=== PATIENT | female | born 1935 | race Caucasian/White ===

== ENCOUNTER 2022-07-19 14:41 | Emergency (ER) | payer MEDICARE, MEDICAID, SELFPAY ==
--- NOTE | ~2022-07-19 | XR_ITS ---
EXAMINATION: XR ELBOW, RIGHT CLINICAL INFORMATION: Pain, fall. COMPARISON: None available. TECHNIQUE: AP, lateral, and oblique views of the right elbow. FINDINGS: No acute fractures or subluxation. Evaluation of joint effusion is somewhat limited due to partial extension of the elbow on the lateral view, however accounting for this technique limitation, no discrete large joint effusion is noted. No unexpected radiopaque foreign bodies. XR/XR elbow RT 2V IMPRESSION: No acute fractures or subluxation.
--- NOTE | ~2022-07-19 | XR_ITS ---
EXAMINATION: XR RIBS, RIGHT CLINICAL INFORMATION: Pain. COMPARISON: None available. TECHNIQUE: 3 views of the right ribs were obtained. FINDINGS: No focal airspace opacity, pleural effusion or pneumothorax. Tortuous thoracic aorta with atherosclerotic disease, otherwise normal appearance of the cardiomediastinal silhouette. No evidence of displaced rib fractures. Age indeterminate compression deformity in the lower thoracic spine. Left upper quadrant surgical clips noted. Extensive vascular calcifications noted. XR/XR ribs RT min 3V w CXR1V IMPRESSION: 1. No acute cardiopulmonary findings. 2. No evidence of displaced rib fractures. 3. Age indeterminate compression deformity in the lower thoracic spine, correlate with point tenderness and if indicated further correlation with dedicated radiographic views of the thoracic and lumbar spine.
--- NOTE | ~2022-07-19 | XR_ITS ---
EXAMINATION: XR FOOT, LEFT CLINICAL INFORMATION: Pain, fall. COMPARISON: None available. TECHNIQUE: AP, lateral, and oblique views of the left foot. FINDINGS: Decreased bone mineralization and diffuse nonspecific heterogeneity of the bone marrow, limiting assessment of subtle fractures. No discrete displaced fracture or subluxation. 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 Nonspecific diffuse soft tissue thickening. Extensive vascular calcifications. XR/XR foot LT 2V IMPRESSION: 1. No acute displaced fracture or malalignment. 2. Decreased bone mineralization and nonspecific heterogeneity of the bone marrow, limiting assessment of subtle fractures. If indicated, consider further evaluation with CT or MR.
[2022-07-19 14:50] VITALS: BP 152/94; PULSE 82; O2SAT 98
[2022-07-19 15:30] VITALS: BP 165/54; PULSE 81; RESP 18; TEMP 36.8; O2SAT 97; BMI 29.5
[2022-07-19 16:55] VITALS: BP 175/66; PULSE 86; RESP 16; TEMP 36.8; O2SAT 98
--- NOTE | 2022-07-19 17:00 | ED_ITS ---
HPI - Fall General Chief Complaint: Fall Stated Complaint: FALL,L ANKLE/BODY PAIN PER EMS Time Seen by Provider: 07/19/22 15:55 Source: patient Mode of arrival: EMS Limitations: no limitations History of Present Illness HPI Narrative: Patient comes to the emergency room complaining of a pain in her left foot and ribs on the left side. According to the patient, yesterday she was trying to get a scale from beneath the bed, patient kneeled down to grab it, then she she was unable to stand up. Patient states that she did not fall. Patient yelled for help, and people who work at the facility help her to stand up. Patient denies being on blood thinners. Related Data Allergies Allergy/AdvReac Type Severity Reaction Status Date / Time Sulfa (Sulfonamide Allergy Unknown UNKNOWN Unverified 10/24/19 16:06 Antibiotics) [SULFA (SULFONAMIDE ANTIBIOTICS)] Review of Systems Review of Systems: Constitutional : No Weight loss, No Fever, No Chills, No Night Sweats, No Fatigue, No Malaise ENT/Mouth : No Hearing loss, No Ear Pain, No Nasal Congestion, No Sinus Pain, No Hoarseness, No sore throat, No Rhinorrhea, No Swallowing Difficulty Eyes: No Eye Pain, No Swelling, No Redness, No Foreign Body, No Discharge, No Vision Changes Cardiovascular : No Chest Pain, No SOB, No Dyspnea on Exertion, No Orthopnea, No Edema, No Palpitations Respiratory : No Cough, No Sputum, No Wheezing, No Smoke Exposure, No Dyspnea Gastrointestinal : No Nausea, No Vomiting, No Diarrhea, No Constipation, No abdominal Pain, No Hematochezia, No Melena Genitourinary : no irregular bleeding, No Dysuria, No Urinary Frequency, No Hematuria, No Urinary Incontinence, No Urgency, No Flank Pain, No Urinary Flow Changes, No Hesitancy Musculoskeletal : Patient complaining of rib pain on the left, left foot pain Skin : Complaining of a skin abrasion on the right elbow Neuro : No Weakness, No Numbness, No Paresthesias, No Loss of Consciousness, No Dizziness, No Headache Psych : No Anxiety/Panic, No Depression, No SI/HI/AH/VH, No Social Issues, Heme/Lymph: No Bruising, No Bleeding,No Lymphadenopathy Endocrine : No Polyuria, No Polydipsia, No Temperature Intolerance PMFSH Social History Social History Alcohol intake: never Smoked in Last 30 Days: No Use of substances other than those prescribed or required for medical reasons: No Advance Directives: No Advance Directives Information Provided: No Physical Exam Vital Signs: Vital Signs: Last Vital Signs Temp 98.4 F 07/19/22 18:38 Pulse 90 07/19/22 18:38 Resp 16 07/19/22 18:38 BP 189/49 H 07/19/22 18:38 Pulse Ox 96 07/19/22 18:38 O2 Del Method Room Air 07/19/22 18:38 BMI result Body Mass Index 29.5 Const: Other: Appearance: Alert. Oriented X3. No acute distress. Eyes: Pupils equal, round and reactive to light. ENT: Pharynx normal. Neck: Normal inspection. Neck supple. No lymph nodes noted. No crepitus CVS: Normal heart rate and rhythm. Pulses normal. Normal S1 and S2, complaining of left-sided rib pain Respiratory: No respiratory distress. Breath sounds normal. No Wheezing. No rales Abdomen: Soft and nontender. No rigidity. No distention. Skin: Skin warm and dry. There is a skin tear of the right elbow, the skin on the tear looks old, almost necrotic Extremities: No lower extremity edema. Left foot has ecchymosis on the dorsum, normal flexion and extension Neuro: Oriented X 3. No motor deficit. No sensory deficit. Moving all extremities. No slurred speech. CN 2 through 12 grossly intact Psych: calm, cooperative, normal affect Course Course Course Narrative: -patient denies falling, patient states that she has had a difficult time standing up from a kneeling position -patient denies head or neck injury -x-rays pending. Medical Decision Making Medical Decision Making [facility] Narrative: -the skin on the tear look necrotic, patient was numbed with 1 % lidocaine 2 mL, the necrotic tissue was removed, now the abrasion looks clean. Radiology Impression Discussion of test interpretation with radiology: I have reviewed the radiologist's reading. Radiologist Impression: 1.? No acute cardiopulmonary findings. 2.? No evidence of displaced rib fractures. 3.? Age indeterminate compression deformity in the lower thoracic spine, correlate with point tenderness and if indicated further correlation with dedicated radiographic views of the thoracic and lumbar spine. 1.? No acute displaced fracture or malalignment. 2.? Decreased bone mineralization and nonspecific heterogeneity of the bone marrow, limiting assessment of subtle fractures. If indicated, consider further evaluation with CT or MR. Discharge Plan Discharge Clinical Impression: Fall, Contusion, Skin tear of right upper extremity Patient Disposition: Home, Self-Care Instructions: Skin Tear (ED) Additional Instructions: Please follow-up with your primary care physician tomorrow. If you have any worsening or new symptoms, please return to the emergency room or call 911
[2022-07-19 18:38] VITALS: BP 189/49; PULSE 90; RESP 16; TEMP 36.9; O2SAT 96
--- NOTE | 2022-07-19 18:50 | MHC.EDTECH ---
PATIENT WAS INCONIENT OF URINE ,CARE GIVEN ,BED PAD CHANGE .
--- NOTE | 2022-07-19 19:53 | PC.NURSE ---
assumed care of pt at 1900 - pt resting comfortably on stretcher in no apparent distress. pt offers no complaints at this time. discharge ready, waiting for ambulance back to facility.
[2022-07-19 19:56] VITALS: BP 181/38; PULSE 86; RESP 16; TEMP 36.6
--- NOTE | 2022-07-19 19:58 | MHC.EDTECH ---
this pct offer patient food ,pt said she not hungry ,and did not want anything to drink or eat ,patient is dry and was reposition ,2000 vitals sign taken warm blanket given .
--- NOTE | 2022-07-19 20:20 | PC.NURSE ---
This rn called facility and left a message letting them know patient is returning to facility via ambulance.
== END 2022-07-19 20:27 | disposition home or self-care (01) ==
PROVIDERS: Emergency Provider Emergency Medicine
DX: S90.02XA Contusion of left ankle, initial encounter (principal); S29.9XXA Unspecified injury of thorax, initial encounter; M25.572 Pain in left ankle and joints of left foot; M25.521 Pain in right elbow; M79.10 Myalgia, unspecified site; M79.672 Pain in left foot; W01.0XXA Fall on same level from slipping, tripping and stumbling without subsequent striking against object, initial encounter; Y93.9 Activity, unspecified; Y92.9 Unspecified place or not applicable; Y99.9 Unspecified external cause status; Z79.899 Other long term (current) drug therapy
CPT/HCPCS: 71101; 73070; 73620; 99284

== ENCOUNTER 2023-03-11 17:02 | Emergency (ER) | payer MEDICARE, MEDICAID, SELFPAY ==
[2023-03-11 17:10] VITALS: BP 156/38; PULSE 85; PULSE 92; RESP 18; TEMP 36.6; O2SAT 96; O2SAT 97; BMI 30.6
--- NOTE | 2023-03-11 17:24 | PC.NURSE ---
coming from [facility] for uti symptoms ongoing for over 2 weeks. states that she ambulates to the bathroom using a walker. watching tv in room with call darby within reach
--- NOTE | 2023-03-11 17:32 | ED_ITS ---
HPI - Female Genitourinary General Chief complaint: Urogenital-Female Stated complaint: BLADDER PAIN X2WKS, FREQUENT URINATION Time Seen by Provider: 03/11/23 17:32 Source: patient and EMS Mode of arrival: EMS Limitations: no limitations History of Present Illness HPI Narrative: Patient is an 87 year old assigned female at with a history of CKD presenting to the emergency department today from [facility] for increased urinary frequency and abdominal pressure. Patient states that she recently noticed that she is going to the bathroom much more and is having some lower abdominal pressure. Patient denies any dizziness, lightheadedness, nausea, vomiting, fever, chills, blurry vision, double vision, loss of vision, chest pain, difficulty breathing, shortness of breath, back pain, night sweats, pain with urination, increased urinary urgency, blood in [his/her/their] urine or stool, syncope or a near syncopal episode, recent trauma or falls, bowel incontinence, bladder incontinence, bowel retention, bladder retention, or any other complaints at this time. MD elicited complaint: dysuria Location of symptoms: suprapubic Severity: mild Female Urogenital Radiation: Suprapubic Severity scale (1-10): 3 Quality of pain: dull Consistency: constant Vaginal discharge: none Vaginal bleeding: none Urinary symptoms: Frequency Exacerbating factors: urination Relieving factors: none Sexual activity: No Patient : No Possible : postmenopausal Related Data Previous Rx's Medication Instructions Recorded cefuroxime axetil 250 mg tablet 250 mg PO BID 7 days #14 tabs 03/11/23 Allergies Allergy/AdvReac Type Severity Reaction Status Date / Time Sulfa (Sulfonamide Allergy Unknown UNKNOWN Unverified 10/24/19 16:06 Antibiotics) [SULFA (SULFONAMIDE ANTIBIOTICS)] Review of Systems 2 Constitutional: Constitutional: Reports no additional constitutional complaints, Denies chills, Denies fever(s) and Denies night sweats Eyes: Eyes: Reports no additional eye complaints, Denies blurry vision, Denies change in vision, Denies diplopia, Denies eye discharge, Denies loss of vision and Denies eye pain ENT: Denies dizziness Cardiovascular: Cardiovascular: Reports no additional cardiovascular complaints, Denies chest pain, Denies lightheadedness, Denies Loss of Consciousness and Denies dyspnea Respiratory: Respiratory: Reports no additional respiratory complaints and Denies dyspnea Gastrointestinal: Gastrointestinal: Reports no additional gastrointestinal complaints, Reports abdominal pain, Denies melena, Denies hematochezia, Denies change in bowel habits and Denies change in stool character Genitourinary: Genitourinary: Denies hematuria, Denies urinary frequency, Denies dysuria, Denies urinary incontinence, Denies urinary hesitancy and Denies urinary urgency Comments: increased urinary frequency Musculoskeletal: Musculoskeletal: Reports no additional musculoskeletal complaints, Denies numbness and Denies tingling Neurologic: Denies dizziness, Denies loss of vision, Denies numbness and Denies tingling Psychiatric: Psychiatric: Reports no additional psychiatric complaints Endocrine: Endocrine: Reports no additional endocrine complaints Hematologic/Lymphatic: Hematologic/Lymphatic: Reports no additional hematologic/lymphatic complaints Allergic/Immunologic: Allergic/Immunologic: Reports no additional allergic/immunologic complaints PMFSH Past Medical History Attestation statement: The following information was validated with the patient. Source: old records reviewed and nursing notes reviewed Social History Social History Alcohol intake: never Advance Directives: Yes Advance Directives on File: Yes Advance Directives Date on File: 07/20/22 Patient : No Physical Exam 2 Vital Signs: Vital Signs: Last Vital Signs Temp 97.9 F 03/11/23 17:10 Pulse 85 03/11/23 17:10 Resp 18 03/11/23 17:10 BP 156/38 H 03/11/23 17:10 Pulse Ox 96 03/11/23 17:10 O2 Del Method Room Air 03/11/23 17:10 BMI result Body Mass Index 30.6 Const: General: cooperative, no acute distress, alert and awake Nutritional Appearance: well nourished Orientation/consciousness: patient oriented x3 Limitations: no limitations HEENT: Head: Yes normal to inspection and Yes atraumatic Ears: hearing grossly normal bilaterally and external ears normal General nose exam: Normal external nose present, no nasal discharge noted and no epistaxis Face and sinus: Yes normal facial exam, No abrasion and No laceration Mouth: Normal oral and palatal mucosa present, no drooling and no muffled voice Eyes: General: appearance normal, both eyes and all related structures P eriorbital: periorbital findings normal Eyelids: Yes eyelids normal C onjunctivae: conjunctivae normal Pupils: Equal, round and reactive pupils present EOM: EOMs intact bilaterally Neck: Neck: Yes normal visual inspection, Yes full ROM and Yes no lymphadenopathy Chest: Chest palpation & inspection: normal inspection of the chest Resp: Effort & Inspection: normal respiratory effort and able to speak in complete sentences GI: Inspection: Yes normal to inspection Palpation (GI): Soft to palpation Neuro: General: patient oriented x3 and moves all extremities Cranial nerves: Yes Equal, round and reactive pupils present Cognition (Neuro): n ormal cognition Motor exam (neuro): 5/5 motor strength present throughout Sensory Exam: Normal double simultaneous stimulation for sensation C oordination: [id number] test normal Extrem: General: Yes normal to inspection, Yes full ROM and Yes capillary refill normal Psych: Appearance: grossly normal Mental Status: mental status grossly normal Affect: normal affect Attitude: cooperative Thought process: N ormal thought process present Thought content: Normal thought content present Insight: Good insight present (Psych) Medications Administered Discontinued Medications Generic Name Dose Route Start Last Admin Trade Name Freq PRN Reason Stop Dose Admin Cefuroxime Axetil 250 mg 03/11/23 18:30 03/11/23 18:36 Cefuroxime Axetil 250 Mg Tablet PO 03/11/23 18:31 250 mg ONCE ONE Administration Medical Decision Making Medical Decision Making [facility] Narrative: Patient is an 87 year old assigned female at with a history of CKD presenting to the emergency department today with lower abdominal pressure and increased urinary frequency. Patient's physical exam was unremarkable. Patient's blood work showed slightly elevated BUN and CR however, this is chronic for the patient with her CKD. Patient's urine showed an acute infection. I explained my physical exam findings as well as all test results to the patient. I answered all questions asked by the patient. Patient was given her first dose of antibiotic while in the department. I stressed the importance of the patient taking her medication as prescribed. I stressed the importance of the patient following up with her primary care provider. I stressed the importance of the patient returning to the emergency department immediately if her symptoms were to worsen or if she were to develop any dizziness, shortness of breath, difficulty breathing, chest pain, blurry vision, loss of vision, nausea, vomiting, abdominal pain, fever, chills, back pain, or any other complaints. Patient verbalized agreement and understanding with this treatment plan and discharge. Differential Diagnosis Differential Diagnoses: The differential diagnosis associated with the presentation includes UTI Cystitis CKD MELLO Admission/Observation Consideration of admission/observation: Escalation of care including admission/observation considered Patient would have been admitted to the hospital had her work up had any findings where hospital admission was appropriate and her clinical presentation warranted hospital admission. Lab Data [facility] Lab Attestation statement: I reviewed the patient's lab results. My interpretation of these results are in the [facility] Rationale portion of this note. 03/11/23 17:50 03/11/23 17:50 Labs: Lab Results 03/11/23 03/11/23 Range/Units 17:50 18:05 WBC 4.3 L (4.8-10.8) X10*3/uL RBC 2.53 L (4.20-5.50) X10*6/uL Hgb 8.7 L (12.0-16.0) g/dl Hct 27.0 L (37.0-47.0) % MCV 106.7 H (80.0-98.0) fL MCH 34.4 H (27.0-33.0) pg MCHC 32.2 (31.0-35.0) g/dl RDW 16.7 H (11.0-16.0) % Plt Count 141 L (160-400) X10*3/uL MPV 10.8 (9.4-12.3) fL Immature Gran % (Auto) 0.7 H (0.0-0.4) % Neut % (Auto) 55.8 (45-73) % Lymph % (Auto) 29.0 (20-40) % [place] % (Auto) 9.1 (2-11) % Eos % (Auto) 4.9 H (0-4) % Baso % (Auto) 0.5 (0-2) % Lymph # (Auto) 1.2 (1.2-4.9) X10*3/uL [place] # (Auto) 0.4 (0.1-1.2) X10*3/uL Eos # (Auto) 0.2 (0.0-0.4) X10*3/uL Baso # (Auto) 0.0 (0.0-0.2) X10*3/uL Abs Immat Gran (auto) 0.03 (0.00-0.03) X10*3/uL Absolute Neuts (auto) 2.4 (2.0-8.3) x10*3/uL Absolute Nucleated RBC 0.000 (0.0-0.012) X10*3/uL Nucleated RBC % (auto) 0.0 (0.0-0.2) /100WBC Sodium 141 (135-145) mmol/L Potassium 4.4 (3.3-5.1) mmol/L Chloride 113 H (96-108) mmol/L Carbon Dioxide 21 L (22-29) mmol/L Anion Gap 11 L (12-20) BUN 30 H (9-16) mg/dL Creatinine 1.95 H (0.5-1.4) mg/dL Estim Creat Clear Calc 18.2 Estimated GFR 24 Random Glucose 110 (60-115) mg/dL Calcium 9.5 (8.4-10.2) mg/dL Total Bilirubin 0.3 (0.0-1.0) mg/dL AST 12 (5-31) U/L ALT 8 (0-31) U/L Alkaline Phosphatase 48 (39-117) U/L Total Protein 7.1 (6.5-8.0) g/dL Albumin 3.1 L (3.5-5.0) g/dL Urine Color Yellow Urine Appearance Turbid Urine pH 5.5 (5.0-9.0) Ur Specific [place] 1.015 (1.005-1.025) Urine Protein 100 (2+) H (Neg-Trace) mg/dL Urine Glucose (UA) Negative (Negative) mg/dL Urine Ketones Negative (Negative) mg/dL Urine Blood Large (3+) H (Negative) Urine Nitrite Negative (Negative) Ur Leukocyte Esterase Large (3+) H (Negative) Urine RBC >20 H (0-2) /HPF Urine WBC >50 H (0-5) /HPF Ur Squamous Epith Cells 6-10 (0-2) /HPF Urine Bacteria 1+ (None Seen) Hyaline Casts 0-2 (0-2) /LPF Independent Historian Clinical information obtained from an independent historian. History obtained from or confirmed by: EMS (EMS provided additional history and confirmed the history provided by the patient.) Prescription Management I considered prescription management with: Antibiotic (patient prescribed an antibiotic for UTI) Chronic Conditions Patient?s care impacted by: Other (CKD) Discharge Plan Discharge Clinical Impression: Urinary tract infection Patient Disposition: Home, Self-Care Instructions: Urinary Tract Infection in Older Adults (ED) Additional Instructions: Follow up with your primary care provider. Return to the emergency department immediately if your symptoms worsen or if you develop any dizziness, shortness of breath, difficulty breathing, chest pain, blurry vision, loss of vision, nausea, vomiting, abdominal pain, fever, chills, back pain, or any other complaints. Prescriptions: New cefuroxime axetil 250 mg tablet 250 mg PO BID 7 Days Qty: 14 0RF Referrals: [facility] [Provider Group] (Call to establish and follow up with a primary care provider. If you already have a primary care provider, please follow up with them.) [facility] [Provider Group] (Call to establish and follow up with a primary care provider. If you already have a primary care provider, please follow up with them.) [facility] [Provider Group] (Call to establish and follow up with a primary care provider. If you already have a primary care provider, please follow up with them.) Interventions: ED Discharge Assessment Last Done: 03/11/23 19:57 Discharge Date/Time: 03/11/23 19:59 Print Language: Welsh
[2023-03-11 17:55] LABS: MANUAL DIFF FLAG NO
[2023-03-11 18:11] LABS: Appearance Urine Turbid; Color Urine Yellow; Glucose Urine UA Negative (Negative); Leukocyte Esterase Urine Large (3+) (Negative); Nitrite Urine Negative (Negative); PH 5.5 (5.0-9.0); Specific Gravity - Urine 1.015 (1.005-1.025); UMIC TRIGGER UACC YES; Urine Blood Large (3+) (Negative); Urine Ketones Negative (Negative); Urine Protein 100 (2+) mg/dL (Neg-Trace)
[2023-03-11 18:13] LABS: Alanine Aminotransferase 8 U/L (0-31); Albumin Level 3.1 g/dL (3.5-5.0); Alkaline Phosphatase 48 U/L (39-117); Anion Gap 11 (12-20); Aspartate Amino Transferase 12 U/L (5-31); Bilirubin Total 0.3 mg/dL (0.0-1.0); Blood Urea Nitrogen 30 mg/dL (9-16); Calcium 9.5 mg/dL (8.4-10.2); Carbon Dioxide 21 mmol/L (22-29); Chloride 113 mmol/L (96-108); Creatinine Clr Calc Pharmacy 18.2; Estimated Glomerular Filt Rate 24; Glucose Random 110 mg/dL (60-115); Potassium 4.4 mmol/L (3.3-5.1); Sodium 141 mmol/L (135-145); Total Protein 7.1 g/dL (6.5-8.0)
[2023-03-11 18:16] LABS: Basophils Percent Auto 0.5 % (0-2); Eosinophils Absolute Auto 0.2 X10*3/uL (0.0-0.4); Eosinophils Percent Auto 4.9 % (0-4); Hemoglobin 8.7 g/dl (12.0-16.0); Imm Gran Abs Auto 0.03 X10*3/uL (0.00-0.03); Imm Gran Pct Auto 0.7 % (0.0-0.4); Lymphocytes Absolute Auto 1.2 X10*3/uL (1.2-4.9); Mean Corpuscular HGB Conc 32.2 g/dl (31.0-35.0); Mean Corpuscular Hemoglobin 34.4 pg (27.0-33.0); Mean Corpuscular Volume 106.7 fL (80.0-98.0); Mean Platelet Volume 10.8 fL (9.4-12.3); Monocytes Absolute Auto 0.4 X10*3/uL (0.1-1.2); Monocytes Percent Auto 9.1 % (2-11); Neutrophils Absolute Auto 2.4 x10*3/uL (2.0-8.3); Neutrophils Percent Auto 55.8 % (45-73); Platelet Count 141 X10*3/uL (160-400); Red Blood Count 2.53 X10*6/uL (4.20-5.50); Red Cell Distribution Width 16.7 % (11.0-16.0); White Blood Count 4.3 X10*3/uL (4.8-10.8)
--- NOTE | 2023-03-11 18:22 | PC.NURSE ---
ambulated using walker with strong, steady gait. urine sample obtained. call darby remains within reach.
[2023-03-11 18:24] LABS: Bacteria Urine 1+ (None Seen); Hyaline Casts Urine 0-2 /LPF (0-2); RBC Urine >20 /HPF (0-2); UACC Culture Trigger YES; WBC Urine >50 /HPF (0-5)
[2023-03-11] MEDS: cefuroxime axetiL 250 MG TABLET PO (18:36)
--- NOTE | 2023-03-11 19:56 | PC.NURSE ---
Called [facility] and gave nursing report to Carolyn as pt is returning via EMS.
== END 2023-03-11 19:59 | disposition home or self-care (01) ==
PROVIDERS: Emergency Provider Emergency Medicine Emergency Medical Services
DX: N39.0 Urinary tract infection, site not specified (principal)
CPT/HCPCS: 36415; 80053; 81001; 85025; 87086; 87088; 87186; 99283; 99284

== ENCOUNTER 2023-04-07 09:33 | Inpatient (IN) | payer MEDICARE, MEDICAID, SELFPAY ==
[2023-04-07] VITALS (8 sets, daily range): BP systolic 118–151; BP diastolic 44–93; PULSE 99–110; RESP 16–20; TEMP 36.2–36.7; O2SAT 90–95; BMI 26.4; BMI 26.6
--- NOTE | ~2023-04-07 | US_ITS ---
EXAMINATION: US RETROPERITONEAL COMPLETE (RENAL) CLINICAL INFORMATION: Renal failure, evaluate for obstruction. COMPARISON: None available. TECHNIQUE: Real-time imaging of the kidneys and bladder. FINDINGS: RIGHT KIDNEY: 9.2 x 4.2 x 4.1 cm (SAG x AP x TRV). The kidney is normal in size, contour, and echogenicity. Renal cortical thickness is normal. No calculi or focal parenchymal lesions. No hydronephrosis. LEFT KIDNEY: 9.0 x 4.4 x 3.5 cm (SAG x AP x TRV). The kidney is normal in size, contour, and echogenicity. Renal cortical thickness is normal. No focal parenchymal lesions or hydronephrosis. There is a 0.9 cm calculus projecting over the renal pelvis. BLADDER: Partially distended. Bilateral ureteral jets are demonstrated. Prevoid bladder volume is 77.4 mL. Postvoid bladder volume was not obtained. US/US retroperitoneal comp IMPRESSION: Nonobstructive 0.9 cm left renal calculus.
--- NOTE | ~2023-04-07 | CT_ITS ---
EXAMINATION: CT HEAD WITHOUT CONTRAST CLINICAL INFORMATION: Encephalopathy COMPARISON: None available. TECHNIQUE: Contiguous axial imaging was performed from the skull base to vertex without intravenous administration of contrast. This CT examination was performed using dose optimization techniques as appropriate, variously including the following: *Automated exposure control *Adjustment of mA and/or kV according to patient size (this includes techniques or standardized protocols for targeted exams where dose is matched to indication/reason for exam; i.e. extremities or head) *Use of iterative reconstruction technique DLP: 6:15 mGy-cm FINDINGS: There is underlying atrophy. Vascular calcifications are seen. No evolving infarct, mass lesion, mass effect, midline shift, hemorrhage or extra-axial fluid collections are identified. Lens extractions have been performed. Mild left ethmoid sinus disease. CT/CT head/brain wo IV con IMPRESSION: Age related volume loss. No acute intracranial pathology. Mild sinus disease.
--- NOTE | ~2023-04-07 | XR_ITS ---
EXAMINATION: XR CHEST CLINICAL INFORMATION: Shortness of breath COMPARISON: Right rib from 07/19/2022 TECHNIQUE: Frontal view of the chest was obtained. FINDINGS: Focal radiopacity involving the right upper lobe suggesting infectious/inflammatory etiology. Bronchial thickening. No pneumothorax. Trachea is midline. Cardiomediastinal silhouette is not enlarged. Aorta demonstrates tortuosity with atherosclerotic calcifications. No large pleural effusion. Degenerative changes of the thoracolumbar spine. Soft tissues are unremarkable. XR/XR chest 1V IMPRESSION: 1. Focal radiopacity involving the right upper lobe suggesting infectious/inflammatory etiology. 2. Bronchial thickening.
--- NOTE | 2023-04-07 10:13 | ED.GENADULT ---
HPI - General Adult General Chief complaint: General Medical Stated complaint: FLU SYMPTOMS INCREASED WEAKNESS Time Seen by Provider: 04/07/23 09:42 Source: patient Mode of arrival: ambulatory Limitations: other (Poor historian) History of Present Illness HPI narrative: This is an 88-year-old female hx of htn, ckd history of recent influenza + on 04/01/23 presenting from [facility] for concerns of weakness, decreased appetite, productive cough of yellow sputum, fatigue, malaise. Patient reports she has been feeling sick for about a month. She does not seem to be getting better so she decided to come in and get seen. Patient reports difficulty with breathing and she reports she is wheezing. Denies chest pain, fevers, chills, nausea, vomiting, changes in urination or bowel habits, headache, vision changes, dizziness and weakness. Related Data Previous Rx's Medication Instructions Recorded cefuroxime axetil 250 mg tablet 250 mg PO BID 7 days #14 tabs 03/11/23 Allergies Allergy/AdvReac Type Severity Reaction Status Date / Time Sulfa (Sulfonamide Allergy Unknown UNKNOWN Unverified 10/24/19 16:06 Antibiotics) [SULFA (SULFONAMIDE ANTIBIOTICS)] Review of Systems Review of Systems: Yes all other systems are reviewed and are negative [facility] Past Medical History Attestation statement: The following information was validated with the patient. Source: old records reviewed and nursing notes reviewed Social History Social History Alcohol intake: never Advance Directives: Yes Advance Directives on File: Yes Advance Directives Date on File: 07/20/22 Physical Exam ED Vital Signs: Vital Signs - 24 hr 04/07/23 09:42 04/07/23 11:29 Temperature 97.8 F 97.9 F Pulse Rate 104 H 100 Respiratory Rate 16 18 Blood Pressure 130/51 L 129/44 L Pulse Oximetry 95 90 L Oxygen Delivery Method Room Air Nasal Cannula Oxygen Flow Rate 1 BMI result Body Mass Index 26.4 vss Appearance: Alert.? Oriented X3.? No acute distress.? Head: Normocephalic, atraumatic, no step-offs or deformities Eyes: Pupils equal, round and reactive to light.? Neck: Normal inspection.? Neck supple.? CVS: Normal heart rate and rhythm.? Pulses normal.? Respiratory: No respiratory distress.? Breath sounds bilateral lower lobe crackles (worse right upper lobe) and expiratory wheezing..? Abdomen: Soft and nontender.?+ ostomy in place. Skin: Skin warm and dry.? Normal skin color.? Normal skin turgor.? Extremities: No lower extremity edema.? No calf ttp. 5/5 strength to bilateral upper and lower extremities Neuro: Oriented X 3.? No motor deficit.? No sensory deficit. CN 2-12 intact Course Reevaluation(s) Reevaluation #1: Patient with significant crackles to right upper lobe. X-ray concerning for right upper lobe consolidation. At this time infection suspected labs, blood cultures, lactic acid, antibiotics and fluids ordered. Patient is tachycardic and hypoxic. She is 93% on room air however when she starts moving she dips down to mid 80s , 83-85%. Sepsis focus exam preformed Time: 10:23 Reevaluation #2: Patient is sat forward and oxygen went down to 86, patient has a wet cough. Receiving 2.5 nebulizing treatment. Time: 10:51 Reevaluation #3: Patient's CBC with pending white blood cell count, a macrocytic anemia as noted appears to be around patient's baseline. Chemistry pending. Lactic acid 1.4. UA with large amount of blood and leukocyte esterases question acute urinary infection versus cystitis. Patient receiving antibiotics regardless. Flu, COVID, RSV negative. Patient noted to have a focal radiopacity involving the right upper lobe suggesting infectious etiology again I did suspect pneumonia. Patient was covered with antibiotics. Time: 11:25 Additional Reevaluation(s): WBC count 7.2 - 19% bands 1126 BETTINA Gomes here to admit patient. Medications Administered Generic Name Dose Route Start Last Admin Trade Name Freq PRN Reason Stop Dose Admin Azithromycin 500 mg/ Sodium 250 mls @ 125 mls/hr 04/07/23 10:21 04/07/23 11:24 Chloride IV 04/07/23 12:20 125 mls/hr ONCE ONE Administration Discontinued Medications Generic Name Dose Route Start Last Admin Trade Name Freq PRN Reason Stop Dose Admin Ceftriaxone Sodium 1 gm/ 50 mls @ 100 mls/hr 04/07/23 10:21 04/07/23 11:28 Sodium Chloride IV 04/07/23 10:50 Infused ONCE ONE Infusion Sodium Chloride 1,968 mls @ 1,968 mls/hr 04/07/23 10:22 04/07/23 10:58 Ns 30 ml/kg infuse over 1 hr (1968 ml) 04/07/23 11:21 1,968 mls/hr IV Administration .Q1H STA Medical Decision Making Medical Decision Making [facility] Narrative: 88-year-old female presents with concerns of shortness of breath, productive cough, fatigue, malaise X 1 month. Influenza + on 04/01 PE- crackles to b/l LL and RUL History and physical exam concerning for pneumonia versus pleural effusion. Unlikely acute hypoxic respiratory failure, pulmonary embolism, CHF, ACS. Plan viral testing, imaging. Differential Diagnosis Differential Diagnoses: The differential diagnosis associated with the presentation includes History and physical exam concerning for pneumonia versus pleural effusion. Unlikely acute hypoxic respiratory failure, pulmonary embolism, CHF, ACS. Admission/Observation Consideration of admission/observation: Escalation of care including admission/observation considered Possible Lab Data [facility] Lab Attestation statement: I reviewed the patient's lab results. 04/07/23 10:48 04/07/23 10:30 Labs: Lab Results 04/07/23 04/07/23 04/07/23 Range/Units 10:11 10:30 10:48 WBC 7.2 (4.8-10.8) X10*3/uL RBC 3.06 L D (4.20-5.50) X10*6/uL Hgb 10.1 L (12.0-16.0) g/dl Hct 32.0 L (37.0-47.0) % MCV 104.6 H (80.0-98.0) fL MCH 33.0 (27.0-33.0) pg MCHC 31.6 (31.0-35.0) g/dl RDW 17.6 H (11.0-16.0) % Plt Count 192 D (160-400) X10*3/uL MPV 11.7 (9.4-12.3) fL Immature Gran % (Auto) Cancelled Neut % (Auto) Cancelled Lymph % (Auto) Cancelled [place] % (Auto) Cancelled Eos % (Auto) Cancelled Baso % (Auto) Cancelled Lymph # (Auto) Cancelled [place] # (Auto) Cancelled Eos # (Auto) Cancelled Baso # (Auto) Cancelled Abs Immat Gran (auto) Cancelled Absolute Neuts (auto) Cancelled Absolute Nucleated RBC 0.000 (0.0-0.012) X10*3/uL Nucleated RBC % (auto) 0.0 (0.0-0.2) /100WBC Neutrophils % (Manual) 56 (45-73) % Band Neutrophils % 19 H (3-5) % Lymphocytes % (Manual) 16 L (20-40) % Monocytes % (Manual) 7 (2-11) % Metamyelocytes % 2 % Abs Neuts (Manual) 5.4 (2.0-8.3) X10*3/uL Lymphocytes # (Manual) 1.2 (1.2-4.9) X10*3/uL Monocytes # (Manual) 0.5 (0.1-1.2) X10*3/uL Metamyelocytes # 0.1 X10*3/uL Toxic Vacuolation PRESENT Platelet Estimate NORMAL (NORMAL) Plt Morphology Comment NORMAL RBC Morphology NOTED Macrocytosis 1+ (5-14) /OIF Acanthocytes (Spur) 3+ (>5) /OIF Schistocytes 1+ (0-2) /OIF Lactic Acid 1.4 (0.5-2.0) mmol/L Urine Color Urine Appearance Urine pH (5.0-9.0) Ur Specific [place] (1.005-1.025) Urine Protein (Neg-Trace) mg/dL Urine Glucose (UA) (Negative) mg/dL Urine Ketones (Negative) mg/dL Urine Blood (Negative) Urine Nitrite (Negative) Ur Leukocyte Esterase (Negative) Urine RBC (0-2) /HPF Urine WBC (0-5) /HPF Urine WBC Clumps Ur Squamous Epith Cells (0-2) /HPF Urine Bacteria (None Seen) Hyaline Casts (0-2) /LPF Influenza Type A (PCR) NEGATIVE (Negative) Influenza Type B (PCR) NEGATIVE (Negative) RSV RNA Qual (PCR) NEGATIVE (Negative) SARS-CoV-2 RNA (RT-PCR) NEGATIVE (Negative) 04/07/23 Range/Units 11:12 WBC (4.8-10.8) X10*3/uL RBC (4.20-5.50) X10*6/uL Hgb (12.0-16.0) g/dl Hct (37.0-47.0) % MCV (80.0-98.0) fL MCH (27.0-33.0) pg MCHC (31.0-35.0) g/dl RDW (11.0-16.0) % Plt Count (160-400) X10*3/uL MPV (9.4-12.3) fL Immature Gran % (Auto) Neut % (Auto) Lymph % (Auto) [place] % (Auto) Eos % (Auto) Baso % (Auto) Lymph # (Auto) [place] # (Auto) Eos # (Auto) Baso # (Auto) Abs Immat Gran (auto) Absolute Neuts (auto) Absolute Nucleated RBC (0.0-0.012) X10*3/uL Nucleated RBC % (auto) (0.0-0.2) /100WBC Neutrophils % (Manual) (45-73) % Band Neutrophils % (3-5) % Lymphocytes % (Manual) (20-40) % Monocytes % (Manual) (2-11) % Metamyelocytes % % Abs Neuts (Manual) (2.0-8.3) X10*3/uL Lymphocytes # (Manual) (1.2-4.9) X10*3/uL Monocytes # (Manual) (0.1-1.2) X10*3/uL Metamyelocytes # X10*3/uL Toxic Vacuolation Platelet Estimate (NORMAL) Plt Morphology Comment RBC Morphology Macrocytosis /OIF Acanthocytes (Spur) /OIF Schistocytes /OIF Lactic Acid (0.5-2.0) mmol/L Urine Color Dark Yellow Urine Appearance Turbid Urine pH 5.5 (5.0-9.0) Ur Specific [place] 1.015 (1.005-1.025) Urine Protein 100 (2+) H (Neg-Trace) mg/dL Urine Glucose (UA) Negative (Negative) mg/dL Urine Ketones Negative (Negative) mg/dL Urine Blood Large (3+) H (Negative) Urine Nitrite Negative (Negative) Ur Leukocyte Esterase Large (3+) H (Negative) Urine RBC >20 H (0-2) /HPF Urine WBC >50 H (0-5) /HPF Urine WBC Clumps Present Ur Squamous Epith Cells 6-10 (0-2) /HPF Urine Bacteria 4+ (None Seen) Hyaline Casts 0-2 (0-2) /LPF Influenza Type A (PCR) (Negative) Influenza Type B (PCR) (Negative) RSV RNA Qual (PCR) (Negative) SARS-CoV-2 RNA (RT-PCR) (Negative) Independent Interpretation I performed an independent interpretation of an: EKG and Plain X-Ray Radiology Impression Discussion of test interpretation with radiology: I have reviewed the radiologist's reading. External Record Review External record reviewed: Inpatient record, Office record, Outpatient record, Prior outpatient labs, Prior outpatient radiology, Primary care record and Outside ED record Critical Care Time Critical Care Time Critical Care Time: Yes Total Critical Care Time: 40 Attestation: I attest to this time spent taking care of the patient, obtaining history, physical, reviewing labs, imaging, speaking to my attending, speaking to specialist. Discharge Plan Discharge Clinical Impression: Hypoxia, Pneumonia, Acute UTI, Bandemia Sepsis Qualifiers: Sepsis type: sepsis due to unspecified organism Sepsis acute organ dysfunction status: unspecified Qualified Code(s): A41.9 - Sepsis, unspecified organism Patient Disposition: Admitted As Inpatient
--- NOTE | 2023-04-07 10:17 | ECG_ITS ---
Test Reason : SOB Blood Pressure : / mmHG Vent. Rate : 101 BPM Atrial Rate : 101 BPM P-R Int : 142 ms QRS Dur : 070 ms QT Int : 312 ms P-R-T Axes : 066 022 052 degrees QTc Int : 404 ms Sinus tachycardia with Premature supraventricular complexes Otherwise normal ECG No previous ECGs available Referred By: Luis Patton Electronically Signed By:MAURA KRAUSE
[2023-04-07] MEDS: cefTRIAXone sodium 1 GM in 0.9 % Sodium Chloride 50 ML IV (10:49)
[2023-04-07 11:00] LABS: Lactic Acid 1.4 mmol/L (0.5-2.0)
[2023-04-07 11:04] LABS: Influenza A PCR NEGATIVE (Negative); Influenza B PCR NEGATIVE (Negative); Resp Syncy Virus RNA Qual PCR NEGATIVE (Negative); SARS COV2 PCR INHOUSE NEGATIVE (Negative)
[2023-04-07 11:07] LABS: Hemoglobin 10.1 g/dl (12.0-16.0); Mean Corpuscular HGB Conc 31.6 g/dl (31.0-35.0); Mean Corpuscular Volume 104.6 fL (80.0-98.0); Mean Platelet Volume 11.7 fL (9.4-12.3); PLT CLUMP 1; Red Blood Count 3.06 X10*6/uL (4.20-5.50); Red Cell Distribution Width 17.6 % (11.0-16.0)
--- NOTE | 2023-04-07 11:19 | PM.IMHP ---
History of Present Illness Date of Service: 04/07/23 Attending physician on admission: Chung Schwartz Chief Complaint: SOB, fatigue Pt is an 88-year-old female with a PMH significant for HTN, hypothyroidism, anemia of chronic disease, CKD 3, MDD, and with colostomy in place who presents to the ED from [facility] for evaluation of cough, SOB, and weakness. Pt is confused at baseline and unaware of her PMH and thus not a great historian. Pt tested positive influenza on 03/01/2023 and treated with Tamiflu. Unclear when patient is symptoms started, but she currently complains of shortness of breath, difficulty breathing, weakness, and nonproductive cough. She does not carry a diagnosis of COPD or asthma, and is not on home O2. Admits to smoking in her 30s, but quit over 50 years ago. Denies chest pain/pressure, palpitations. No fever or chills. Denies nausea, vomiting, diarrhea, abdominal pain. Patient states she does not ambulate on her own, but gets around the facility in a wheelchair at baseline. In the ED pt was tachycardic up to 104, tachypnic up to 24 during exam, had soft BP 130/1, and was satting as low as 85% on RA. Labs were significant for bandemia of 19%, H&H of 10.1/32.0, BUN 50, creatinine 2.82, at albumin 2.9. UA positive for UTI. Tested negative for influenza type a and B, RSV, COVID. CXR showed focal radial opacity involving right upper lobes suggesting infectious/inflammatory etiology with bronchial thickening. EKG demonstrated sinus tachycardia of 101 with premature supraventricular complexes with no evidence of ST elevations or depressions. Pt was treated with IVF, ceftriaxone, and azithromycin. Pt will be admitted to the hospital for acute hypoxic respiratory failure in the setting of nosocomial acquired pneumonia with sepsis. Review of Systems Review of Systems: Shortness of breath, difficulty breathing Cough Weakness, fatigue Denies fever, chills, nausea, vomiting, abdominal pain No chest pain/pressure, palpitations [facility] Medical History (Updated 04/07/23 @ 12:45 by BETTINA Roberts) MDD (major depressive disorder) Anemia Hypothyroidism Essential (primary) hypertension CKD stage 3 due to type 1 diabetes mellitus Social History Alcohol intake: never Advance Directives: Yes Advance Directives on File: Yes Advance Directives Date on File: 07/20/22 Meds Allergies Allergy/AdvReac Type Severity Reaction Status Date / Time Sulfa (Sulfonamide Allergy Unknown UNKNOWN Unverified 10/24/19 16:06 Antibiotics) [SULFA (SULFONAMIDE ANTIBIOTICS)] Active Medications: Current Medications Azithromycin 500 mg/ Sodium (Chloride) 250 mls @ 125 mls/hr IV ONCE ONE Stop: 04/07/23 12:20 Sodium Chloride (Ns) 1,968 mls @ 1,968 mls/hr 30 ml/kg infuse over 1 hr (1968 ml) IV .Q1H STA Stop: 04/07/23 11:21 Last Admin: 04/07/23 10:58 Dose: 1,968 mls/hr Home Medications Medication Instructions Recorded Confirmed Last Taken Type acetaminophen 325 mg tablet 650 mg PO Q4H PRN temp/pain 04/07/23 04/07/23 Unknown History albuterol sulfate 90 mcg/actuation 1 inh inhalation Q4H PRN Shortness 04/07/23 04/07/23 Unknown History aerosol inhaler Of Breath Or Wheezing aluminum-mag hydroxide-simethicone 30 ml PO Q4H PRN gi distress 04/07/23 04/07/23 Unknown History 200 mg-200 mg-20 mg/5 mL oral susp (Mintox) amlodipine 2.5 mg tablet 2.5 mg PO DAILY 04/07/23 04/07/23 Unknown History buspirone 5 mg tablet 5 mg PO TID 04/07/23 04/07/23 Unknown History calcium carbonate 500 mg calcium 500 mg PO BID 04/07/23 04/07/23 Unknown History (1,250 mg) chewable tablet (Calcium 500) cholecalciferol (vitamin D3) 10 20 mcg PO DAILY 04/07/23 04/07/23 Unknown History mcg (400 unit) tablet erythromycin 5 mg/gram (0.5 %) eye 0.25 inch ophthalmic (eye) DAILY 04/07/23 04/07/23 Unknown History ointment PRN affected eyelids ferrous sulfate 325 mg (65 mg 325 mg PO BID 04/07/23 04/07/23 Unknown History iron) tablet,delayed release fluticasone propionate 110 2 puff inhalation BID 04/07/23 04/07/23 Unknown History mcg/actuation HFA aerosol inhaler guaifenesin 100 mg/5 mL oral liquid 200 mg PO Q4H PRN Cough 04/07/23 04/07/23 Unknown History levothyroxine 88 mcg tablet 88 mcg PO DAILY@0600 04/07/23 04/07/23 Unknown History loratadine 10 mg tablet 10 mg PO DAILY 04/07/23 04/07/23 Unknown History magnesium hydroxide 400 mg/5 mL 30 ml PO DAILY PRN Constipation 04/07/23 04/07/23 Unknown History oral suspension (Milk of Magnesia) omeprazole 20 mg capsule,delayed 20 mg PO DAILY@0630 04/07/23 04/07/23 Unknown History release polyvinyl alcohol 1.4 % eye drops 1 drp ophthalmic (eye) BID 04/07/23 04/07/23 Unknown History (Artificial Tears (polyvinyl alcohol)) risperidone 0.5 mg tablet 0.5 mg PO BID 04/07/23 04/07/23 Unknown History simethicone 125 mg chewable tablet 125 mg PO TID 04/07/23 04/07/23 Unknown History Physical Exam Vital Signs and Narrative: Vital Signs: Last Vital Signs Temp 97.8 F 04/07/23 09:42 Pulse 104 H 04/07/23 09:42 Resp 16 04/07/23 09:42 BP 130/51 L 04/07/23 09:42 Pulse Ox 95 04/07/23 09:42 O2 Del Method Room Air 04/07/23 09:42 BMI result Body Mass Index 26.4 Constitutional: Alert, pleasantly confused, in no acute distress. Mental Status: Oriented to person and place, but not to time or fully to situation. Eyes: Pupils are equal, round, and reactive to light. Ear, Nose, and Throat: Oropharynx clear, mucous membranes moist. Ears and nose without deformities. Trachea midline. Respiratory: Expiratory right-sided rhonc. Cardiovascular: S1, S2 regular. No murmurs, rubs, or gallops. Gastrointestinal: Abdomen soft, non-tender, non-distended. Normal bowel sounds. Ostomy in place. Neurologic: Cranial nerves II-XII are grossly intact bilaterally. No focal neurological deficits. Moves all extremities spontaneously. Skin: Warm, dry. Musculoskeletal: No cyanosis or clubbing. Extremities: No edema. Psychiatric: Pleasantly confused. Results Labs 04/07/23 10:48 04/07/23 11:01 Labs: Laboratory Results - last 24 hr 04/07/23 04/07/23 04/07/23 10:11 10:30 10:48 MCV 104.6 H MCH 33.0 MCHC 31.6 RDW 17.6 H MPV 11.7 Immature Gran % (Auto) Cancelled Neut % (Auto) Cancelled Lymph % (Auto) Cancelled [place] % (Auto) Cancelled Eos % (Auto) Cancelled Baso % (Auto) Cancelled Lymph # (Auto) Cancelled [place] # (Auto) Cancelled Eos # (Auto) Cancelled Baso # (Auto) Cancelled Abs Immat Gran (auto) Cancelled Absolute Neuts (auto) Cancelled Absolute Nucleated RBC 0.000 Nucleated RBC % (auto) 0.0 Lactic Acid 1.4 Influenza Type A (PCR) NEGATIVE Influenza Type B (PCR) NEGATIVE RSV RNA Qual (PCR) NEGATIVE SARS-CoV-2 RNA (RT-PCR) NEGATIVE Assessment and Plan (1) Pneumonia: Status: Acute (2) Hypoxia: Status: Acute Plan Pt is an 88-year-old female with a PMH significant for HTN, hypothyroidism, anemia of chronic disease, CKD 3, MDD, and with colostomy in place who presents to the ED from [facility] for evaluation of cough, SOB, and weakness. Pt will be admitted to the hospital for acute hypoxic respiratory failure in the setting of nosocomial acquired pneumonia with sepsis. Acute hypoxic respiratory failure in the setting of nosocomial pneumonia Patient previously diagnosed with influenza on 04/01/2023, treated with Tamiflu Has been experiencing increased SOB, weakness/fatigue, cough for unspecified of time Desatting to mid 80s on RA, not on home O2 CXR showing significant right focal radiopacity Pt a resident of [facility] Pt meet sepsis criteria: Tachycardic, tachypnea, bandemia; lactic acid WNL 1.4 Patient given IVF and started on broad-spectrum antibiotics in ED Will treat with vanc and Zosyn, started 04/07/2023 DuoNebs p.r.n. Titrate supplemental O2 >92, wean as tolerated Monitor respiratory status MELLO in setting of CKD 3 Patient's creatinine 2.82, up from 1.95 on 03/11/2021 Likely secondary to dehydration from decreased p.o. intake Patient received IVF in ED Will place on maintenance fluids for now Follow BMP HTN BP a little soft, hold amlodipine for now Resume as warranted Hypothyroidism Continue levothyroxine Mood disorder Continue home meds GERD Continue PPI DNR/DNI, confirmed with documentation from rest home Attending:?Dr. Schwartz DVT Prophylaxis: Heparin Pt will require a hospitalization of at least two nights for treatment of?acute hypoxic respiratory failure in the setting nosocomial acquired pneumonia. The patient hospitalization for administration of IV antibiotics, IV fluids, supplemental oxygen, and close monitoring of labs and respiratory status. Quality Stroke Does the patient have a stroke diagnosis?: No VTE Prior VTE?: No VTE Risk Level:: Medical - moderate - high VTE Device Contraindication: Treatment Not Indicated VTE Drug Contraindication: N/A - Med Ordered
[2023-04-07 11:21] LABS: Appearance Urine Turbid; Color Urine Dark Yellow; Glucose Urine UA Negative (Negative); Leukocyte Esterase Urine Large (3+) (Negative); Nitrite Urine Negative (Negative); PH 5.5 (5.0-9.0); Specific Gravity - Urine 1.015 (1.005-1.025); UMIC TRIGGER UACC YES; Urine Blood Large (3+) (Negative); Urine Ketones Negative (Negative); Urine Protein 100 (2+) mg/dL (Neg-Trace)
[2023-04-07] MEDS: Azithromycin 500 MG in 0.9 % Sodium Chloride 250 ML 125 MG IV (11:24)
[2023-04-07 11:29] LABS: Band Neutrophils Percent 19 % (3-5); Lymphocytes Percent Manual 16 % (20-40); Metamyelocytes Percent 2 %; Monocytes Percent Manual 7 % (2-11); Neutrophils Percent Manual 56 % (45-73)
[2023-04-07 11:31] LABS: Acanthocytes 3+ (>5) /OIF; RBC Morphology NOTED
[2023-04-07 11:33] LABS: Macrocytosis 1+ (5-14) /OIF; Schistocytes 1+ (0-2) /OIF
[2023-04-07 11:34] LABS: Toxic Vacuolation PRESENT
[2023-04-07 11:35] LABS: Bacteria Urine 4+ (None Seen); Hyaline Casts Urine 0-2 /LPF (0-2); RBC Urine >20 /HPF (0-2); UACC Culture Trigger YES; WBC Clumps Urine Present; WBC Urine >50 /HPF (0-5)
[2023-04-07 11:35] LABS: Platelet Estimate NORMAL (NORMAL)
[2023-04-07 11:37] LABS: Platelet Morphology Comment NORMAL
[2023-04-07 11:38] LABS: Lymphocytes Absolute Manual 1.2 X10*3/uL (1.2-4.9); Metamyelocytes Absolute 0.1 X10*3/uL; Monocytes Absolute Manual 0.5 X10*3/uL (0.1-1.2); Neutrophils Absolute Manual 5.4 X10*3/uL (2.0-8.3); Platelet Count 192 X10*3/uL (160-400); White Blood Count 7.2 X10*3/uL (4.8-10.8)
[2023-04-07 11:49] LABS: Alanine Aminotransferase 10 U/L (0-31); Albumin Level 2.9 g/dL (3.5-5.0); Alkaline Phosphatase 68 U/L (39-117); Anion Gap 13 (12-20); Aspartate Amino Transferase 18 U/L (5-31); Bilirubin Total 0.6 mg/dL (0.0-1.0); Blood Urea Nitrogen 50 mg/dL (9-16); Calcium 9.3 mg/dL (8.4-10.2); Carbon Dioxide 17 mmol/L (22-29); Chloride 110 mmol/L (96-108); Creatinine Clr Calc Pharmacy 12.4; Estimated Glomerular Filt Rate 16; Glucose Random 147 mg/dL (60-115); Magnesium 1.6 mg/dL (1.6-2.6); Sodium 135 mmol/L (135-145); Total Protein 7.1 g/dL (6.5-8.0)
--- NOTE | 2023-04-07 12:57 | PC.NURSE ---
patient colostomy bag changed by this RN, new colostomy dressing is dry and intact
--- NOTE | 2023-04-07 13:03 | PHA.MEDREC ---
Pharmacy Consult ? Medication Reconciliation Pharmacy has completed the medication reconciliation.Med rec complete, completed from facility list.
[2023-04-07] MEDS: vancomycin HCL 1,500 MG in 0.9 % Sodium Chloride 500 ML 333.33 MG IV (13:52)
[2023-04-07] MEDS: Heparin Sodium,Porcine 5,000 UNIT/ML VIAL 5000 UNIT SUBCUT ×2 (13:52→23:40)
[2023-04-07] MEDS: guaiFENesin DM 200/20/10 ML 10 ML SYRUP PO (14:10)
[2023-04-07] MEDS: Simethicone 80 MG TAB.CHEW PO ×2 (16:01→20:24)
[2023-04-07] MEDS: busPIRone HCl 5 MG TABLET PO ×2 (16:02→20:25)
[2023-04-07] MEDS: Piperacillin Sodium/Tazobactam 2.25 GM in 0.9 % Sodium Chloride 50 ML IV ×2 (17:21→22:49)
--- NOTE | 2023-04-07 18:37 | HO.SKINPHOTO ---
Pt arrived to unit from ED with bilateral groin fungal rash, sit cleansed with NaCl, dried, then protective cream applied. Right arm has skin tare present and bruising. Skin Tare cleansed with NaCl, dried, xeroform, gauze, then gauze wrap applied. Wound care nurse consult ordered.
[2023-04-07] MEDS: 0.9 % Sodium Chloride 1,000 ML 100 ML IVCONT (19:35)
[2023-04-07] MEDS: Ferrous Sulfate 324 MG TABLET.DR PO (20:25)
[2023-04-07] MEDS: risperiDONE 0.5 MG TABLET PO (20:25)
[2023-04-08 02:53] VITALS: BP 126/87; PULSE 95; RESP 20; TEMP 36.2; O2SAT 94
--- NOTE | 2023-04-08 04:16 | PC.NURSE ---
Lab called with critical blood cultures 1/2 sets gram + cocci in clusters. notified no new orders at this time pt already on IV zosyn and IV vanco.
[2023-04-08] MEDS: Levothyroxine Sodium 88 MCG TABLET PO (05:08)
[2023-04-08] MEDS: Omeprazole 20 MG CAPSULE.DR PO (05:08)
[2023-04-08] MEDS: Piperacillin Sodium/Tazobactam 2.25 GM in 0.9 % Sodium Chloride 50 ML IV (05:16)
[2023-04-08] MEDS: 0.9 % Sodium Chloride 1,000 ML 100 ML IVCONT (05:18)
[2023-04-08 06:48] VITALS: BP 146/66; PULSE 94; RESP 20; TEMP 36.1; O2SAT 90
[2023-04-08 06:51] LABS: Hematocrit 28.6 % (37.0-47.0); Mean Corpuscular HGB Conc 31.5 g/dl (31.0-35.0); Mean Corpuscular Hemoglobin 33.7 pg (27.0-33.0); Mean Corpuscular Volume 107.1 fL (80.0-98.0); Mean Platelet Volume 12.1 fL (9.4-12.3); Platelet Count 142 X10*3/uL (160-400); Red Blood Count 2.67 X10*6/uL (4.20-5.50); Red Cell Distribution Width 18.1 % (11.0-16.0); White Blood Count 4.4 X10*3/uL (4.8-10.8)
[2023-04-08 07:10] LABS: Anion Gap 13 (12-20); Blood Urea Nitrogen 41 mg/dL (9-16); Calcium 8.7 mg/dL (8.4-10.2); Carbon Dioxide 14 mmol/L (22-29); Chloride 119 mmol/L (96-108); Creatinine Clr Calc Pharmacy 17.4; Estimated Glomerular Filt Rate 23; Glucose Random 126 mg/dL (60-115); Potassium 4.7 mmol/L (3.3-5.1); Sodium 141 mmol/L (135-145)
[2023-04-08] MEDS: Cholecalciferol (Vitamin D3) 10 MCG TABLET 20 MCG PO (07:49)
[2023-04-08] MEDS: Loratadine 10 MG TABLET PO (07:49)
[2023-04-08] MEDS: Simethicone 80 MG TAB.CHEW PO ×3 (07:49→20:06)
[2023-04-08] MEDS: risperiDONE 0.5 MG TABLET PO ×2 (07:49→20:05)
[2023-04-08] MEDS: busPIRone HCl 5 MG TABLET PO ×3 (07:49→20:06)
[2023-04-08] MEDS: Ferrous Sulfate 324 MG TABLET.DR PO ×2 (07:49→20:06)
[2023-04-08 07:56] VITALS: PULSE 97; RESP 20; O2SAT 92
[2023-04-08] MEDS: Fluticasone Propionate 100 MCG BLST.W.DEV 2 PUFF INHALE ×2 (07:56→19:13)
--- NOTE | 2023-04-08 11:18 | MHC.CM.PN ---
pt from [facility] where she is expected to return when ready for dc pts hcp yared manriquez let message [phone]
[2023-04-08 12:42] LABS: Vancomycin Random 15.2 mcg/mL (15-20)
--- NOTE | 2023-04-08 13:08 | HO.PM.IMPN ---
Subjective Subjective Date of Service: 04/08/23 Interval History: No acute issues overnight. Unable to gain IV access at this time Review of Systems Denies chest pain Admits shortness of breath that has improved Denies nausea vomiting diarrhea Denies fever chills Physical Exam Vital Signs: Vital Signs: Last Vital Signs Temp 97 F 04/08/23 06:48 Pulse 97 04/08/23 07:56 Resp 20 04/08/23 07:56 BP 146/66 H 04/08/23 06:48 Pulse Ox 90 L 04/08/23 06:48 O2 Del Method Nasal Cannula 04/08/23 06:48 O2 Flow Rate 2 04/08/23 06:48 BMI result Body Mass Index 26.6 Const: Other: Awake alert no acute distress Resp: Other: Rhonchorous upper lobes with scattered expiratory wheezes. Aeration to bases Cardio: Other: No S4; positive S1-S2; no S3 murmurs rubs or gallops GI: Other: Soft nontender nondistended normoactive bowel sounds Extrem: Other: No edema bilateral Objective Data Active Medications Acetaminophen (Acetaminophen 325 Mg Tablet) 650 mg PO Q6H PRN PRN Reason: Pain, Mild (Pain Scale 1-3) Al Hydroxide/Mg Hydroxide (Magnesium Hydrox/Alum Hydrox 30 Ml Oral.Susp) 30 ml PO Q4H PRN PRN Reason: gi distress Albuterol Sulfate (Albuterol Sulfate 90 Mcg 8 Gm Inhaler) 1 puff INHALE Q4H PRN PRN Reason: Shortness Of Breath Or Wheezing Albuterol/Ipratropium (Albuterol/Iprat 2.5/0.5mg 3 Ml Ampul.Neb) 3 ml INHALE RQ4H WHILE AWAKE PRN PRN Reason: Shortness of Breath/Wheezing Amoxicillin/Clavulanate Potassium (Amoxicillin/Potassium Clav 875 Mg Tablet) 875 mg PO Q12H [facility] Artificial Tears (Artificial Tears 15 Ml Drops) 1 drop EYE-BOTH BID [facility] Last Admin: 04/08/23 07:58 Dose: Not Given Documented By: RAJANI Non-Admin Reason: Med Not Available Buspirone HCl (Buspirone Hcl 5 Mg Tablet) 5 mg PO TID [facility] Last Admin: 04/08/23 07:49 Dose: 5 mg Documented By: RAJANI Calcium Carbonate (Calcium Carbonate 500 Mg Tablet) 500 mg PO BID [facility] Last Admin: 04/08/23 07:49 Dose: 500 mg Documented By: RAJANI Docusate Sodium (Docusate Sodium 100 Mg Capsule) 100 mg PO DAILY PRN PRN Reason: Constipation Doxycycline Monohydrate (Doxycycline Monohydrate 100 Mg Capsule) 100 mg PO Q12H [facility] Ferrous Sulfate (Ferrous Sulfate 324 Mg Tablet.) 324 mg PO BID [facility] Last Admin: 04/08/23 07:49 Dose: 324 mg Documented By: RAJANI Fluticasone Propionate (Fluticasone Propionate 100 Mcg Blst.W.Artemio) 2 puff INHALE BID [facility] Last Admin: 04/08/23 07:56 Dose: 2 puff Documented By: NKECHI Guaifenesin/Dextromethorphan (Guaifenesin Dm 200/20/10 Ml 10 Ml Syrup) 10 ml PO Q4H PRN PRN Reason: Cough Last Admin: 04/07/23 14:10 Dose: 10 ml Documented By: KATHRYN Heparin Sodium (Porcine) (Heparin Sodium,Porcine 5,000 Unit/Ml Vial) 5,000 unit SUBCUT Q12H [facility] Last Admin: 04/08/23 12:29 Dose: Not Given Documented By: RAJANI Non-Admin Reason: Physician Approved Sodium Chloride (Ns) 1,000 mls @ 100 mls/hr IVCONT .Q10H [facility] Last Admin: 04/08/23 09:19 Dose: Not Given Documented By: RAJANI Non-Admin Reason: Physician Approved Levothyroxine Sodium (Levothyroxine Sodium 88 Mcg Tablet) 88 mcg PO DAILY@0600 [facility] Last Admin: 04/08/23 05:08 Dose: 88 mcg Documented By: INDIO Loratadine (Loratadine 10 Mg Tablet) 10 mg PO DAILY [facility] Last Admin: 04/08/23 07:49 Dose: 10 mg Documented By: RAJANI Magnesium Hydroxide (Milk Of Magnesia 30 Ml Oral.Susp) 30 ml PO DAILY PRN PRN Reason: Constipation Melatonin (Melatonin 3 Mg Tablet) 6 mg PO BEDTIME PRN PRN Reason: Insomnia Omeprazole (Omeprazole 20 Mg Capsule.) 20 mg PO DAILY@0630 [facility] Last Admin: 04/08/23 05:08 Dose: 20 mg Documented By: INDIO Ondansetron HCl (Ondansetron Hcl 4 Mg/2 Ml Vial) 4 mg IVPUSH Q8H PRN PRN Reason: Nausea and Vomiting Pharmacy Consult (Consult Rx Vancomycin Dosing) 1 each MISCELLANE DAILY PRN PRN Reason: Consult order Prednisone (Prednisone 10 Mg Tablet) 50 mg PO DAILY [facility] Stop: 04/10/23 09:01 Risperidone (Risperidone 0.5 Mg Tablet) 0.5 mg PO BID [facility] Last Admin: 04/08/23 07:49 Dose: 0.5 mg Documented By: RAJANI Simethicone (Simethicone 80 Mg Tab.Chew) 80 mg PO TID [facility] Last Admin: 04/08/23 07:49 Dose: 80 mg Documented By: RAJANI Sodium Chloride (0.9 % Sodium Chloride Flush 3 Ml Syringe) 3 ml IVFLUSH QSHIFT [facility] Last Admin: 04/08/23 07:14 Dose: Not Given Documented By: RAJANI Non-Admin Reason: IV Running Vitamin D (Cholecalciferol (Vitamin D3) 10 Mcg Tablet) 20 mcg PO DAILY [facility] Last Admin: 04/08/23 07:49 Dose: 20 mcg Documented By: RAJANI Labs 04/08/23 05:38 04/08/23 05:38 Labs: Laboratory Results - last 24 hr 04/07/23 04/08/23 04/08/23 10:48 05:38 12:11 MCV 104.6 H 107.1 H MCH 33.0 33.7 H MCHC 31.6 31.5 RDW 17.6 H 18.1 H Plt Count 192 D 142 L D MPV 11.7 12.1 Immature Gran % (Auto) Cancelled Neut % (Auto) Cancelled Lymph % (Auto) Cancelled [place] % (Auto) Cancelled Eos % (Auto) Cancelled Baso % (Auto) Cancelled Lymph # (Auto) Cancelled [place] # (Auto) Cancelled Eos # (Auto) Cancelled Baso # (Auto) Cancelled Abs Immat Gran (auto) Cancelled Absolute Neuts (auto) Cancelled Absolute Nucleated RBC 0.000 0.000 Nucleated RBC % (auto) 0.0 0.0 Neutrophils % (Manual) 56 Band Neutrophils % 19 H Lymphocytes % (Manual) 16 L Monocytes % (Manual) 7 Metamyelocytes % 2 Abs Neuts (Manual) 5.4 Lymphocytes # (Manual) 1.2 Monocytes # (Manual) 0.5 Metamyelocytes # 0.1 Toxic Vacuolation PRESENT Platelet Estimate NORMAL Plt Morphology Comment NORMAL RBC Morphology NOTED Macrocytosis 1+ (5-14) Acanthocytes (Spur) 3+ (>5) Schistocytes 1+ (0-2) Anion Gap 13 Estim Creat Clear Calc 17.4 Estimated GFR 23 Random Glucose 126 H Calcium 8.7 D Random Vancomycin 15.2 Microbiology Microbiology Results: Microbiology 04/07/23 10:47 Blood Culture - Preliminary Blood - Venous No growth after 24 hours. 04/07/23 Unknown Urine Culture - Preliminary Urine clean catch - Urine rios top Gram negative amarilys 04/07/23 10:30 Blood Culture - Preliminary Blood - Venous Prelim: GPC Gram Stain only Assessment and Plan (1) Pneumonia: Status: Acute (2) Hypoxia: Status: Acute Plan Pt is an 88-year-old female with a PMH significant for HTN, hypothyroidism, anemia of chronic disease, CKD 3, MDD, and with colostomy in place who presents to the ED from [facility] for evaluation of cough, SOB, and weakness. Pt will be admitted to the hospital for acute hypoxic respiratory failure in the setting of nosocomial acquired pneumonia with sepsis. Multiple attempts failed for IV access 1.Acute hypoxic respiratory failure in the setting of nosocomial pneumonia Patient hemodynamically stable and sats acceptable on nasal O2. Given multiple failures of IV attempts will treat with oral Augmentin and doxycycline along with prednisone taper and follow clinically. Do not believe patient warrants central line -Augmentin/doxycycline (1) -prednisone taper; 50 mg daily for 3, 40 mg daily for 3, 30 mg for 3, 20 mg 3, 10 mg 3 -titrate O2 as tolerated to maintain sats greater than equal to 92% 2.MELLO in setting of CKD 3 Responding to volume repletion. Given no IV access will encourage p.o. -follow renals/divalents 3.HTN -acceptable control on current therapies -adjust as indicated 4.Hypothyroidism -Continue levothyroxine DNR/DNI, Heparin Patient will require ongoing hospitalization despite p.o. antibiotics to monitor progression given inability of IV access. Patient is at high risk of outpatient therapies; she has also a resident of a [facility] Stroke Does the patient have a stroke diagnosis?: No VTE Prior VTE?: No VTE Risk Level:: Medical - moderate - high VTE Device Contraindication: Treatment Not Indicated VTE Drug Contraindication: N/A - Med Ordered
[2023-04-08] MEDS: predniSONE 10 MG TABLET 50 MG PO (13:54)
[2023-04-08] MEDS: Amoxicillin/Potassium Clav 875 MG TABLET PO (13:56)
[2023-04-08] MEDS: Doxycycline Monohydrate 100 MG CAPSULE PO (13:56)
[2023-04-08 15:15] VITALS: BP 141/62; PULSE 107; RESP 17; TEMP 36.2; O2SAT 95
[2023-04-08 19:13] VITALS: PULSE 97; RESP 17; O2SAT 93
[2023-04-08 20:00] VITALS: BP 143/59; PULSE 104; RESP 17; TEMP 36.1; O2SAT 94
[2023-04-09] VITALS (8 sets, daily range): BP systolic 132–148; BP diastolic 60–68; PULSE 92–101; RESP 17–20; TEMP 36–36.6; O2SAT 91–97
[2023-04-09] MEDS: Amoxicillin/Potassium Clav 875 MG TABLET PO (00:31)
[2023-04-09] MEDS: Doxycycline Monohydrate 100 MG CAPSULE PO (00:31)
[2023-04-09] MEDS: Heparin Sodium,Porcine 5,000 UNIT/ML VIAL 5000 UNIT SUBCUT ×3 (00:31→23:20)
[2023-04-09] MEDS: Omeprazole 20 MG CAPSULE.DR PO (05:55)
[2023-04-09] MEDS: Levothyroxine Sodium 88 MCG TABLET PO (05:55)
[2023-04-09 05:58] LABS: Anion Gap 10 (12-20); Blood Urea Nitrogen 46 mg/dL (9-16); Calcium 9.2 mg/dL (8.4-10.2); Carbon Dioxide 16 mmol/L (22-29); Chloride 121 mmol/L (96-108); Creatinine Clr Calc Pharmacy 18.5; Estimated Glomerular Filt Rate 25; Glucose Random 194 mg/dL (60-115); Potassium 4.1 mmol/L (3.3-5.1); Sodium 143 mmol/L (135-145)
[2023-04-09] MEDS: Albuterol/Iprat 2.5/0.5MG 3 ML AMPUL.NEB INHALE ×2 (06:09→20:12)
[2023-04-09] MEDS: Fluticasone Propionate 100 MCG BLST.W.DEV 2 PUFF INHALE ×2 (08:04→19:45)
--- NOTE | 2023-04-09 10:09 | PC.NURSE ---
pt complaint of difficulty breathing, checked oxygen saturation 89 on 3L NC. Oxygen increased to 5L NC, saturation increased to 90%. Dr Schwartz made aware. RT made aware. Per RT patient placed on 60% aerosol mask. Rechecked oxygen saturation 95%. Dr Schwartz at bedside.
--- NOTE | 2023-04-09 11:39 | HO.PM.IMPN ---
Subjective Subjective Date of Service: 04/09/23 Interval History: Worsening respiratory distress this a.m.. Not able to expectorate sputum. Increase in O2 requirement. Review of Systems Denies chest pain Admit shortness of breath/productive cough Denies nausea vomiting diarrhea Denies fever chills Physical Exam Vital Signs: Vital Signs: Last Vital Signs Temp 98 F 04/09/23 06:48 Pulse 92 04/09/23 08:37 Resp 20 04/09/23 08:37 BP 132/60 04/09/23 06:48 Pulse Ox 94 04/09/23 06:48 O2 Del Method Nasal Cannula 04/09/23 06:48 O2 Flow Rate 2 04/09/23 06:48 BMI result Body Mass Index 26.6 Const: Other: Awake alert no acute distress Resp: Other: Rhonchorous upper lobes with scattered expiratory wheezes. Aeration to bases Cardio: Other: No S4; positive S1-S2; no S3 murmurs rubs or gallops GI: Other: Soft nontender nondistended normoactive bowel sounds Extrem: Other: No edema bilateral Objective Data Active Medications Acetaminophen (Acetaminophen 325 Mg Tablet) 650 mg PO Q6H PRN PRN Reason: Pain, Mild (Pain Scale 1-3) Al Hydroxide/Mg Hydroxide (Magnesium Hydrox/Alum Hydrox 30 Ml Oral.Susp) 30 ml PO Q4H PRN PRN Reason: gi distress Albuterol Sulfate (Albuterol Sulfate 90 Mcg 8 Gm Inhaler) 1 puff INHALE Q4H PRN PRN Reason: Shortness Of Breath Or Wheezing Albuterol/Ipratropium (Albuterol/Iprat 2.5/0.5mg 3 Ml Ampul.Neb) 3 ml INHALE RQ4H WHILE AWAKE PRN PRN Reason: Shortness of Breath/Wheezing Last Admin: 04/09/23 06:09 Dose: 3 ml Documented By: BRIAN Artificial Tears (Artificial Tears 15 Ml Drops) 1 drop EYE-BOTH BID [facility] Last Admin: 04/09/23 10:07 Dose: Not Given Documented By: RAJANI Non-Admin Reason: Med Not Available Buspirone HCl (Buspirone Hcl 5 Mg Tablet) 5 mg PO TID [facility] Last Admin: 04/09/23 10:07 Dose: Not Given Documented By: RAJANI Non-Admin Reason: Patient Refused Calcium Carbonate (Calcium Carbonate 500 Mg Tablet) 500 mg PO BID [facility] Last Admin: 04/09/23 10:07 Dose: Not Given Documented By: RAJANI Non-Admin Reason: Patient Refused Docusate Sodium (Docusate Sodium 100 Mg Capsule) 100 mg PO DAILY PRN PRN Reason: Constipation Ferrous Sulfate (Ferrous Sulfate 324 Mg Tablet.Dr) 324 mg PO BID [facility] Last Admin: 04/09/23 10:07 Dose: Not Given Documented By: RAJANI Non-Admin Reason: Patient Refused Fluticasone Propionate (Fluticasone Propionate 100 Mcg Blst.W.Dev) 2 puff INHALE BID [facility] Last Admin: 04/09/23 08:04 Dose: 2 puff Documented By: NKECHI Guaifenesin/Dextromethorphan (Guaifenesin Dm 200/20/10 Ml 10 Ml Syrup) 10 ml PO Q4H PRN PRN Reason: Cough Last Admin: 04/07/23 14:10 Dose: 10 ml Documented By: KATHRYN Heparin Sodium (Porcine) (Heparin Sodium,Porcine 5,000 Unit/Ml Vial) 5,000 unit SUBCUT Q12H [facility] Last Admin: 04/09/23 00:31 Dose: 5,000 unit Documented By: INDIO Sodium Chloride (Ns) 1,000 mls @ 100 mls/hr IVCONT .Q10H [facility] Last Admin: 04/09/23 04:39 Dose: Not Given Documented By: INDIO Non-Admin Reason: No Access Piperacillin Sod/Tazobactam (Sod 2.25 gm/ Sodium Chloride) 50 mls @ 100 mls/hr IV Q6H [facility] Vancomycin HCl 500 mg/ Sodium (Chloride) 260 mls @ 270 mls/hr IV Q24H [facility] Levothyroxine Sodium (Levothyroxine Sodium 88 Mcg Tablet) 88 mcg PO DAILY@0600 [facility] Last Admin: 04/09/23 05:36 Dose: Not Given Documented By: INDIO Non-Admin Reason: Patient Refused Loratadine (Loratadine 10 Mg Tablet) 10 mg PO DAILY [facility] Last Admin: 04/09/23 10:07 Dose: Not Given Documented By: RAJANI Non-Admin Reason: Patient Refused Magnesium Hydroxide (Milk Of Magnesia 30 Ml Oral.Susp) 30 ml PO DAILY PRN PRN Reason: Constipation Melatonin (Melatonin 3 Mg Tablet) 6 mg PO BEDTIME PRN PRN Reason: Insomnia Methylprednisolone Sodium Succinate (Methylprednisolone Sod Succ 125 Mg/2 Ml Vial) 60 mg IVPUSH Q6H [facility] Omeprazole (Omeprazole 20 Mg Capsule.Dr) 20 mg PO DAILY@0630 [facility] Last Admin: 04/09/23 05:36 Dose: Not Given Documented By: INDIO Non-Admin Reason: Patient Refused Ondansetron HCl (Ondansetron Hcl 4 Mg/2 Ml Vial) 4 mg IVPUSH Q8H PRN PRN Reason: Nausea and Vomiting Pharmacy Consult (Consult Rx Vancomycin Dosing) 1 each MISCELLANE DAILY PRN PRN Reason: Consult order Pharmacy Consult (Consult Rx Vancomycin Dosing) 1 each MISCELLANE DAILY PRN PRN Reason: Consult order Prednisone (Prednisone 10 Mg Tablet) 50 mg PO DAILY [facility] Stop: 04/10/23 09:01 Last Admin: 04/09/23 10:07 Dose: Not Given Documented By: RAJANI Non-Admin Reason: Physician Approved Risperidone (Risperidone 0.5 Mg Tablet) 0.5 mg PO BID [facility] Last Admin: 04/09/23 10:07 Dose: Not Given Documented By: RAJANI Non-Admin Reason: Patient Refused Simethicone (Simethicone 80 Mg Tab.Chew) 80 mg PO TID [facility] Last Admin: 04/09/23 10:07 Dose: Not Given Documented By: RAJANI Non-Admin Reason: Patient Refused Sodium Chloride (0.9 % Sodium Chloride Flush 3 Ml Syringe) 3 ml IVFLUSH QSHIFT [facility] Last Admin: 04/09/23 07:18 Dose: Not Given Documented By: RAJANI Non-Admin Reason: No Access Vitamin D (Cholecalciferol (Vitamin D3) 10 Mcg Tablet) 20 mcg PO DAILY [facility] Last Admin: 04/09/23 10:07 Dose: Not Given Documented By: RAJANI Non-Admin Reason: Patient Refused Labs 04/08/23 05:38 04/09/23 05:14 Labs: Laboratory Results - last 24 hr 04/08/23 04/09/23 12:11 05:14 Hold Purple Top SEE NOTE Anion Gap 10 L Estim Creat Clear Calc 18.5 Estimated GFR 25 Random Glucose 194 H Calcium 9.2 Random Vancomycin 15.2 Microbiology Microbiology Results: Microbiology 04/07/23 10:30 Blood Culture - Preliminary Blood - Venous Staphylococcus aureus 04/07/23 Unknown Urine Culture - Final Urine clean catch - Urine rios top Escherichia coli 04/07/23 10:47 Blood Culture - Preliminary Blood - Venous No growth after 24 hours. Assessment and Plan (1) Pneumonia: Status: Acute (2) Hypoxia: Status: Acute (3) Sepsis: Status: Acute Plan Pt is an 88-year-old female with a PMH significant for HTN, hypothyroidism, anemia of chronic disease, CKD 3, MDD, and with colostomy in place who presents to the ED from [facility] for evaluation of cough, SOB, and weakness. Pt will be admitted to the hospital for acute hypoxic respiratory failure in the setting of nosocomial acquired pneumonia with sepsis. Multiple attempts failed for IV access 1.Acute hypoxic respiratory failure in the setting of nosocomial pneumonia Patient became acutely short of breath this a.m. with an increase in O2 requirements. Deep nasal suctioning by respiratory failed to produce any improvement. Placed on aerosol with good results thus far. Maintaining sats. IV access gained this morning -restart vancomycin/Zosyn (2) -switch to methylprednisolone 60 mg IV q.6 -titrate O2 as tolerated to maintain sats greater than equal to 92% 2.MELLO in setting of CKD 3 Responding to volume repletion. Given no IV access will encourage p.o. -follow renals/divalents 3.HTN -acceptable control on current therapies -adjust as indicated 4.Hypothyroidism -Continue levothyroxine DNR/DNI, Heparin Discussed with both daughters; updated on mother's condition. They will be kept updated are in agreement with the current plan of action Patient will require ongoing hospitalization for IV antibiotics and increased need for supplemental O2. Quality Stroke Does the patient have a stroke diagnosis?: No VTE Prior VTE?: No VTE Risk Level:: Medical - moderate - high VTE Device Contraindication: Treatment Not Indicated VTE Drug Contraindication: N/A - Med Ordered
[2023-04-09] MEDS: Piperacillin Sodium/Tazobactam 2.25 GM in 0.9 % Sodium Chloride 50 ML IV ×3 (11:47→23:19)
[2023-04-09] MEDS: methylPREDNISolone Sod Succ 125 MG/2 ML VIAL 60 MG IVPUSH ×3 (11:47→23:19)
[2023-04-09 12:26] LABS: Vancomycin Random 11.5 mcg/mL (15-20)
--- NOTE | 2023-04-09 12:57 | PHA.PROG ---
Admission Date/Time: April 07, 2023 12:06 Indication: Resp Infection Weight in k.9 kg Adjusted body weight in K.9 kg [place] body weight in K.1 kg Obesity Dosing Indication % IBW: Serum Creatinine - Last 168 Hours 04/07/23 04/08/23 04/09/23 11:01 05:38 05:14 Creatinine 2.82 H 2.02 H 1.90 H Estimated CrCl and GFR - Last 168 Hours 04/07/23 04/08/23 04/09/23 11:01 05:38 05:14 Estim Creat Clear Calc 12.4 17.4 18.5 Estimated GFR 16 23 25 Vancomycin Loading Dose: 1500 mg Current Vancomycin Dosing Regimen: 500 mg Q24H Date and Time for next Vancomycin Level to be drawn: 04/10 @ 1100 Pharmacist Comments on Vancomycin Plan: Patient being restart on vancomycin patient received an adequate load dose on 04/06 @ 1352. Patient then got a random level 24 hours after load dose that came back at 15.2. Vancomycin order was then canceled. Vancomycin consult was re-ordered today. Since patient had a therapeutic level yesterday, ordered a random level stat to see if patient needs to be re-load or if start maintenance dose now. Level is therapeutic at 11.5. Maintenance dose vancomycin 500 mg Q24H is scheduled to start 04/08 @ 1300. Predicted AUC is 441 with a trough of 15.2 Level will be drawn prior to the 3rd maintenance dose Pharmacy will monitor renal function daily. Renal function has been imporving daily, therefore dose may need to be adjusted prior to random level on 04/08 Suzanne Livingston PharmD Vancomycin dosing will take advantage of [employer] as a clinical decision support tool that uses Bayesian modeling to calculate individual patient's pharmacokinetic parameters and forecast the patient's drug concentration time course with the target goal AUC 24 range of 400 - 600 mg/L/hr.
[2023-04-09] MEDS: vancomycin HCL 500 MG in 0.9 % Sodium Chloride 100 ML 110 MG IV (13:43)
[2023-04-09] MEDS: busPIRone HCl 5 MG TABLET PO ×2 (15:12→20:02)
[2023-04-09] MEDS: Simethicone 80 MG TAB.CHEW PO ×2 (15:12→20:01)
[2023-04-09] MEDS: 0.9 % Sodium Chloride Flush 3 ML SYRINGE IVFLUSH ×2 (15:14→23:26)
[2023-04-09] MEDS: risperiDONE 0.5 MG TABLET PO (20:01)
[2023-04-09] MEDS: Acetaminophen 325 MG TABLET 650 MG PO (20:01)
[2023-04-09] MEDS: Melatonin 3 MG TABLET 6 MG PO (20:01)
[2023-04-09] MEDS: Ferrous Sulfate 324 MG TABLET.DR PO (20:02)
[2023-04-09] MEDS: 0.9 % Sodium Chloride 1,000 ML 100 ML IVCONT (23:20)
[2023-04-10 03:19] VITALS: BP 140/58; PULSE 95; RESP 16; TEMP 36; O2SAT 97
[2023-04-10] MEDS: methylPREDNISolone Sod Succ 125 MG/2 ML VIAL 60 MG IVPUSH ×4 (05:29→23:52)
[2023-04-10] MEDS: Piperacillin Sodium/Tazobactam 2.25 GM in 0.9 % Sodium Chloride 50 ML IV ×4 (05:29→23:56)
[2023-04-10 07:39] VITALS: BP 107/79; PULSE 103; RESP 16; TEMP 37; O2SAT 92
[2023-04-10] MEDS: Fluticasone Propionate 100 MCG BLST.W.DEV 2 PUFF INHALE ×2 (08:02→19:50)
[2023-04-10 08:05] VITALS: PULSE 98; RESP 16; O2SAT 94
[2023-04-10] MEDS: 0.9 % Sodium Chloride Flush 3 ML SYRINGE IVFLUSH ×3 (09:02→23:53)
[2023-04-10] MEDS: risperiDONE 0.5 MG TABLET PO ×2 (09:03→20:00)
[2023-04-10] MEDS: Ferrous Sulfate 324 MG TABLET.DR PO ×2 (09:03→20:01)
[2023-04-10] MEDS: Loratadine 10 MG TABLET PO (09:03)
[2023-04-10] MEDS: busPIRone HCl 5 MG TABLET PO ×3 (09:03→20:00)
[2023-04-10] MEDS: Simethicone 80 MG TAB.CHEW PO ×3 (09:03→20:00)
[2023-04-10] MEDS: Cholecalciferol (Vitamin D3) 10 MCG TABLET 20 MCG PO (09:03)
[2023-04-10] MEDS: predniSONE 10 MG TABLET 50 MG PO (09:03)
[2023-04-10] MEDS: guaiFENesin DM 200/20/10 ML 10 ML SYRUP PO (09:16)
[2023-04-10 09:32] LABS: Anion Gap 12 (12-20); Blood Urea Nitrogen 47 mg/dL (9-16); Calcium 9.7 mg/dL (8.4-10.2); Carbon Dioxide 14 mmol/L (22-29); Chloride 118 mmol/L (96-108); Creatinine Clr Calc Pharmacy 21.1; Estimated Glomerular Filt Rate 29; Glucose Random 176 mg/dL (60-115); Potassium 4.4 mmol/L (3.3-5.1); Sodium 140 mmol/L (135-145)
[2023-04-10] MEDS: Heparin Sodium,Porcine 5,000 UNIT/ML VIAL 5000 UNIT SUBCUT ×2 (11:30→23:55)
--- NOTE | 2023-04-10 13:20 | MHC.CM.PN ---
Per MD rounds no discharge today. Patient continues to require supplemental oxygen. Her requirements have increased. DP return to [facility]. A PT eval will be needed prior to discharge.
--- NOTE | 2023-04-10 13:58 | HO.PM.IMPN ---
Subjective Subjective Date of Service: 04/10/23 Interval History: Improved overnight. Conversant however confused but easily reoriented Review of Systems Denies chest pain Admit shortness of breath/productive cough Denies nausea vomiting diarrhea Denies fever chills Physical Exam Vital Signs: Vital Signs: Last Vital Signs Temp 98.6 F 04/10/23 07:39 Pulse 98 04/10/23 08:05 Resp 16 04/10/23 08:05 BP 107/79 04/10/23 07:39 Pulse Ox 92 04/10/23 07:39 O2 Del Method Nasal Cannula 04/10/23 07:39 O2 Flow Rate 2 04/10/23 07:39 FiO2 40 04/09/23 15:06 BMI result Body Mass Index 26.6 Const: Other: Awake alert no acute distress Resp: Other: Rhonchorous upper lobes with scattered expiratory wheezes. Aeration to bases Cardio: Other: No S4; positive S1-S2; no S3 murmurs rubs or gallops GI: Other: Soft nontender nondistended normoactive bowel sounds Extrem: Other: No edema bilateral Objective Data Active Medications Acetaminophen (Acetaminophen 325 Mg Tablet) 650 mg PO Q6H PRN PRN Reason: Pain, Mild (Pain Scale 1-3) Last Admin: 04/09/23 20:01 Dose: 650 mg Documented By: RENATO Al Hydroxide/Mg Hydroxide (Magnesium Hydrox/Alum Hydrox 30 Ml Oral.Susp) 30 ml PO Q4H PRN PRN Reason: gi distress Albuterol Sulfate (Albuterol Sulfate 90 Mcg 8 Gm Inhaler) 1 puff INHALE Q4H PRN PRN Reason: Shortness Of Breath Or Wheezing Albuterol/Ipratropium (Albuterol/Iprat 2.5/0.5mg 3 Ml Ampul.Neb) 3 ml INHALE RQ4H WHILE AWAKE PRN PRN Reason: Shortness of Breath/Wheezing Last Admin: 04/09/23 20:12 Dose: 3 ml Documented By: JOHN Artificial Tears (Artificial Tears 15 Ml Drops) 1 drop EYE-BOTH BID [facility] Last Admin: 04/10/23 11:28 Dose: Not Given Documented By: BETSEY Non-Admin Reason: Med Not Available Buspirone HCl (Buspirone Hcl 5 Mg Tablet) 5 mg PO TID [facility] Last Admin: 04/10/23 09:03 Dose: 5 mg Documented By: BETSEY Calcium Carbonate (Calcium Carbonate 500 Mg Tablet) 500 mg PO BID [facility] Last Admin: 04/10/23 09:03 Dose: 500 mg Documented By: BETSEY Docusate Sodium (Docusate Sodium 100 Mg Capsule) 100 mg PO DAILY PRN PRN Reason: Constipation Ferrous Sulfate (Ferrous Sulfate 324 Mg Tablet.Dr) 324 mg PO BID [facility] Last Admin: 04/10/23 09:03 Dose: 324 mg Documented By: BETSEY Fluticasone Propionate (Fluticasone Propionate 100 Mcg Blst.W.Dev) 2 puff INHALE BID [facility] Last Admin: 04/10/23 08:02 Dose: 2 puff Documented By: WENDI Guaifenesin/Dextromethorphan (Guaifenesin Dm 200/20/10 Ml 10 Ml Syrup) 10 ml PO Q4H PRN PRN Reason: Cough Last Admin: 04/10/23 09:16 Dose: 10 ml Documented By: BETSEY Heparin Sodium (Porcine) (Heparin Sodium,Porcine 5,000 Unit/Ml Vial) 5,000 unit SUBCUT Q12H [facility] Last Admin: 04/10/23 11:30 Dose: 5,000 unit Documented By: BETSEY Piperacillin Sod/Tazobactam (Sod 2.25 gm/ Sodium Chloride) 50 mls @ 100 mls/hr IV Q6H [facility] Last Infusion: 04/10/23 12:07 Dose: Infused Documented By: BETSEY Vancomycin HCl 500 mg/ Sodium (Chloride) 110 mls @ 110 mls/hr IV Q24H [facility] Last Infusion: 04/09/23 15:00 Dose: Infused Documented By: RAJANI Levothyroxine Sodium (Levothyroxine Sodium 88 Mcg Tablet) 88 mcg PO DAILY@0600 [facility] Last Admin: 04/10/23 05:33 Dose: Not Given Documented By: COTEMA Non-Admin Reason: Patient Refused Loratadine (Loratadine 10 Mg Tablet) 10 mg PO DAILY [facility] Last Admin: 04/10/23 09:03 Dose: 10 mg Documented By: BETSEY Magnesium Hydroxide (Milk Of Magnesia 30 Ml Oral.Susp) 30 ml PO DAILY PRN PRN Reason: Constipation Melatonin (Melatonin 3 Mg Tablet) 6 mg PO BEDTIME PRN PRN Reason: Insomnia Last Admin: 04/09/23 20:01 Dose: 6 mg Documented By: RENATO Methylprednisolone Sodium Succinate (Methylprednisolone Sod Succ 125 Mg/2 Ml Vial) 60 mg IVPUSH Q6H [facility] Last Admin: 04/10/23 11:27 Dose: 60 mg Documented By: BETSEY Omeprazole (Omeprazole 20 Mg Capsule.Dr) 20 mg PO DAILY@0630 [facility] Last Admin: 04/10/23 05:33 Dose: Not Given Documented By: COTEMA Non-Admin Reason: Patient Refused Ondansetron HCl (Ondansetron Hcl 4 Mg/2 Ml Vial) 4 mg IVPUSH Q8H PRN PRN Reason: Nausea and Vomiting Pharmacy Consult (Consult Rx Vancomycin Dosing) 1 each MISCELLANE DAILY PRN PRN Reason: Consult order Risperidone (Risperidone 0.5 Mg Tablet) 0.5 mg PO BID [facility] Last Admin: 04/10/23 09:03 Dose: 0.5 mg Documented By: BETSEY Simethicone (Simethicone 80 Mg Tab.Chew) 80 mg PO TID [facility] Last Admin: 04/10/23 09:03 Dose: 80 mg Documented By: BETSEY Sodium Chloride (0.9 % Sodium Chloride Flush 3 Ml Syringe) 3 ml IVFLUSH QSHIFT [facility] Last Admin: 04/10/23 09:02 Dose: 3 ml Documented By: BETSEY Vitamin D (Cholecalciferol (Vitamin D3) 10 Mcg Tablet) 20 mcg PO DAILY [facility] Last Admin: 04/10/23 09:03 Dose: 20 mcg Documented By: BETSEY Labs 04/08/23 05:38 04/10/23 08:53 Labs: Laboratory Results - last 24 hr 04/07/23 04/10/23 10:48 08:53 MCV 104.6 H MCH 33.0 MCHC 31.6 RDW 17.6 H Plt Count 192 D MPV 11.7 Immature Gran % (Auto) Cancelled Neut % (Auto) Cancelled Lymph % (Auto) Cancelled [place] % (Auto) Cancelled Eos % (Auto) Cancelled Baso % (Auto) Cancelled Lymph # (Auto) Cancelled [place] # (Auto) Cancelled Eos # (Auto) Cancelled Baso # (Auto) Cancelled Abs Immat Gran (auto) Cancelled Absolute Neuts (auto) Cancelled Absolute Nucleated RBC 0.000 Nucleated RBC % (auto) 0.0 Neutrophils % (Manual) 56 Band Neutrophils % 19 H Lymphocytes % (Manual) 16 L Monocytes % (Manual) 7 Metamyelocytes % 2 Abs Neuts (Manual) 5.4 Lymphocytes # (Manual) 1.2 Monocytes # (Manual) 0.5 Metamyelocytes # 0.1 Toxic Vacuolation PRESENT Platelet Estimate NORMAL Plt Morphology Comment NORMAL RBC Morphology NOTED Macrocytosis 1+ (5-14) Acanthocytes (Spur) 3+ (>5) Schistocytes 1+ (0-2) Hold Purple Top SEE NOTE Anion Gap 12 Estim Creat Clear Calc 21.1 Estimated GFR 29 Random Glucose 176 H Calcium 9.7 Microbiology Microbiology Results: Microbiology 04/07/23 10:30 Blood Culture - Final Blood - Venous Staphylococcus aureus 04/07/23 10:47 Blood Culture - Preliminary Blood - Venous No growth after 48 hours. Assessment and Plan (1) Pneumonia: Status: Acute Plan Pt is an 88-year-old female with a PMH significant for HTN, hypothyroidism, anemia of chronic disease, CKD 3, MDD, and with colostomy in place who presents to the ED from [facility] for evaluation of cough, SOB, and weakness. Pt will be admitted to the hospital for acute hypoxic respiratory failure in the setting of nosocomial acquired pneumonia with sepsis. Multiple attempts failed for IV access 1.Acute hypoxic respiratory failure in the setting of nosocomial pneumonia Markedly improved last 24 hours. Remains tolerant of therapies -vancomycin/Zosyn (3) -switch to methylprednisolone 60 mg IV q.6 -titrate O2 as tolerated to maintain sats greater than equal to 92% 2.MELLO in setting of CKD 3 Responding to volume repletion. Given no IV access will encourage p.o. -follow renals/divalents 3.HTN -acceptable control on current therapies -adjust as indicated 4.Hypothyroidism -Continue levothyroxine DNR/DNI, Heparin Discussed with both daughters; updated on mother's condition. They will be kept updated are in agreement with the current plan of action Patient will require ongoing hospitalization for IV antibiotics and increased need for supplemental O2. Quality Stroke Does the patient have a stroke diagnosis?: No VTE Prior VTE?: No VTE Risk Level:: Medical - moderate - high VTE Device Contraindication: Treatment Not Indicated VTE Drug Contraindication: N/A - Med Ordered
[2023-04-10] MEDS: vancomycin HCL 500 MG in 0.9 % Sodium Chloride 100 ML 110 MG IV (14:14)
[2023-04-10 15:08] VITALS: BP 132/70; PULSE 98; RESP 16; TEMP 36.4; O2SAT 96
--- NOTE | 2023-04-10 15:30 | HO.WOUND ---
Wound Consult: Initial 88yr old? F admitted to [facility] on 04/07/23 - See progress notes and H&P for detailed history.? Wound consult placed for Right Arm Skin tear.? Patient agreeable to wound assessment. Right upper arm Etiology: ??Skin Tear Wound Bed: partial thickness tissue loss no flap noted Drainage / Odor: unknown Edges: ? irregular Marilyn wound: ? No Induration, Fluctuance or Warmth noted - significant bruising noted Goals of Treatment: ? 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 Recommendations: 1. Turn and Reposition every 2 hours and as needed for patient comfort.? Use pillows or wedges to support off loading positions. 2. Off Load all bony prominences with use of pillows and heel boots if needed.? Apply Preventative foams where needed. ? 3. Monitor for incontinence and moisture control, use barrier creams when needed for prevention and treatment. 4. Provide adequate and supplemental nutrition.? 5. Order or Continue low air loss mattress. 6. Right Upper Arm - Cleanse with normal saline, pat dry. ?Apply double layer Xeroform secure with Abd pads, gauze wrap and tape. ?Do not apply tape to patients skin.? Avoid Adhesive application to skin - when necessary, apply skin prep prior.? Re-consult wound care Nurse for wound deterioration or wound changes.
[2023-04-10 19:34] VITALS: BP 144/77; PULSE 100; RESP 16; TEMP 36.4; O2SAT 93
[2023-04-10 19:50] VITALS: PULSE 100; RESP 16; O2SAT 93
[2023-04-11] VITALS (7 sets, daily range): BP systolic 143–162; BP diastolic 70–74; PULSE 79–116; RESP 15–20; TEMP 36–36.3; O2SAT 90–98
[2023-04-11] MEDS: methylPREDNISolone Sod Succ 125 MG/2 ML VIAL 60 MG IVPUSH ×4 (05:38→23:45)
[2023-04-11] MEDS: Piperacillin Sodium/Tazobactam 2.25 GM in 0.9 % Sodium Chloride 50 ML IV ×4 (05:40→23:44)
[2023-04-11] MEDS: Omeprazole 20 MG CAPSULE.DR PO (05:48)
[2023-04-11] MEDS: Levothyroxine Sodium 88 MCG TABLET PO (05:48)
[2023-04-11 06:36] LABS: Creatinine Clr Calc Pharmacy 20.6; Estimated Glomerular Filt Rate 28
[2023-04-11] MEDS: risperiDONE 0.5 MG TABLET PO ×3 (08:21→19:56)
[2023-04-11] MEDS: Cholecalciferol (Vitamin D3) 10 MCG TABLET 20 MCG PO (08:21)
[2023-04-11] MEDS: Ferrous Sulfate 324 MG TABLET.DR PO ×2 (08:21→19:55)
[2023-04-11] MEDS: busPIRone HCl 5 MG TABLET PO ×3 (08:21→19:56)
[2023-04-11] MEDS: Simethicone 80 MG TAB.CHEW PO ×3 (08:22→19:55)
[2023-04-11] MEDS: 0.9 % Sodium Chloride Flush 3 ML SYRINGE IVFLUSH ×3 (08:22→19:56)
[2023-04-11] MEDS: Loratadine 10 MG TABLET PO (08:22)
[2023-04-11] MEDS: guaiFENesin DM 200/20/10 ML 10 ML SYRUP PO (08:30)
[2023-04-11] MEDS: Acetaminophen 325 MG TABLET 650 MG PO ×2 (08:30→17:44)
[2023-04-11] MEDS: Fluticasone Propionate 100 MCG BLST.W.DEV 2 PUFF INHALE ×2 (08:32→19:52)
[2023-04-11] MEDS: Heparin Sodium,Porcine 5,000 UNIT/ML VIAL 5000 UNIT SUBCUT ×2 (11:15→23:45)
[2023-04-11 12:57] LABS: Vancomycin Random 17.3 mcg/mL (15-20)
--- NOTE | 2023-04-11 13:05 | HE.PHANOTE ---
[facility] Patients level came back this afternoon at 17.3. Given the decrease in scr 1.9 to 1.71 today. I will keep dose as it is and get a level tomorrow at 1200. Did not want to decrease dose to 250 mg Q24H and risk patient going subtherapeutic.
--- NOTE | 2023-04-11 13:16 | MHC.CM.PN ---
PT mitch recommends STR. [facility]air [facility] is following for improvement. They have concerns that she may need LTC. An updated referral was sent to [facility] at family request. DP STR via BLS.
[2023-04-11] MEDS: vancomycin HCL 500 MG in 0.9 % Sodium Chloride 100 ML 110 MG IV (14:11)
--- NOTE | 2023-04-11 16:32 | P.PNIM_ITS ---
Subjective Subjective Date of Service: 04/11/23 Interval History: Conversant however confused Review of Systems no fever or chest pain or sob Physical Exam 2 Vital Signs: Vital Signs: Last Vital Signs Temp 96.8 F 04/11/23 15:03 Pulse 99 04/11/23 15:03 Resp 15 04/11/23 15:03 BP 148/72 H 04/11/23 15:03 Pulse Ox 94 04/11/23 15:03 O2 Del Method Room Air 04/11/23 15:03 O2 Flow Rate 2 04/11/23 08:00 FiO2 40 04/09/23 15:06 BMI result Body Mass Index 26.6 Appearance: awake ,confused . cvs: [id number], [id number] , no murmur res: clear to auscultation ,no rhonchii or wheezing abd: no rebound or guarding ,nt, bs present. ext pulses present , no cyanosis. neuro: nonfocal. Objective Data Active Medications Acetaminophen (Acetaminophen 325 Mg Tablet) 650 mg PO Q6H PRN PRN Reason: Pain, Mild (Pain Scale 1-3) Last Admin: 04/11/23 08:30 Dose: 650 mg Documented By: BETSEY Al Hydroxide/Mg Hydroxide (Magnesium Hydrox/Alum Hydrox 30 Ml Oral.Susp) 30 ml PO Q4H PRN PRN Reason: gi distress Albuterol Sulfate (Albuterol Sulfate 90 Mcg 8 Gm Inhaler) 1 puff INHALE Q4H PRN PRN Reason: Shortness Of Breath Or Wheezing Albuterol/Ipratropium (Albuterol/Iprat 2.5/0.5mg 3 Ml Ampul.Neb) 3 ml INHALE RQ4H WHILE AWAKE PRN PRN Reason: Shortness of Breath/Wheezing Last Admin: 04/09/23 20:12 Dose: 3 ml Documented By: JOHN Artificial Tears (Artificial Tears 15 Ml Drops) 1 drop EYE-BOTH BID [facility] Last Admin: 04/11/23 08:33 Dose: Not Given Documented By: BETSEY Non-Admin Reason: Med Not Available Buspirone HCl (Buspirone Hcl 5 Mg Tablet) 5 mg PO TID [facility] Last Admin: 04/11/23 14:11 Dose: 5 mg Documented By: BETSEY Calcium Carbonate (Calcium Carbonate 500 Mg Tablet) 500 mg PO BID [facility] Last Admin: 04/11/23 08:22 Dose: 500 mg Documented By: BETSEY Docusate Sodium (Docusate Sodium 100 Mg Capsule) 100 mg PO DAILY PRN PRN Reason: Constipation Ferrous Sulfate (Ferrous Sulfate 324 Mg Tablet.Dr) 324 mg PO BID [facility] Last Admin: 04/11/23 08:21 Dose: 324 mg Documented By: BETSEY Fluticasone Propionate (Fluticasone Propionate 100 Mcg Blst.W.Dev) 2 puff INHALE BID [facility] Last Admin: 04/11/23 08:32 Dose: 2 puff Documented By: YUE Guaifenesin/Dextromethorphan (Guaifenesin Dm 200/20/10 Ml 10 Ml Syrup) 10 ml PO Q4H PRN PRN Reason: Cough Last Admin: 04/11/23 08:30 Dose: 10 ml Documented By: BETSEY Heparin Sodium (Porcine) (Heparin Sodium,Porcine 5,000 Unit/Ml Vial) 5,000 unit SUBCUT Q12H [facility] Last Admin: 04/11/23 11:15 Dose: 5,000 unit Documented By: BETSEY Piperacillin Sod/Tazobactam (Sod 2.25 gm/ Sodium Chloride) 50 mls @ 100 mls/hr IV Q6H [facility] Last Infusion: 04/11/23 12:13 Dose: Infused Documented By: BETSEY Vancomycin HCl 500 mg/ Sodium (Chloride) 110 mls @ 110 mls/hr IV Q24H [facility] Last Admin: 04/11/23 14:11 Dose: 110 mls/hr Documented By: BETSEY Levothyroxine Sodium (Levothyroxine Sodium 88 Mcg Tablet) 88 mcg PO DAILY@0600 [facility] Last Admin: 04/11/23 05:48 Dose: 88 mcg Documented By: BARTOLOME Loratadine (Loratadine 10 Mg Tablet) 10 mg PO DAILY [facility] Last Admin: 04/11/23 08:22 Dose: 10 mg Documented By: BETSEY Magnesium Hydroxide (Milk Of Magnesia 30 Ml Oral.Susp) 30 ml PO DAILY PRN PRN Reason: Constipation Melatonin (Melatonin 3 Mg Tablet) 6 mg PO BEDTIME PRN PRN Reason: Insomnia Last Admin: 04/09/23 20:01 Dose: 6 mg Documented By: COTEMA Methylprednisolone Sodium Succinate (Methylprednisolone Sod Succ 125 Mg/2 Ml Vial) 60 mg IVPUSH Q6H [facility] Last Admin: 04/11/23 11:17 Dose: 60 mg Documented By: BETSEY Omeprazole (Omeprazole 20 Mg Capsule.) 20 mg PO DAILY@0630 [facility] Last Admin: 04/11/23 05:48 Dose: 20 mg Documented By: BARTOLOME Ondansetron HCl (Ondansetron Hcl 4 Mg/2 Ml Vial) 4 mg IVPUSH Q8H PRN PRN Reason: Nausea and Vomiting Pharmacy Consult (Consult Rx Vancomycin Dosing) 1 each MISCELLANE DAILY PRN PRN Reason: Consult order Risperidone (Risperidone 0.5 Mg Tablet) 0.5 mg PO BID [facility] Last Admin: 04/11/23 08:21 Dose: 0.5 mg Documented By: BETSEY Simethicone (Simethicone 80 Mg Tab.Chew) 80 mg PO TID [facility] Last Admin: 04/11/23 14:11 Dose: 80 mg Documented By: BETSEY Sodium Chloride (0.9 % Sodium Chloride Flush 3 Ml Syringe) 3 ml IVFLUSH QSHIFT [facility] Last Admin: 04/11/23 14:11 Dose: 3 ml Documented By: BETSEY Vitamin D (Cholecalciferol (Vitamin D3) 10 Mcg Tablet) 20 mcg PO DAILY [facility] Last Admin: 04/11/23 08:21 Dose: 20 mcg Documented By: BETSEY Labs 04/08/23 05:38 04/11/23 05:10 Labs: Laboratory Results - last 24 hr 04/11/23 04/11/23 05:10 12:05 Hold Purple Top SEE NOTE Estim Creat Clear Calc 20.6 Estimated GFR 28 Random Vancomycin 17.3 Assessment and Plan (1) Hypoxia: Status: Acute Plan 88-year-old female with a PMH significant for HTN, hypothyroidism, anemia of chronic disease, CKD 3, MDD, and with colostomy in place who presents to the ED from [facility] for evaluation of cough, SOB, and weakness. Pt will be admitted to the hospital for acute hypoxic respiratory failure in the setting of nosocomial acquired pneumonia with sepsis. Multiple attempts failed for IV access 1.Acute hypoxic respiratory failure in the setting of nosocomial pneumonia Markedly improved last 24 hours. Remains tolerant of therapies -vancomycin/Zosyn (4) -switch to methylprednisolone 60 mg IV q.6 -titrate O2 as tolerated to maintain sats greater than equal to 92% 2.MELLO in setting of CKD 3 Responding to volume repletion. Given no IV access will encourage p.o. -follow renals/divalents 3.HTN -acceptable control on current therapies -adjust as indicated 4.Hypothyroidism -Continue levothyroxine DNR/DNI, Heparin Patient will require ongoing hospitalization for IV antibiotics and increased need for supplemental O2. d/win detail with both gustabo at bedside. Quality Stroke Does the patient have a stroke diagnosis?: No VTE Prior VTE?: No VTE Risk Level:: Medical - moderate - high VTE Device Contraindication: Treatment Not Indicated VTE Drug Contraindication: N/A - Med Ordered
--- NOTE | 2023-04-11 18:39 | PC.NURSE ---
Pt not taking in much at meals. Staff assisted to eat. Fluids encouraged
[2023-04-11] MEDS: Melatonin 3 MG TABLET 6 MG PO (23:44)
[2023-04-12] VITALS (7 sets, daily range): BP systolic 147–168; BP diastolic 70–80; PULSE 90–102; RESP 14–20; TEMP 35.7–36.4; O2SAT 93–99
[2023-04-12] MEDS: Levothyroxine Sodium 88 MCG TABLET PO (05:37)
[2023-04-12] MEDS: Omeprazole 20 MG CAPSULE.DR PO (05:37)
[2023-04-12] MEDS: Piperacillin Sodium/Tazobactam 2.25 GM in 0.9 % Sodium Chloride 50 ML IV ×3 (05:37→17:59)
[2023-04-12] MEDS: methylPREDNISolone Sod Succ 125 MG/2 ML VIAL 60 MG IVPUSH (05:37)
[2023-04-12] MEDS: guaiFENesin DM 200/20/10 ML 10 ML SYRUP PO (05:47)
[2023-04-12] MEDS: Fluticasone Propionate 100 MCG BLST.W.DEV 2 PUFF INHALE ×2 (08:34→19:51)
[2023-04-12 08:41] LABS: Estimated Glomerular Filt Rate 27
[2023-04-12 08:42] LABS: Anion Gap 11 (12-20)
[2023-04-12 08:45] LABS: Blood Urea Nitrogen 62 mg/dL (9-16); Calcium 9.4 mg/dL (8.4-10.2); Carbon Dioxide 17 mmol/L (22-29); Chloride 121 mmol/L (96-108); Glucose Random 207 mg/dL (60-115); Potassium 4.1 mmol/L (3.3-5.1); Sodium 145 mmol/L (135-145)
[2023-04-12 09:04] LABS: Hematocrit 26.9 % (37.0-47.0); Hemoglobin 8.8 g/dl (12.0-16.0); Mean Corpuscular HGB Conc 32.7 g/dl (31.0-35.0); Mean Corpuscular Volume 100.7 fL (80.0-98.0); Mean Platelet Volume 12.5 fL (9.4-12.3); Platelet Count 123 X10*3/uL (160-400); Red Blood Count 2.67 X10*6/uL (4.20-5.50); Red Cell Distribution Width 18.7 % (11.0-16.0)
[2023-04-12] MEDS: 0.9 % Sodium Chloride Flush 3 ML SYRINGE IVFLUSH ×3 (09:41→20:13)
[2023-04-12] MEDS: methylPREDNISolone Sod Succ 125 MG/2 ML VIAL 40 MG IVPUSH (09:43)
[2023-04-12] MEDS: busPIRone HCl 5 MG TABLET PO ×3 (09:46→20:13)
[2023-04-12] MEDS: Cholecalciferol (Vitamin D3) 10 MCG TABLET 20 MCG PO (09:46)
[2023-04-12] MEDS: Ferrous Sulfate 324 MG TABLET.DR PO (09:46)
[2023-04-12] MEDS: risperiDONE 0.5 MG TABLET PO ×2 (09:47→20:13)
[2023-04-12] MEDS: Loratadine 10 MG TABLET PO (09:47)
[2023-04-12] MEDS: Acetaminophen 325 MG TABLET 650 MG PO (09:47)
[2023-04-12] MEDS: Simethicone 80 MG TAB.CHEW PO ×3 (09:47→20:13)
[2023-04-12] MEDS: Heparin Sodium,Porcine 5,000 UNIT/ML VIAL 5000 UNIT SUBCUT (12:25)
[2023-04-12 12:42] LABS: Vancomycin Random 18.9 mcg/mL (15-20)
--- NOTE | 2023-04-12 13:02 | HE.PHANOTE ---
[facility] Patients level came back this morning at 18.9. Will continue with 500 mg Q24H but will extend interval. dose will now be given at 1600. next level 04/12 @1400
[2023-04-12 14:25] LABS: MRSA Nasal PCR POSITIVE (Negative); SA Nasal PCR POSITIVE (Negative)
[2023-04-12 14:46] LABS: Adenovirus PCR Not Detected (Not Detect.); Bordetella parapertussis PCR Not Detected (Not Detect.); Bordetella pertussis PCR Not Detected (Not Detect.); Chlamydia pneumoniae PCR Not Detected (Not Detect.); Coronavirus 229E PCR Not Detected (Not Detect.); Coronavirus HKU1 PCR Not Detected (Not Detect.); Coronavirus NL63 PCR Not Detected (Not Detect.); Coronavirus OC43 PCR Not Detected (Not Detect.); Human metapneumovirus PCR Not Detected (Not Detect.); Influenza A PCR Not Detected (Not Detect.); Influenza B PCR Not Detected (Not Detect.); Mycoplasma pneumoniae PCR Not Detected (Not Detect.); Parainfluenza 1 PCR Not Detected (Not Detect.); Parainfluenza 2 PCR Not Detected (Not Detect.); Parainfluenza 3 PCR Not Detected (Not Detect.); Parainfluenza 4 PCR Not Detected (Not Detect.); RSV PCR Not Detected (Not Detect.); Rhino/Enterovirus PCR Not Detected (Not Detect.)
[2023-04-12 14:58] LABS: SARS-CoV-2 PCR Not Detected (Not Detect.)
--- NOTE | 2023-04-12 16:13 | MHC.CM.PN ---
DP STR via BLS. Aldair Red[facility] is following for improvement. Additional referrals have been sent to [facility] and [facility] family [facility]
[2023-04-12] MEDS: vancomycin HCL 500 MG in 0.9 % Sodium Chloride 100 ML 110 MG IV (16:47)
[2023-04-13] MEDS: Acetaminophen 325 MG TABLET 650 MG PO ×2 (00:48→16:18)
[2023-04-13] MEDS: Piperacillin Sodium/Tazobactam 2.25 GM in 0.9 % Sodium Chloride 50 ML IV ×3 (00:48→12:44)
[2023-04-13] MEDS: Melatonin 3 MG TABLET 6 MG PO (00:49)
[2023-04-13] MEDS: Heparin Sodium,Porcine 5,000 UNIT/ML VIAL 5000 UNIT SUBCUT ×2 (00:49→12:45)
[2023-04-13 01:49] VITALS: RESP 16
[2023-04-13 03:09] VITALS: BP 167/70; PULSE 93; RESP 20; TEMP 36.1; O2SAT 100
[2023-04-13] MEDS: Omeprazole 20 MG CAPSULE.DR PO (05:20)
[2023-04-13] MEDS: Levothyroxine Sodium 88 MCG TABLET PO (05:20)
--- NOTE | 2023-04-13 07:04 | PC.NURSE ---
Assumed care of patient at midnight. See shift assessment and EMAR for full details. Handoff report given 06:45 to oncoming RN.
[2023-04-13 07:10] LABS: Estimated Glomerular Filt Rate 30
[2023-04-13 07:25] VITALS: BP 136/86; PULSE 92; RESP 16; TEMP 36.1; O2SAT 97
[2023-04-13 08:09] VITALS: PULSE 79; RESP 18; O2SAT 98
[2023-04-13] MEDS: Fluticasone Propionate 100 MCG BLST.W.DEV 2 PUFF INHALE (08:09)
[2023-04-13] MEDS: 0.9 % Sodium Chloride Flush 3 ML SYRINGE IVFLUSH ×2 (09:09→16:34)
[2023-04-13] MEDS: Ferrous Sulfate 324 MG TABLET.DR PO ×2 (09:10→20:47)
[2023-04-13] MEDS: Loratadine 10 MG TABLET PO (09:10)
[2023-04-13] MEDS: risperiDONE 0.5 MG TABLET PO ×2 (09:10→20:47)
[2023-04-13] MEDS: busPIRone HCl 5 MG TABLET PO ×3 (09:10→20:47)
[2023-04-13] MEDS: Cholecalciferol (Vitamin D3) 10 MCG TABLET 20 MCG PO (09:10)
[2023-04-13] MEDS: Simethicone 80 MG TAB.CHEW PO ×3 (09:10→20:47)
[2023-04-13] MEDS: methylPREDNISolone Sod Succ 125 MG/2 ML VIAL 40 MG IVPUSH (09:10)
--- NOTE | 2023-04-13 13:59 | P.PNIM_ITS ---
Subjective Subjective Date of Service: 04/13/23 Interval History: seems more awake -knows her name and daughter also Review of Systems sob somewhat improving no fevers Physical Exam 2 Vital Signs: Vital Signs: Last Vital Signs Temp 97.0 F 04/13/23 07:25 Pulse 79 04/13/23 08:09 Resp 18 04/13/23 08:09 BP 136/86 04/13/23 07:25 Pulse Ox 97 04/13/23 07:25 O2 Del Method Nasal Cannula 04/13/23 07:25 O2 Flow Rate 2 04/13/23 07:25 FiO2 40 04/09/23 15:06 BMI result Body Mass Index 26.6 Appearance: awake ,confused . cvs: rrr, [id number] , no murmur res: clear to auscultation ,no rhonchii or wheezing abd: no rebound or guarding ,nt, bs present. ext pulses present , no cyanosis. neuro: nonfocal. Objective Data Active Medications Acetaminophen (Acetaminophen 325 Mg Tablet) 650 mg PO Q6H PRN PRN Reason: Pain, Mild (Pain Scale 1-3) Last Admin: 04/13/23 00:48 Dose: 650 mg Documented By: COREY Al Hydroxide/Mg Hydroxide (Magnesium Hydrox/Alum Hydrox 30 Ml Oral.Susp) 30 ml PO Q4H PRN PRN Reason: gi distress Albuterol Sulfate (Albuterol Sulfate 90 Mcg 8 Gm Inhaler) 1 puff INHALE Q4H PRN PRN Reason: Shortness Of Breath Or Wheezing Albuterol/Ipratropium (Albuterol/Iprat 2.5/0.5mg 3 Ml Ampul.Neb) 3 ml INHALE RQ4H WHILE AWAKE PRN PRN Reason: Shortness of Breath/Wheezing Last Admin: 04/09/23 20:12 Dose: 3 ml Documented By: JOHN Artificial Tears (Artificial Tears 15 Ml Drops) 1 drop EYE-BOTH BID [facility] Last Admin: 04/13/23 12:15 Dose: Not Given Documented By: RUTH Non-Admin Reason: Med Not Available Buspirone HCl (Buspirone Hcl 5 Mg Tablet) 5 mg PO TID [facility] Last Admin: 04/13/23 09:10 Dose: 5 mg Documented By: RUTH Calcium Carbonate (Calcium Carbonate 500 Mg Tablet) 500 mg PO BID [facility] Last Admin: 04/13/23 09:10 Dose: 500 mg Documented By: RUTH Docusate Sodium (Docusate Sodium 100 Mg Capsule) 100 mg PO DAILY PRN PRN Reason: Constipation Ferrous Sulfate (Ferrous Sulfate 324 Mg Tablet.) 324 mg PO BID [facility] Last Admin: 04/13/23 09:10 Dose: 324 mg Documented By: RUTH Fluticasone Propionate (Fluticasone Propionate 100 Mcg Blst.W.Dev) 2 puff INHALE BID [facility] Last Admin: 04/13/23 08:09 Dose: 2 puff Documented By: YUE Guaifenesin/Dextromethorphan (Guaifenesin Dm 200/20/10 Ml 10 Ml Syrup) 10 ml PO Q4H PRN PRN Reason: Cough Last Admin: 04/12/23 05:47 Dose: 10 ml Documented By: INDIO Heparin Sodium (Porcine) (Heparin Sodium,Porcine 5,000 Unit/Ml Vial) 5,000 unit SUBCUT Q12H [facility] Last Admin: 04/13/23 12:45 Dose: 5,000 unit Documented By: RUTH Piperacillin Sod/Tazobactam (Sod 2.25 gm/ Sodium Chloride) 50 mls @ 100 mls/hr IV Q6H [facility] Last Admin: 04/13/23 12:44 Dose: 100 mls/hr Documented By: RUTH Vancomycin HCl 500 mg/ Sodium (Chloride) 110 mls @ 110 mls/hr IV Q24H [facility] Last Infusion: 04/12/23 17:59 Dose: Infused Documented By: VALDEZ Levothyroxine Sodium (Levothyroxine Sodium 88 Mcg Tablet) 88 mcg PO DAILY@0600 [facility] Last Admin: 04/13/23 05:20 Dose: 88 mcg Documented By: COREY Loratadine (Loratadine 10 Mg Tablet) 10 mg PO DAILY [facility] Last Admin: 04/13/23 09:10 Dose: 10 mg Documented By: RUTH Magnesium Hydroxide (Milk Of Magnesia 30 Ml Oral.Susp) 30 ml PO DAILY PRN PRN Reason: Constipation Melatonin (Melatonin 3 Mg Tablet) 6 mg PO BEDTIME PRN PRN Reason: Insomnia Last Admin: 04/13/23 00:49 Dose: 6 mg Documented By: COREY Methylprednisolone Sodium Succinate (Methylprednisolone Sod Succ 125 Mg/2 Ml Vial) 40 mg IVPUSH DAILY [facility] Last Admin: 04/13/23 09:10 Dose: 40 mg Documented By: RUTH Omeprazole (Omeprazole 20 Mg Capsule.Dr) 20 mg PO DAILY@0630 [facility] Last Admin: 04/13/23 05:20 Dose: 20 mg Documented By: COREY Ondansetron HCl (Ondansetron Hcl 4 Mg/2 Ml Vial) 4 mg IVPUSH Q8H PRN PRN Reason: Nausea and Vomiting Pharmacy Consult (Consult Rx Vancomycin Dosing) 1 each MISCELLANE DAILY PRN PRN Reason: Consult order Risperidone (Risperidone 0.5 Mg Tablet) 0.5 mg PO BID [facility] Last Admin: 04/13/23 09:10 Dose: 0.5 mg Documented By: RUTH Simethicone (Simethicone 80 Mg Tab.Chew) 80 mg PO TID [facility] Last Admin: 04/13/23 09:10 Dose: 80 mg Documented By: RUTH Sodium Chloride (0.9 % Sodium Chloride Flush 3 Ml Syringe) 3 ml IVFLUSH QSHIFT [facility] Last Admin: 04/13/23 09:09 Dose: 3 ml Documented By: RUTH Vitamin D (Cholecalciferol (Vitamin D3) 10 Mcg Tablet) 20 mcg PO DAILY [facility] Last Admin: 04/13/23 09:10 Dose: 20 mcg Documented By: RUTH Labs 04/12/23 08:00 04/13/23 06:37 Labs: Laboratory Results - last 24 hr 04/12/23 04/13/23 12:59 06:37 Hold Purple Top SEE NOTE Estim Creat Clear Calc 22.0 Estimated GFR 30 Nasal Screen MRSA (PCR) POSITIVE A Nasal S. aureus Screen POSITIVE A Nasal MRSA/S.aureus Interp SEE NOTE Respiratory Panel Singh See Note Adenovirus (Rapid PCR) Not Detected B.pert (TEM-PCR) Not Detected B.parapertussis DNA PCR Not Detected C. pneumoniae DNA (PCR) Not Detected Coronavirus OC43 (PCR) Not Detected Coronavirus HKU1 (PCR) Not Detected Coronavirus 229E (PCR) Not Detected Coronavirus NL63 (PCR) Not Detected Human Metapneumovir PCR Not Detected Influenza A (RT-PCR) Not Detected Influenza B (RT-PCR) Not Detected M. pneumoniae (PCR) Not Detected Parainfluenza 1 (PCR) Not Detected Parainfluenza 2 (PCR) Not Detected Parainfluenza 3 (PCR) Not Detected Parainfluenza 4 (PCR) Not Detected RSV (PCR) Not Detected Entero/Rhino (PCR) Not Detected SARS-CoV-2 RNA (RT-PCR) Not Detected Microbiology Microbiology Results: Microbiology 04/07/23 10:47 Blood Culture - Final Blood - Venous No growth after 5 days. Assessment and Plan (1) Sepsis: Status: Acute (2) Bandemia: Status: Acute Plan 88-year-old female with a PMH significant for HTN, hypothyroidism, anemia of chronic disease, CKD 3, MDD, and with colostomy in place who presents to the ED from [facility] for evaluation of cough, SOB, and weakness. Pt will be admitted to the hospital for acute hypoxic respiratory failure in the setting of nosocomial acquired pneumonia with sepsis. Multiple attempts failed for IV access Acute hypoxic respiratory failure in the setting of nosocomial pneumonia Markedly improved last 24 hours. Remains tolerant of therapies vancomycin/Zosyn (4),methylprednisolone 40 mg IV daily,titrate O2 as tolerated to maintain sats greater than equal to 92% MELLO in setting of CKD 3 Responding to volume repletion. Given no IV access will encourage p.o. -follow renals/divalents HTN-acceptable control on current therapies -adjust as indicated Hypothyroidism-Continue levothyroxine DNR/DNI, Heparin ongoing hospitalization:Acute hypoxic respiratory failure in the setting of nosocomial pneumonia for IV antibiotics -increased need for supplemental O2,d/w in detail with both daughters at bedside. Quality Stroke Does the patient have a stroke diagnosis?: No VTE Prior VTE?: No VTE Risk Level:: Medical - moderate - high VTE Device Contraindication: Treatment Not Indicated VTE Drug Contraindication: N/A - Med Ordered
[2023-04-13 14:27] LABS: Vancomycin Random 17.9 mcg/mL (15-20)
--- NOTE | 2023-04-13 14:47 | HE.PHANOTE ---
Vancomycin addendum level came back at 17.9 Will keep same dose but continue to monitor frequently patient has had changing scr
[2023-04-13 15:11] VITALS: BP 119/60; PULSE 91; RESP 18; TEMP 36.2; O2SAT 98
[2023-04-13] MEDS: Amoxicillin Oral Susp 400 mg/5 mL 75 mL SUSP.RECON 800 MG PO (18:30)
[2023-04-13] MEDS: Doxycycline Monohydrate 100 MG CAPSULE PO (18:42)
--- NOTE | 2023-04-13 19:14 | PC.NURSE ---
Patient's IV infiltrated, hard stick, unable to get periphral line, reported to provider, new orders for PO antibiotics received
[2023-04-13 19:34] VITALS: BP 120/62; PULSE 90; RESP 19; TEMP 36.2; O2SAT 94
[2023-04-13] MEDS: Magnesium Hydrox/Alum Hydrox 30 ML ORAL.SUSP PO (21:48)
[2023-04-14] VITALS (7 sets, daily range): BP systolic 138–158; BP diastolic 65–80; PULSE 82–91; RESP 16–22; TEMP 36.1–36.9; O2SAT 94–99
[2023-04-14] MEDS: Heparin Sodium,Porcine 5,000 UNIT/ML VIAL 5000 UNIT SUBCUT ×2 (00:02→11:15)
[2023-04-14] MEDS: Melatonin 3 MG TABLET 6 MG PO (01:09)
[2023-04-14] MEDS: Acetaminophen 325 MG TABLET 650 MG PO (03:59)
[2023-04-14] MEDS: Omeprazole 20 MG CAPSULE.DR PO (05:59)
[2023-04-14] MEDS: Doxycycline Monohydrate 100 MG CAPSULE PO ×2 (05:59→18:30)
[2023-04-14] MEDS: Levothyroxine Sodium 88 MCG TABLET PO (05:59)
[2023-04-14] MEDS: Amoxicillin Oral Susp 400 mg/5 mL 75 mL SUSP.RECON 800 MG PO ×2 (06:00→20:00)
[2023-04-14 06:07] LABS: Creatinine Clr Calc Pharmacy 23.6; Estimated Glomerular Filt Rate 33
[2023-04-14] MEDS: Cholecalciferol (Vitamin D3) 10 MCG TABLET 20 MCG PO (07:43)
[2023-04-14] MEDS: Loratadine 10 MG TABLET PO (07:44)
[2023-04-14] MEDS: Ferrous Sulfate 324 MG TABLET.DR PO ×2 (07:44→20:07)
[2023-04-14] MEDS: risperiDONE 0.5 MG TABLET PO ×2 (07:44→20:07)
[2023-04-14] MEDS: busPIRone HCl 5 MG TABLET PO ×3 (07:44→20:08)
[2023-04-14] MEDS: Simethicone 80 MG TAB.CHEW PO ×3 (07:44→20:07)
[2023-04-14] MEDS: predniSONE 20 MG TABLET 40 MG PO (07:44)
[2023-04-14 08:06] LABS: Anion Gap 12 (12-20)
[2023-04-14 08:08] LABS: Blood Urea Nitrogen 57 mg/dL (9-16); Calcium 9.2 mg/dL (8.4-10.2); Carbon Dioxide 17 mmol/L (22-29); Chloride 117 mmol/L (96-108); Glucose Random 99 mg/dL (60-115); Potassium 4.7 mmol/L (3.3-5.1); Sodium 141 mmol/L (135-145)
[2023-04-14] MEDS: guaiFENesin DM 200/20/10 ML 10 ML SYRUP PO (10:36)
--- NOTE | 2023-04-14 10:36 | PC.NURSE ---
Pt sats on 1L NC 95% [place] ir sats 86%. Pt placed back on 1L where sats remain 95-96%. Pt give guaifenesin for cough. Sitting up in recliner after PT
--- NOTE | 2023-04-14 15:14 | MHC.CM.PN ---
[facility] 04/14/23 [facility] has offered a bed tomorrow Friday 04/14. Patient will transport via [facility]
--- NOTE | 2023-04-14 15:19 | HO.PM.IMPN ---
Subjective Subjective Date of Service: 04/14/23 Interval History: hypoxia,encephalopathy Review of Systems sob and menatal status somewhat imporving no fevers Physical Exam Vital Signs: Vital Signs: Last Vital Signs Temp 97 F 04/14/23 15:13 Pulse 86 04/14/23 15:13 Resp 19 04/14/23 15:13 BP 143/65 H 04/14/23 15:13 Pulse Ox 99 04/14/23 15:13 O2 Del Method Nasal Cannula 04/14/23 15:13 O2 Flow Rate 2 04/14/23 15:13 FiO2 40 04/09/23 15:06 BMI result Body Mass Index 26.6 Appearance: awake ,confused . cvs: [id number], [id number] , no murmur res: clear to auscultation ,no rhonchii or wheezing abd: no rebound or guarding ,nt, bs present. ext pulses present , no cyanosis. neuro: nonfocal. Objective Data Active Medications Acetaminophen (Acetaminophen 325 Mg Tablet) 650 mg PO Q6H PRN PRN Reason: Pain, Mild (Pain Scale 1-3) Last Admin: 04/14/23 03:59 Dose: 650 mg Documented By: GERMAIN Al Hydroxide/Mg Hydroxide (Magnesium Hydrox/Alum Hydrox 30 Ml Oral.Susp) 30 ml PO Q4H PRN PRN Reason: gi distress Last Admin: 04/13/23 21:48 Dose: 30 ml Documented By: GERMAIN Albuterol Sulfate (Albuterol Sulfate 90 Mcg 8 Gm Inhaler) 1 puff INHALE Q4H PRN PRN Reason: Shortness Of Breath Or Wheezing Albuterol/Ipratropium (Albuterol/Iprat 2.5/0.5mg 3 Ml Ampul.Neb) 3 ml INHALE RQ4H WHILE AWAKE PRN PRN Reason: Shortness of Breath/Wheezing Last Admin: 04/09/23 20:12 Dose: 3 ml Documented By: JOHN Amoxicillin (Amoxicillin Oral Susp 400 Mg/5 Ml 75 Ml Susp.Recon) 800 mg PO Q12H [facility] Last Admin: 04/14/23 06:00 Dose: 800 mg Documented By: GERMAIN Artificial Tears (Artificial Tears 15 Ml Drops) 1 drop EYE-BOTH BID [facility] Last Admin: 04/14/23 07:53 Dose: Not Given Documented By: BETSEY Non-Admin Reason: Med Not Available Buspirone HCl (Buspirone Hcl 5 Mg Tablet) 5 mg PO TID [facility] Last Admin: 04/14/23 14:06 Dose: 5 mg Documented By: BETSEY Calcium Carbonate (Calcium Carbonate 500 Mg Tablet) 500 mg PO BID [facility] Last Admin: 04/14/23 07:44 Dose: 500 mg Documented By: BETSEY Docusate Sodium (Docusate Sodium 100 Mg Capsule) 100 mg PO DAILY PRN PRN Reason: Constipation Doxycycline Monohydrate (Doxycycline Monohydrate 100 Mg Capsule) 100 mg PO Q12H [facility] Last Admin: 04/14/23 05:59 Dose: 100 mg Documented By: GERMAIN Ferrous Sulfate (Ferrous Sulfate 324 Mg Tablet.Dr) 324 mg PO BID [facility] Last Admin: 04/14/23 07:44 Dose: 324 mg Documented By: BETSEY Fluticasone Propionate (Fluticasone Propionate 100 Mcg Blst.W.Dev) 2 puff INHALE BID [facility] Last Admin: 04/14/23 08:37 Dose: Not Given Documented By: JOHN Non-Admin Reason: Pt unable to use MDI, RN aware Guaifenesin/Dextromethorphan (Guaifenesin Dm 200/20/10 Ml 10 Ml Syrup) 10 ml PO Q4H PRN PRN Reason: Cough Last Admin: 04/14/23 10:36 Dose: 10 ml Documented By: BETSEY Heparin Sodium (Porcine) (Heparin Sodium,Porcine 5,000 Unit/Ml Vial) 5,000 unit SUBCUT Q12H [facility] Last Admin: 04/14/23 11:15 Dose: 5,000 unit Documented By: BETSEY Levothyroxine Sodium (Levothyroxine Sodium 88 Mcg Tablet) 88 mcg PO DAILY@0600 [facility] Last Admin: 04/14/23 05:59 Dose: 88 mcg Documented By: GERMAIN Loratadine (Loratadine 10 Mg Tablet) 10 mg PO DAILY [facility] Last Admin: 04/14/23 07:44 Dose: 10 mg Documented By: BETSEY Magnesium Hydroxide (Milk Of Magnesia 30 Ml Oral.Susp) 30 ml PO DAILY PRN PRN Reason: Constipation Melatonin (Melatonin 3 Mg Tablet) 6 mg PO BEDTIME PRN PRN Reason: Insomnia Last Admin: 04/14/23 01:09 Dose: 6 mg Documented By: GERMAIN Omeprazole (Omeprazole 20 Mg Capsule.) 20 mg PO DAILY@0630 [facility] Last Admin: 04/14/23 05:59 Dose: 20 mg Documented By: GERMAIN Ondansetron HCl (Ondansetron Hcl 4 Mg/2 Ml Vial) 4 mg IVPUSH Q8H PRN PRN Reason: Nausea and Vomiting Prednisone (Prednisone 20 Mg Tablet) 40 mg PO DAILY [facility] Last Admin: 04/14/23 07:44 Dose: 40 mg Documented By: BETSEY Risperidone (Risperidone 0.5 Mg Tablet) 0.5 mg PO BID [facility] Last Admin: 04/14/23 07:44 Dose: 0.5 mg Documented By: BETSEY Simethicone (Simethicone 80 Mg Tab.Chew) 80 mg PO TID [facility] Last Admin: 04/14/23 14:06 Dose: 80 mg Documented By: BETSEY Sodium Chloride (0.9 % Sodium Chloride Flush 3 Ml Syringe) 3 ml IVFLUSH QSHIFT [facility] Last Admin: 04/14/23 07:56 Dose: Not Given Documented By: BETSEY Non-Admin Reason: No Access Vitamin D (Cholecalciferol (Vitamin D3) 10 Mcg Tablet) 20 mcg PO DAILY [facility] Last Admin: 04/14/23 07:43 Dose: 20 mcg Documented By: BETSEY Labs 04/12/23 08:00 04/14/23 05:31 Labs: Laboratory Results - last 24 hr 04/14/23 05:31 Anion Gap 12 Estim Creat Clear Calc 23.6 Estimated GFR 33 Random Glucose 99 Calcium 9.2 Assessment and Plan (1) Sepsis: Status: Acute (2) Bandemia: Status: Acute Plan 88-year-old female with a PMH significant for HTN, hypothyroidism, anemia of chronic disease, CKD 3, MDD, and with colostomy in place who presents to the ED from [facility] for evaluation of cough, SOB, and weakness. Pt will be admitted to the hospital for acute hypoxic respiratory failure in the setting of nosocomial acquired pneumonia with sepsis. Multiple attempts failed for IV access Acute hypoxic respiratory failure in the setting of nosocomial pneumonia Markedly improved last 24 hours. Remains tolerant of therapies vancomycin/Zosyn (4)-will switch to po antibiotics and prednisone ,wean titrate O2 as tolerated to maintain sats greater than equal to 90% MELLO in setting of CKD 3 Responding to volume repletion. Given no IV access will encourage p.o. -follow renals/divalents HTN-acceptable control on current therapies -adjust as indicated Hypothyroidism-Continue levothyroxine DNR/DNI, Heparin ongoing hospitalization:Acute hypoxic respiratory failure in the setting of nosocomial pneumonia for IV antibiotics -increased need for supplemental O2,d/w in detail with both daughters at bedside. Quality Stroke Does the patient have a stroke diagnosis?: No VTE Prior VTE?: No VTE Risk Level:: Medical - moderate - high VTE Device Contraindication: Treatment Not Indicated VTE Drug Contraindication: N/A - Med Ordered
[2023-04-14] MEDS: Artificial Tears 15 ML DROPS 1 DROP EYE-BOTH (20:03)
[2023-04-14] MEDS: Fluticasone Propionate 100 MCG BLST.W.DEV 2 PUFF INHALE (20:25)
[2023-04-15] VITALS (8 sets, daily range): BP systolic 140–158; BP diastolic 65–71; PULSE 76–89; RESP 15–24; TEMP 36.1–37; O2SAT 94–96
[2023-04-15] MEDS: Heparin Sodium,Porcine 5,000 UNIT/ML VIAL 5000 UNIT SUBCUT ×3 (00:13→23:32)
[2023-04-15] MEDS: Acetaminophen 325 MG TABLET 650 MG PO ×3 (00:52→21:26)
[2023-04-15] MEDS: Levothyroxine Sodium 88 MCG TABLET PO (05:15)
[2023-04-15] MEDS: Amoxicillin Oral Susp 400 mg/5 mL 75 mL SUSP.RECON 800 MG PO ×2 (05:15→18:10)
[2023-04-15] MEDS: Omeprazole 20 MG CAPSULE.DR PO (05:55)
[2023-04-15 06:18] LABS: Estimated Glomerular Filt Rate 30
[2023-04-15] MEDS: Doxycycline Monohydrate 100 MG CAPSULE PO ×2 (06:26→18:10)
[2023-04-15] MEDS: Fluticasone Propionate 100 MCG BLST.W.DEV 2 PUFF INHALE ×2 (08:03→19:46)
[2023-04-15] MEDS: Cholecalciferol (Vitamin D3) 10 MCG TABLET 20 MCG PO (09:28)
[2023-04-15] MEDS: predniSONE 20 MG TABLET 40 MG PO (09:28)
[2023-04-15] MEDS: busPIRone HCl 5 MG TABLET PO ×3 (09:28→20:55)
[2023-04-15] MEDS: Loratadine 10 MG TABLET PO (09:29)
[2023-04-15] MEDS: risperiDONE 0.5 MG TABLET PO ×2 (09:29→20:55)
[2023-04-15] MEDS: guaiFENesin DM 200/20/10 ML 10 ML SYRUP PO ×2 (09:29→18:10)
[2023-04-15] MEDS: Ferrous Sulfate 324 MG TABLET.DR PO ×2 (09:29→20:55)
[2023-04-15] MEDS: Simethicone 80 MG TAB.CHEW PO ×3 (09:29→20:55)
[2023-04-15] MEDS: Artificial Tears 15 ML DROPS 1 DROP EYE-BOTH (11:27)
--- NOTE | 2023-04-15 15:26 | MHC.CM.PN ---
Addendum entered by Chiara Santos 04/15/23 16:15: DC CANCELLED, PT SEEN BY ID AND WILL NEED 4 WEEKS OF IV ABX PT WILL GET A PICC THIS WEEK AND THEN DC TO STR [facility] AND FAMILY NOTIFIED Original Note: PT CLEARED TO DC TODAY STR BEING RECOMMENDED AND PT/FAMILY HAS ACCEPTED A BED AT [facility] HAS CONFIRMED THEY CAN TAKE PT TODAY AND SHE WILL GO TO UNIT 2 CM MET WITH PT AND DAUGHTER, THEY ARE AWARE BLS TRANSPORT HAS BEEN BOOKED [facility]IA [facility] FOR 730 HOURS IMM DELIVERED YESTERDAY
--- NOTE | 2023-04-15 16:37 | HO.PM.IMPN ---
Subjective Subjective Date of Service: 04/15/23 Interval History: Staph aureus bacteremia, pneumonia Review of Systems Patient mental status seems to be improving Denies any chest pain Shortness of breath also improving Physical Exam Vital Signs: Vital Signs: Last Vital Signs Temp 96.9 F 04/15/23 16:00 Pulse 89 04/15/23 16:00 Resp 18 04/15/23 16:00 BP 140/65 H 04/15/23 16:00 Pulse Ox 95 04/15/23 16:00 O2 Del Method Nasal Cannula 04/15/23 16:00 O2 Flow Rate 1 04/15/23 16:00 FiO2 40 04/09/23 15:06 BMI result Body Mass Index 26.6 Appearance: awake ,alert x2 -3. cvs: rrr, [id number] , no murmur res: clear to auscultation ,no rhonchii or wheezing abd: no rebound or guarding ,nt, bs present. ext pulses present , no cyanosis. neuro: nonfocal Objective Data Active Medications Acetaminophen (Acetaminophen 325 Mg Tablet) 650 mg PO Q6H PRN PRN Reason: Pain, Mild (Pain Scale 1-3) Last Admin: 04/15/23 09:28 Dose: 650 mg Documented By: BETSEY Al Hydroxide/Mg Hydroxide (Magnesium Hydrox/Alum Hydrox 30 Ml Oral.Susp) 30 ml PO Q4H PRN PRN Reason: gi distress Last Admin: 04/13/23 21:48 Dose: 30 ml Documented By: GERMAIN Albuterol Sulfate (Albuterol Sulfate 90 Mcg 8 Gm Inhaler) 1 puff INHALE Q4H PRN PRN Reason: Shortness Of Breath Or Wheezing Albuterol/Ipratropium (Albuterol/Iprat 2.5/0.5mg 3 Ml Ampul.Neb) 3 ml INHALE RQ4H WHILE AWAKE PRN PRN Reason: Shortness of Breath/Wheezing Last Admin: 04/09/23 20:12 Dose: 3 ml Documented By: JOHN Amoxicillin (Amoxicillin Oral Susp 400 Mg/5 Ml 75 Ml Susp.Recon) 800 mg PO Q12H [facility] Last Admin: 04/15/23 05:15 Dose: 800 mg Documented By: BARTOLOME Artificial Tears (Artificial Tears 15 Ml Drops) 1 drop EYE-BOTH BID [facility] Last Admin: 04/15/23 11:27 Dose: 1 drop Documented By: BETSEY Buspirone HCl (Buspirone Hcl 5 Mg Tablet) 5 mg PO TID [facility] Last Admin: 04/15/23 15:29 Dose: 5 mg Documented By: BETSEY Calcium Carbonate (Calcium Carbonate 500 Mg Tablet) 500 mg PO BID [facility] Last Admin: 04/15/23 09:29 Dose: 500 mg Documented By: BETSEY Docusate Sodium (Docusate Sodium 100 Mg Capsule) 100 mg PO DAILY PRN PRN Reason: Constipation Doxycycline Monohydrate (Doxycycline Monohydrate 100 Mg Capsule) 100 mg PO Q12H [facility] Last Admin: 04/15/23 06:26 Dose: 100 mg Documented By: BARTOLOME Ferrous Sulfate (Ferrous Sulfate 324 Mg Tablet.Dr) 324 mg PO BID [facility] Last Admin: 04/15/23 09:29 Dose: 324 mg Documented By: BETSEY Fluticasone Propionate (Fluticasone Propionate 100 Mcg Blst.W.Dev) 2 puff INHALE BID [facility] Last Admin: 04/15/23 08:03 Dose: 2 puff Documented By: ANNE MARIE Guaifenesin/Dextromethorphan (Guaifenesin Dm 200/20/10 Ml 10 Ml Syrup) 10 ml PO Q4H PRN PRN Reason: Cough Last Admin: 04/15/23 09:29 Dose: 10 ml Documented By: BETSEY Heparin Sodium (Porcine) (Heparin Sodium,Porcine 5,000 Unit/Ml Vial) 5,000 unit SUBCUT Q12H [facility] Last Admin: 04/15/23 11:27 Dose: 5,000 unit Documented By: BETSEY Cefazolin Sodium 2 gm/ Sodium (Chloride) 50 mls @ 100 mls/hr IV Q12H [facility] Levothyroxine Sodium (Levothyroxine Sodium 88 Mcg Tablet) 88 mcg PO DAILY@0600 [facility] Last Admin: 04/15/23 05:15 Dose: 88 mcg Documented By: BARTOLOME Loratadine (Loratadine 10 Mg Tablet) 10 mg PO DAILY [facility] Last Admin: 04/15/23 09:29 Dose: 10 mg Documented By: BETSEY Magnesium Hydroxide (Milk Of Magnesia 30 Ml Oral.Susp) 30 ml PO DAILY PRN PRN Reason: Constipation Melatonin (Melatonin 3 Mg Tablet) 6 mg PO BEDTIME PRN PRN Reason: Insomnia Last Admin: 04/14/23 01:09 Dose: 6 mg Documented By: GERMAIN Omeprazole (Omeprazole 20 Mg Capsule.) 20 mg PO DAILY@0630 [facility] Last Admin: 04/15/23 05:55 Dose: 20 mg Documented By: BARTOLOME Ondansetron HCl (Ondansetron Hcl 4 Mg/2 Ml Vial) 4 mg IVPUSH Q8H PRN PRN Reason: Nausea and Vomiting Prednisone (Prednisone 20 Mg Tablet) 40 mg PO DAILY [facility] Last Admin: 04/15/23 09:28 Dose: 40 mg Documented By: BETSEY Risperidone (Risperidone 0.5 Mg Tablet) 0.5 mg PO BID [facility] Last Admin: 04/15/23 09:29 Dose: 0.5 mg Documented By: BETSEY Simethicone (Simethicone 80 Mg Tab.Chew) 80 mg PO TID [facility] Last Admin: 04/15/23 15:29 Dose: 80 mg Documented By: BETSEY Sodium Chloride (0.9 % Sodium Chloride Flush 3 Ml Syringe) 3 ml IVFLUSH QSHIFT [facility] Last Admin: 04/15/23 15:42 Dose: Not Given Documented By: BETSEY Non-Admin Reason: No Access Vitamin D (Cholecalciferol (Vitamin D3) 10 Mcg Tablet) 20 mcg PO DAILY [facility] Last Admin: 04/15/23 09:28 Dose: 20 mcg Documented By: BETSEY Labs 04/12/23 08:00 04/15/23 05:43 Labs: Laboratory Results - last 24 hr 04/15/23 05:43 Hold Purple Top SEE NOTE Estim Creat Clear Calc 22.0 Estimated GFR 30 Assessment and Plan (1) Sepsis: Status: Acute (2) Pneumonia: Status: Acute Plan 88-year-old female with a PMH significant for HTN, hypothyroidism, anemia of chronic disease, CKD 3, MDD, and with colostomy in place who presents to the ED from [facility] for evaluation of cough, SOB, and weakness. Pt will be admitted to the hospital for acute hypoxic respiratory failure in the setting of nosocomial acquired pneumonia with sepsis. Multiple attempts failed for IV access Acute hypoxic respiratory failure in the setting of nosocomial pneumonia/staph aureus bacteremia Markedly improved last 24 hours. Remains tolerant of therapies mssa senstive to ceftriaxone echo will change antibiotics to cefzolin,will switch to po antibiotics and prednisone ,wean titrate O2 as tolerated to maintain sats greater than equal to 90% MELLO in setting of CKD 3 Responding to volume repletion. Given no IV access will encourage p.o. -follow renals/divalents HTN-acceptable control on current therapies -adjust as indicated Hypothyroidism-Continue levothyroxine DNR/DNI, Heparin ongoing hospitalization:Acute hypoxic respiratory failure in the setting of nosocomial pneumonia ,staph aureus bacteremia-for IV antibiotics -increased need for supplemental O2,d/w in detail with both daughters at bedside. Quality Stroke Does the patient have a stroke diagnosis?: No VTE Prior VTE?: No VTE Risk Level:: Medical - moderate - high VTE Device Contraindication: Treatment Not Indicated VTE Drug Contraindication: N/A - Med Ordered
[2023-04-15] MEDS: ceFAZolin Sodium/Dextrose,Iso 2 GM/50 ML PIGGYBACK IV (17:28)
--- NOTE | 2023-04-15 23:29 | W.PM.IDCN ---
History of Present Illness Data of Consult Service Date: 04/15/23 Requesting physician: Beti Burroughs Primary Care Provider: Unknown Physician HPI Reason for consult: sepsis,MSSA bacteremia She presents from [facility] with shortness of breath and yellowish productive sputum for three day. She has tachycardia to 91 and tachypnea with RR 24. She has RUL infiltrate and no TB history. Review of Systems Review of Systems: Yes all other systems are reviewed and are negative Constitutional: Constitutional: Denies chills, Denies fatigue, Denies fever(s), Denies headache(s), Denies weight gain and Denies weight loss Eyes: Eyes: Denies loss of vision ENT: Denies dizziness and Denies headache(s) Cardiovascular: Cardiovascular: Denies chest pain, Denies chest pain with activity, Denies dyspnea and Denies dyspnea on exertion Respiratory: Respiratory: Denies excessive phlegm production, Denies dyspnea, Denies dyspnea on exertion and Denies wheezing Gastrointestinal: Gastrointestinal: Denies abdominal pain, Denies hematochezia and Denies diarrhea Genitourinary: Genitourinary: Denies hematuria and Denies urinary frequency Musculoskeletal: Musculoskeletal: Denies abnormal gait, Denies arthralgias, Denies numbness and Denies tingling Integumentary/Breasts: Skin/Breast: Denies rash Neurologic: Denies abnormal gait, Denies dizziness, Denies headache(s), Denies loss of vision, Denies memory loss, Denies numbness and Denies tingling Psychiatric: Psychiatric: Denies memory loss Endocrine: Endocrine: Denies fatigue Allergic/Immunologic: Allergic/Immunologic: Denies wheezing PMFSH Past Medical History Medical History MDD (major depressive disorder) Anemia Hypothyroidism Essential (primary) hypertension CKD stage 3 due to type 1 diabetes mellitus Social History Social History Household Members: Other Do you presently have visiting nurse or other home services: Yes (Pt lives At [facility]) Alcohol intake: never Comment: 1:1 sitter Patient Tobacco Use Status: Never used Tobacco Use of substances other than those prescribed or required for medical reasons: No Currently Displaying Signs/Symptoms of Drug Intoxication Withdrawal: No Any prior treatment program specific to substance use: No Advance Directives: Yes Advance Directives on File: Yes Advance Directives Date on File: 07/20/22 Do you have thoughts of harming others: None Recently lost weight without trying: No Eating poorly because of decreased appetite: No Nutrition Risks: No Nutritional Risk Patient : No : No Poor oral hygiene: No service: No Meds Allergies Allergy/AdvReac Type Severity Reaction Status Date / Time Sulfa (Sulfonamide Allergy Severe UNKNOWN Verified 04/07/23 17:09 Antibiotics) [SULFA (SULFONAMIDE ANTIBIOTICS)] Active Medications: Current Medications Acetaminophen (Acetaminophen 325 Mg Tablet) 650 mg PO Q6H PRN PRN Reason: Pain, Mild (Pain Scale 1-3) Last Admin: 04/15/23 21:26 Dose: 650 mg Al Hydroxide/Mg Hydroxide (Magnesium Hydrox/Alum Hydrox 30 Ml Oral.Susp) 30 ml PO Q4H PRN PRN Reason: gi distress Last Admin: 04/13/23 21:48 Dose: 30 ml Albuterol Sulfate (Albuterol Sulfate 90 Mcg 8 Gm Inhaler) 1 puff INHALE Q4H PRN PRN Reason: Shortness Of Breath Or Wheezing Albuterol/Ipratropium (Albuterol/Iprat 2.5/0.5mg 3 Ml Ampul.Neb) 3 ml INHALE RQ4H WHILE AWAKE PRN PRN Reason: Shortness of Breath/Wheezing Last Admin: 04/09/23 20:12 Dose: 3 ml Amoxicillin (Amoxicillin Oral Susp 400 Mg/5 Ml 75 Ml Susp.Recon) 800 mg PO Q12H [facility] Last Admin: 04/15/23 18:10 Dose: 800 mg Artificial Tears (Artificial Tears 15 Ml Drops) 1 drop EYE-BOTH BID [facility] Last Admin: 04/15/23 21:05 Dose: Not Given Buspirone HCl (Buspirone Hcl 5 Mg Tablet) 5 mg PO TID [facility] Last Admin: 04/15/23 20:55 Dose: 5 mg Calcium Carbonate (Calcium Carbonate 500 Mg Tablet) 500 mg PO BID [facility] Last Admin: 04/15/23 20:55 Dose: 500 mg Docusate Sodium (Docusate Sodium 100 Mg Capsule) 100 mg PO DAILY PRN PRN Reason: Constipation Doxycycline Monohydrate (Doxycycline Monohydrate 100 Mg Capsule) 100 mg PO Q12H [facility] Last Admin: 04/15/23 18:10 Dose: 100 mg Ferrous Sulfate (Ferrous Sulfate 324 Mg Tablet.) 324 mg PO BID [facility] Last Admin: 04/15/23 20:55 Dose: 324 mg Fluticasone Propionate (Fluticasone Propionate 100 Mcg Blst.W.Dev) 2 puff INHALE BID [facility] Last Admin: 04/15/23 19:46 Dose: 2 puff Guaifenesin/Dextromethorphan (Guaifenesin Dm 200/20/10 Ml 10 Ml Syrup) 10 ml PO Q4H PRN PRN Reason: Cough Last Admin: 04/15/23 18:10 Dose: 10 ml Heparin Sodium (Porcine) (Heparin Sodium,Porcine 5,000 Unit/Ml Vial) 5,000 unit SUBCUT Q12H [facility] Last Admin: 04/15/23 11:27 Dose: 5,000 unit Cefazolin Sodium/Dextrose (Ancef) 2 gm in 50 mls @ 100 mls/hr IV Q12H [facility] Last Infusion: 04/15/23 18:07 Dose: Infused Levothyroxine Sodium (Levothyroxine Sodium 88 Mcg Tablet) 88 mcg PO DAILY@0600 [facility] Last Admin: 04/15/23 05:15 Dose: 88 mcg Loratadine (Loratadine 10 Mg Tablet) 10 mg PO DAILY [facility] Last Admin: 04/15/23 09:29 Dose: 10 mg Magnesium Hydroxide (Milk Of Magnesia 30 Ml Oral.Susp) 30 ml PO DAILY PRN PRN Reason: Constipation Melatonin (Melatonin 3 Mg Tablet) 6 mg PO BEDTIME PRN PRN Reason: Insomnia Last Admin: 04/14/23 01:09 Dose: 6 mg Omeprazole (Omeprazole 20 Mg Capsule.) 20 mg PO DAILY@0630 [facility] Last Admin: 04/15/23 05:55 Dose: 20 mg Ondansetron HCl (Ondansetron Hcl 4 Mg/2 Ml Vial) 4 mg IVPUSH Q8H PRN PRN Reason: Nausea and Vomiting Prednisone (Prednisone 20 Mg Tablet) 40 mg PO DAILY [facility] Last Admin: 04/15/23 09:28 Dose: 40 mg Risperidone (Risperidone 0.5 Mg Tablet) 0.5 mg PO BID [facility] Last Admin: 04/15/23 20:55 Dose: 0.5 mg Simethicone (Simethicone 80 Mg Tab.Chew) 80 mg PO TID [facility] Last Admin: 04/15/23 20:55 Dose: 80 mg Sodium Chloride (0.9 % Sodium Chloride Flush 3 Ml Syringe) 3 ml IVFLUSH QSHIFT [facility] Last Admin: 04/15/23 15:42 Dose: Not Given Vitamin D (Cholecalciferol (Vitamin D3) 10 Mcg Tablet) 20 mcg PO DAILY [facility] Last Admin: 04/15/23 09:28 Dose: 20 mcg Home Medications Medication Instructions Recorded Confirmed Last Taken Type acetaminophen 325 mg tablet 650 mg PO Q4H PRN temp/pain 04/07/23 04/07/23 Unknown History albuterol sulfate 90 mcg/actuation 1 inh inhalation Q4H PRN Shortness 04/07/23 04/07/23 Unknown History aerosol inhaler Of Breath Or Wheezing aluminum-mag hydroxide-simethicone 30 ml PO Q4H PRN gi distress 04/07/23 04/07/23 Unknown History 200 mg-200 mg-20 mg/5 mL oral susp (Mintox) amlodipine 2.5 mg tablet 2.5 mg PO DAILY 04/07/23 04/07/23 Unknown History buspirone 5 mg tablet 5 mg PO TID 04/07/23 04/07/23 Unknown History calcium carbonate 500 mg calcium 500 mg PO BID 04/07/23 04/07/23 Unknown History (1,250 mg) chewable tablet (Calcium 500) cholecalciferol (vitamin D3) 10 20 mcg PO DAILY 04/07/23 04/07/23 Unknown History mcg (400 unit) tablet erythromycin 5 mg/gram (0.5 %) eye 0.25 inch ophthalmic (eye) DAILY 04/07/23 04/07/23 Unknown History ointment PRN affected eyelids ferrous sulfate 325 mg (65 mg 325 mg PO BID 04/07/23 04/07/23 Unknown History iron) tablet,delayed release fluticasone propionate 110 2 puff inhalation BID 04/07/23 04/07/23 Unknown History mcg/actuation HFA aerosol inhaler guaifenesin 100 mg/5 mL oral liquid 200 mg PO Q4H PRN Cough 04/07/23 04/07/23 Unknown History levothyroxine 88 mcg tablet 88 mcg PO DAILY@0600 04/07/23 04/07/23 Unknown History loratadine 10 mg tablet 10 mg PO DAILY 04/07/23 04/07/23 Unknown History magnesium hydroxide 400 mg/5 mL 30 ml PO DAILY PRN Constipation 04/07/23 04/07/23 Unknown History oral suspension (Milk of Magnesia) omeprazole 20 mg capsule,delayed 20 mg PO DAILY@0630 04/07/23 04/07/23 Unknown History release polyvinyl alcohol 1.4 % eye drops 1 drp ophthalmic (eye) BID 04/07/23 04/07/23 Unknown History (Artificial Tears (polyvinyl alcohol)) risperidone 0.5 mg tablet 0.5 mg PO BID 04/07/23 04/07/23 Unknown History simethicone 125 mg chewable tablet 125 mg PO TID 04/07/23 04/07/23 Unknown History Physical Exam Vital Signs: Vital Signs: Last Vital Signs Temp 97.4 F 04/15/23 20:00 Pulse 86 04/15/23 20:00 Resp 18 04/15/23 20:00 BP 158/71 H 04/15/23 20:00 Pulse Ox 94 04/15/23 20:00 O2 Del Method Nasal Cannula 04/15/23 20:00 O2 Flow Rate 1 04/15/23 20:00 FiO2 40 04/09/23 15:06 BMI result Body Mass Index 26.6 Results Labs 04/12/23 08:00 04/15/23 05:43 Labs: BMP 04/15/23 05:43 Creatinine 1.60 H Microbiology Microbiology Results: Microbiology 04/07/23 10:47 Blood - Venous Blood Culture - Final No growth after 5 days. 04/07/23 10:30 Blood - Venous Blood Culture - Final Staphylococcus aureus 04/07/23 Unknown Urine clean catch - Urine rios top Urine Culture - Final Escherichia coli Assessment and Plan (1) Acute UTI: Status: Acute (2) Hypoxia: Status: Acute Plan She has possible endocarditis Check TTE Continue Kefzol likely four to six weeks through IV anbiotics through line
[2023-04-15] MEDS: Melatonin 3 MG TABLET 6 MG PO (23:32)
[2023-04-16] MEDS: 0.9 % Sodium Chloride Flush 3 ML SYRINGE IVFLUSH ×4 (00:14→20:08)
[2023-04-16 03:06] VITALS: BP 137/65; PULSE 89; RESP 18; TEMP 36.8; O2SAT 94
[2023-04-16] MEDS: ceFAZolin Sodium/Dextrose,Iso 2 GM/50 ML PIGGYBACK IV ×2 (05:48→17:46)
[2023-04-16] MEDS: Levothyroxine Sodium 88 MCG TABLET PO (05:49)
[2023-04-16] MEDS: Amoxicillin Oral Susp 400 mg/5 mL 75 mL SUSP.RECON 800 MG PO ×2 (05:49→18:00)
[2023-04-16] MEDS: Omeprazole 20 MG CAPSULE.DR PO (05:49)
[2023-04-16 06:26] LABS: Creatinine Clr Calc Pharmacy 21.3; Estimated Glomerular Filt Rate 29
[2023-04-16 07:05] VITALS: BP 135/62; PULSE 83; RESP 16; TEMP 36.3; O2SAT 95
[2023-04-16] MEDS: busPIRone HCl 5 MG TABLET PO ×3 (08:16→19:58)
[2023-04-16] MEDS: Cholecalciferol (Vitamin D3) 10 MCG TABLET 20 MCG PO (08:16)
[2023-04-16] MEDS: Loratadine 10 MG TABLET PO (08:16)
[2023-04-16] MEDS: risperiDONE 0.5 MG TABLET PO ×2 (08:16→19:58)
[2023-04-16] MEDS: Ferrous Sulfate 324 MG TABLET.DR PO ×2 (08:16→19:58)
[2023-04-16] MEDS: predniSONE 20 MG TABLET 40 MG PO (08:16)
[2023-04-16] MEDS: Doxycycline Monohydrate 100 MG CAPSULE PO ×2 (08:16→19:58)
[2023-04-16] MEDS: Simethicone 80 MG TAB.CHEW PO ×3 (08:16→19:58)
[2023-04-16] MEDS: Fluticasone Propionate 100 MCG BLST.W.DEV 2 PUFF INHALE ×2 (08:34→20:03)
[2023-04-16 08:36] VITALS: PULSE 82; RESP 18; O2SAT 91
[2023-04-16] MEDS: Acetaminophen 325 MG TABLET 650 MG PO ×2 (11:18→19:57)
[2023-04-16] MEDS: Heparin Sodium,Porcine 5,000 UNIT/ML VIAL 5000 UNIT SUBCUT ×2 (11:19→23:39)
--- NOTE | 2023-04-16 13:17 | HO.PM.IMPN ---
Subjective Subjective Date of Service: 04/16/23 Interval History: mssa bacteremia Review of Systems patient sob improving still has cough Physical Exam Vital Signs: Vital Signs: Last Vital Signs Temp 97.4 F 04/16/23 07:05 Pulse 82 04/16/23 08:36 Resp 18 04/16/23 08:36 BP 135/62 04/16/23 07:05 Pulse Ox 95 04/16/23 07:05 O2 Del Method Nasal Cannula 04/16/23 07:05 O2 Flow Rate 1 04/16/23 07:05 FiO2 40 04/09/23 15:06 BMI result Body Mass Index 26.6 Appearance: awake ,alert x2-3,easily directable . cvs: [id number], [id number] , no murmur res: clear to auscultation ,no rhonchii or wheezing abd: no rebound or guarding ,nt, bs present. ext pulses present , no cyanosis. neuro: nonfocal Objective Data Active Medications Acetaminophen (Acetaminophen 325 Mg Tablet) 650 mg PO Q6H PRN PRN Reason: Pain, Mild (Pain Scale 1-3) Last Admin: 04/16/23 11:18 Dose: 650 mg Documented By: OCTAVIO Al Hydroxide/Mg Hydroxide (Magnesium Hydrox/Alum Hydrox 30 Ml Oral.Susp) 30 ml PO Q4H PRN PRN Reason: gi distress Last Admin: 04/13/23 21:48 Dose: 30 ml Documented By: GERMAIN Albuterol Sulfate (Albuterol Sulfate 90 Mcg 8 Gm Inhaler) 1 puff INHALE Q4H PRN PRN Reason: Shortness Of Breath Or Wheezing Albuterol/Ipratropium (Albuterol/Iprat 2.5/0.5mg 3 Ml Ampul.Neb) 3 ml INHALE RQ4H WHILE AWAKE PRN PRN Reason: Shortness of Breath/Wheezing Last Admin: 04/09/23 20:12 Dose: 3 ml Documented By: JOHN Amoxicillin (Amoxicillin Oral Susp 400 Mg/5 Ml 75 Ml Susp.Recon) 800 mg PO Q12H [facility] Last Admin: 04/16/23 05:49 Dose: 800 mg Documented By: MAYRA Artificial Tears (Artificial Tears 15 Ml Drops) 1 drop EYE-BOTH BID [facility] Last Admin: 04/16/23 08:17 Dose: Not Given Documented By: OCTAVIO Non-Admin Reason: Patient Refused Buspirone HCl (Buspirone Hcl 5 Mg Tablet) 5 mg PO TID [facility] Last Admin: 04/16/23 08:16 Dose: 5 mg Documented By: OCTAVIO Calcium Carbonate (Calcium Carbonate 500 Mg Tablet) 500 mg PO BID [facility] Last Admin: 04/16/23 08:16 Dose: 500 mg Documented By: OCTAVIO Docusate Sodium (Docusate Sodium 100 Mg Capsule) 100 mg PO DAILY PRN PRN Reason: Constipation Doxycycline Monohydrate (Doxycycline Monohydrate 100 Mg Capsule) 100 mg PO Q12H [facility] Last Admin: 04/16/23 08:16 Dose: 100 mg Documented By: OCTAVIO Ferrous Sulfate (Ferrous Sulfate 324 Mg Tablet.Dr) 324 mg PO BID [facility] Last Admin: 04/16/23 08:16 Dose: 324 mg Documented By: OCTAVIO Fluticasone Propionate (Fluticasone Propionate 100 Mcg Blst.W.Dev) 2 puff INHALE BID [facility] Last Admin: 04/16/23 08:34 Dose: 2 puff Documented By: YUE Guaifenesin/Dextromethorphan (Guaifenesin Dm 200/20/10 Ml 10 Ml Syrup) 10 ml PO Q4H PRN PRN Reason: Cough Last Admin: 04/15/23 18:10 Dose: 10 ml Documented By: BETSEY Heparin Sodium (Porcine) (Heparin Sodium,Porcine 5,000 Unit/Ml Vial) 5,000 unit SUBCUT Q12H [facility] Last Admin: 04/16/23 11:19 Dose: 5,000 unit Documented By: OCTAVIO Cefazolin Sodium/Dextrose (Ancef) 2 gm in 50 mls @ 100 mls/hr IV Q12H [facility] Last Infusion: 04/16/23 06:34 Dose: Infused Documented By: MAYRA Levothyroxine Sodium (Levothyroxine Sodium 88 Mcg Tablet) 88 mcg PO DAILY@0600 [facility] Last Admin: 04/16/23 05:49 Dose: 88 mcg Documented By: MAYRA Lidocaine (Lidocaine 4 % Patch Adh..Patch) 1 patch TRANSDERMA DAILY [facility]; Protocol Loratadine (Loratadine 10 Mg Tablet) 10 mg PO DAILY [facility] Last Admin: 04/16/23 08:16 Dose: 10 mg Documented By: OCTAVIO Magnesium Hydroxide (Milk Of Magnesia 30 Ml Oral.Susp) 30 ml PO DAILY PRN PRN Reason: Constipation Melatonin (Melatonin 3 Mg Tablet) 6 mg PO BEDTIME PRN PRN Reason: Insomnia Last Admin: 04/15/23 23:32 Dose: 6 mg Documented By: MAYRA Omeprazole (Omeprazole 20 Mg Capsule.Dr) 20 mg PO DAILY@0630 [facility] Last Admin: 04/16/23 05:49 Dose: 20 mg Documented By: MAYRA Ondansetron HCl (Ondansetron Hcl 4 Mg/2 Ml Vial) 4 mg IVPUSH Q8H PRN PRN Reason: Nausea and Vomiting Prednisone (Prednisone 20 Mg Tablet) 40 mg PO DAILY [facility] Last Admin: 04/16/23 08:16 Dose: 40 mg Documented By: OCTAVIO Risperidone (Risperidone 0.5 Mg Tablet) 0.5 mg PO BID [facility] Last Admin: 04/16/23 08:16 Dose: 0.5 mg Documented By: OCTAVIO Simethicone (Simethicone 80 Mg Tab.Chew) 80 mg PO TID [facility] Last Admin: 04/16/23 08:16 Dose: 80 mg Documented By: OCTAVIO Sodium Chloride (0.9 % Sodium Chloride Flush 3 Ml Syringe) 3 ml IVFLUSH QSHIFT [facility] Last Admin: 04/16/23 08:16 Dose: 3 ml Documented By: OCTAVIO Vitamin D (Cholecalciferol (Vitamin D3) 10 Mcg Tablet) 20 mcg PO DAILY [facility] Last Admin: 04/16/23 08:16 Dose: 20 mcg Documented By: OCTAVIO Labs 04/12/23 08:00 04/16/23 05:46 Labs: Laboratory Results - last 24 hr 04/16/23 05:46 Hold Purple Top SEE NOTE Estim Creat Clear Calc 21.3 Estimated GFR 29 Assessment and Plan (1) Sepsis: Status: Acute (2) Pneumonia: Status: Acute Plan 88-year-old female with a PMH significant for HTN, hypothyroidism, anemia of chronic disease, CKD 3, MDD, and with colostomy in place who presents to the ED from [facility] for evaluation of cough, SOB, and weakness. Pt will be admitted to the hospital for acute hypoxic respiratory failure in the setting of nosocomial acquired pneumonia with sepsis. Multiple attempts failed for IV access Acute hypoxic respiratory failure in the setting of nosocomial pneumonia/staph aureus bacteremia Markedly improved last 24 hours. Remains tolerant of therapies blood culture -mssa 1/2 ,urine culture ecoli,repeat blood culture ordered. echo d/w Id-antibiotics to cefzolin,will switch to po antibiotics and prednisone ,wean titrate O2 as tolerated to maintain sats greater than equal to 90% MELLO in setting of CKD 3 Responding to volume repletion. Given no IV access will encourage p.o. -follow renals/divalents HTN-acceptable control on current therapies -adjust as indicated Hypothyroidism-Continue levothyroxine. DNR/DNI, Heparin ongoing hospitalization:Acute hypoxic respiratory failure in the setting of nosocomial pneumonia ,staph aureus bacteremia-for IV antibiotics -increased need for supplemental O2,d/w in detail with both daughters at bedside. Quality Stroke Does the patient have a stroke diagnosis?: No VTE Prior VTE?: No VTE Risk Level:: Medical - moderate - high VTE Device Contraindication: Treatment Not Indicated VTE Drug Contraindication: N/A - Med Ordered
[2023-04-16] MEDS: Lidocaine 4 % Patch ADH..PATCH 1 PATCH TRANSDERMA (13:18)
[2023-04-16] MEDS: Benzonatate 100 MG CAPSULE PO ×2 (14:21→19:59)
[2023-04-16 15:28] VITALS: BP 132/62; PULSE 78; RESP 18; TEMP 36.3; O2SAT 98
[2023-04-16] MEDS: guaiFENesin DM 200/20/10 ML 10 ML SYRUP PO (19:59)
[2023-04-16 20:00] VITALS: BP 164/70; PULSE 84; RESP 20; TEMP 36.3; O2SAT 99
[2023-04-16 20:05] VITALS: PULSE 79; RESP 18; O2SAT 96
[2023-04-17] MEDS: guaiFENesin DM 200/20/10 ML 10 ML SYRUP PO ×2 (00:04→14:17)
[2023-04-17 03:28] VITALS: BP 145/60; PULSE 78; RESP 20; TEMP 36.4; O2SAT 97
[2023-04-17] MEDS: Omeprazole 20 MG CAPSULE.DR PO (06:05)
[2023-04-17] MEDS: Doxycycline Monohydrate 100 MG CAPSULE PO (06:05)
[2023-04-17] MEDS: Levothyroxine Sodium 88 MCG TABLET PO (06:06)
[2023-04-17] MEDS: Amoxicillin Oral Susp 400 mg/5 mL 75 mL SUSP.RECON 800 MG PO (06:06)
[2023-04-17] MEDS: ceFAZolin Sodium/Dextrose,Iso 2 GM/50 ML PIGGYBACK IV ×2 (06:10→18:03)
[2023-04-17 07:22] VITALS: BP 140/80; PULSE 68; RESP 20; TEMP 36.2; O2SAT 97
[2023-04-17] MEDS: Fluticasone Propionate 100 MCG BLST.W.DEV 2 PUFF INHALE ×2 (07:27→20:38)
[2023-04-17 07:30] VITALS: PULSE 68; RESP 18; O2SAT 97
[2023-04-17] MEDS: predniSONE 20 MG TABLET 40 MG PO (07:54)
[2023-04-17] MEDS: Simethicone 80 MG TAB.CHEW PO ×3 (07:54→19:20)
[2023-04-17] MEDS: busPIRone HCl 5 MG TABLET PO ×3 (07:54→19:19)
[2023-04-17] MEDS: Cholecalciferol (Vitamin D3) 10 MCG TABLET 20 MCG PO (07:54)
[2023-04-17] MEDS: risperiDONE 0.5 MG TABLET PO ×2 (07:54→19:19)
[2023-04-17] MEDS: Loratadine 10 MG TABLET PO (07:55)
[2023-04-17] MEDS: Benzonatate 100 MG CAPSULE PO ×3 (07:55→19:20)
[2023-04-17] MEDS: Ferrous Sulfate 324 MG TABLET.DR PO ×2 (07:55→19:20)
[2023-04-17] MEDS: 0.9 % Sodium Chloride Flush 3 ML SYRINGE IVFLUSH ×2 (07:55→23:42)
[2023-04-17] MEDS: Lidocaine 4 % Patch ADH..PATCH 1 PATCH TRANSDERMA (08:02)
[2023-04-17] MEDS: Heparin Sodium,Porcine 5,000 UNIT/ML VIAL 5000 UNIT SUBCUT ×2 (11:07→23:41)
--- NOTE | 2023-04-17 13:49 | MHC.CM.PN ---
A clinical update has been sent to [facility]. No dc today. Patient is not medically cleared. Cultures must be clear for PICC insertion. An echo has been ordered. DC is anticipated Monday per Dr Burroughs. DP to [facility] for STR via BLS.
[2023-04-17] MEDS: Acetaminophen 325 MG TABLET 650 MG PO (14:16)
--- NOTE | 2023-04-17 14:44 | HO.PM.IMPN ---
Subjective Subjective Date of Service: 04/17/23 Interval History: mssa bacteremia Review of Systems patient sob improving,has cough Physical Exam Vital Signs: Vital Signs: Last Vital Signs Temp 97.2 F 04/17/23 07:22 Pulse 68 04/17/23 07:30 Resp 18 04/17/23 07:30 BP 140/80 H 04/17/23 07:22 Pulse Ox 97 04/17/23 07:22 O2 Del Method Nasal Cannula 04/17/23 07:22 O2 Flow Rate 1 04/17/23 07:22 FiO2 40 04/09/23 15:06 BMI result Body Mass Index 26.6 Appearance: awake ,alert x2-3,easily directable . cvs: rrr, [id number] , no murmur res: clear to auscultation ,no rhonchii or wheezing abd: no rebound or guarding ,nt, bs present. ext pulses present , no cyanosis. neuro: nonfocal Objective Data Active Medications Acetaminophen (Acetaminophen 325 Mg Tablet) 650 mg PO Q6H PRN PRN Reason: Pain, Mild (Pain Scale 1-3) Last Admin: 04/17/23 14:16 Dose: 650 mg Documented By: BETSEY Al Hydroxide/Mg Hydroxide (Magnesium Hydrox/Alum Hydrox 30 Ml Oral.Susp) 30 ml PO Q4H PRN PRN Reason: gi distress Last Admin: 04/13/23 21:48 Dose: 30 ml Documented By: GERMAIN Albuterol Sulfate (Albuterol Sulfate 90 Mcg 8 Gm Inhaler) 1 puff INHALE Q4H PRN PRN Reason: Shortness Of Breath Or Wheezing Albuterol/Ipratropium (Albuterol/Iprat 2.5/0.5mg 3 Ml Ampul.Neb) 3 ml INHALE RQ4H WHILE AWAKE PRN PRN Reason: Shortness of Breath/Wheezing Last Admin: 04/09/23 20:12 Dose: 3 ml Documented By: JOHN Artificial Tears (Artificial Tears 15 Ml Drops) 1 drop EYE-BOTH BID [facility] Last Admin: 04/17/23 08:06 Dose: Not Given Documented By: BETSEY Non-Admin Reason: Patient Refused Benzonatate (Benzonatate 100 Mg Capsule) 100 mg PO TID [facility] Last Admin: 04/17/23 14:17 Dose: 100 mg Documented By: BETSEY Buspirone HCl (Buspirone Hcl 5 Mg Tablet) 5 mg PO TID [facility] Last Admin: 04/17/23 14:16 Dose: 5 mg Documented By: BETSEY Calcium Carbonate (Calcium Carbonate 500 Mg Tablet) 500 mg PO BID [facility] Last Admin: 04/17/23 07:54 Dose: 500 mg Documented By: BETSEY Docusate Sodium (Docusate Sodium 100 Mg Capsule) 100 mg PO DAILY PRN PRN Reason: Constipation Ferrous Sulfate (Ferrous Sulfate 324 Mg Tablet.Dr) 324 mg PO BID [facility] Last Admin: 04/17/23 07:55 Dose: 324 mg Documented By: BETSEY Fluticasone Propionate (Fluticasone Propionate 100 Mcg Blst.W.Dev) 2 puff INHALE BID [facility] Last Admin: 04/17/23 07:27 Dose: 2 puff Documented By: NKECHI Guaifenesin/Dextromethorphan (Guaifenesin Dm 200/20/10 Ml 10 Ml Syrup) 10 ml PO Q4H PRN PRN Reason: Cough Last Admin: 04/17/23 14:17 Dose: 10 ml Documented By: BETSEY Heparin Sodium (Porcine) (Heparin Sodium,Porcine 5,000 Unit/Ml Vial) 5,000 unit SUBCUT Q12H [facility] Last Admin: 04/17/23 11:07 Dose: 5,000 unit Documented By: BETSEY Cefazolin Sodium/Dextrose (Ancef) 2 gm in 50 mls @ 100 mls/hr IV Q12H [facility] Last Infusion: 04/17/23 06:46 Dose: Infused Documented By: JESSICA Levothyroxine Sodium (Levothyroxine Sodium 88 Mcg Tablet) 88 mcg PO DAILY@0600 [facility] Last Admin: 04/17/23 06:06 Dose: 88 mcg Documented By: JESSICA Lidocaine (Lidocaine 4 % Patch Adh..Patch) 1 patch TRANSDERMA DAILY [facility]; Protocol Last Admin: 04/17/23 08:02 Dose: 1 patch Documented By: BETSEY Loratadine (Loratadine 10 Mg Tablet) 10 mg PO DAILY [facility] Last Admin: 04/17/23 07:55 Dose: 10 mg Documented By: BETSEY Magnesium Hydroxide (Milk Of Magnesia 30 Ml Oral.Susp) 30 ml PO DAILY PRN PRN Reason: Constipation Melatonin (Melatonin 3 Mg Tablet) 6 mg PO BEDTIME PRN PRN Reason: Insomnia Last Admin: 04/15/23 23:32 Dose: 6 mg Documented By: MAYRA Omeprazole (Omeprazole 20 Mg Capsule.) 20 mg PO DAILY@0630 [facility] Last Admin: 04/17/23 06:05 Dose: 20 mg Documented By: JESSICA Ondansetron HCl (Ondansetron Hcl 4 Mg/2 Ml Vial) 4 mg IVPUSH Q8H PRN PRN Reason: Nausea and Vomiting Prednisone (Prednisone 20 Mg Tablet) 40 mg PO DAILY [facility] Last Admin: 04/17/23 07:54 Dose: 40 mg Documented By: BETSEY Risperidone (Risperidone 0.5 Mg Tablet) 0.5 mg PO BID [facility] Last Admin: 04/17/23 07:54 Dose: 0.5 mg Documented By: BETSEY Simethicone (Simethicone 80 Mg Tab.Chew) 80 mg PO TID [facility] Last Admin: 04/17/23 14:16 Dose: 80 mg Documented By: BETSEY Sodium Chloride (0.9 % Sodium Chloride Flush 3 Ml Syringe) 3 ml IVFLUSH QSHIFT [facility] Last Admin: 04/17/23 07:55 Dose: 3 ml Documented By: BETSEY Vitamin D (Cholecalciferol (Vitamin D3) 10 Mcg Tablet) 20 mcg PO DAILY [facility] Last Admin: 04/17/23 07:54 Dose: 20 mcg Documented By: BETSEY Labs 04/12/23 08:00 04/16/23 05:46 Assessment and Plan (1) Sepsis: Status: Acute (2) Pneumonia: Status: Acute (3) Staph infection: Status: Acute Plan 88-year-old female with a PMH significant for HTN, hypothyroidism, anemia of chronic disease, CKD 3, MDD, and with colostomy in place who presents to the ED from [facility] for evaluation of cough, SOB, and weakness. Pt will be admitted to the hospital for acute hypoxic respiratory failure in the setting of nosocomial acquired pneumonia with sepsis. Multiple attempts failed for IV access Acute hypoxic respiratory failure in the setting of nosocomial pneumonia/staph aureus bacteremia Markedly improved last 24 hours. Remains tolerant of therapies blood culture -mssa 1/2 ,urine culture ecoli,repeat blood culture ordered. echo d/w Id-antibiotics to cefzolin started on 04/16/23,will switch to po antibiotics and prednisone ,wean titrate O2 as tolerated to maintain sats greater than equal to 90% MELLO in setting of CKD 3 Responding to volume repletion. Given no IV access will encourage p.o. -follow renals/divalents HTN-acceptable control on current therapies -adjust as indicated Hypothyroidism-Continue levothyroxine. DNR/DNI, Heparin ongoing hospitalization:Acute hypoxic respiratory failure in the setting of nosocomial pneumonia ,staph aureus bacteremia-for IV antibiotics -increased need for supplemental O2,d/w in detail with both daughters at bedside. Quality Stroke Does the patient have a stroke diagnosis?: No VTE Prior VTE?: No VTE Risk Level:: Medical - moderate - high VTE Device Contraindication: Treatment Not Indicated VTE Drug Contraindication: N/A - Med Ordered
[2023-04-17 15:12] VITALS: BP 135/74; PULSE 85; RESP 20; TEMP 36.2; O2SAT 94
[2023-04-17 15:19] VITALS: BP 135/74; PULSE 85; O2SAT 94
[2023-04-17 19:35] VITALS: BP 146/65; PULSE 83; RESP 20; TEMP 36.4; O2SAT 95
[2023-04-18] VITALS (7 sets, daily range): BP systolic 131–156; BP diastolic 59–67; PULSE 76–86; RESP 16–20; TEMP 36–36.3; O2SAT 89–96
[2023-04-18] MEDS: Omeprazole 20 MG CAPSULE.DR PO (05:53)
[2023-04-18] MEDS: Levothyroxine Sodium 88 MCG TABLET PO (05:53)
[2023-04-18] MEDS: ceFAZolin Sodium/Dextrose,Iso 2 GM/50 ML PIGGYBACK IV ×2 (05:54→17:01)
[2023-04-18] MEDS: Cholecalciferol (Vitamin D3) 10 MCG TABLET 20 MCG PO (08:44)
[2023-04-18] MEDS: Ferrous Sulfate 324 MG TABLET.DR PO ×2 (08:45→20:22)
[2023-04-18] MEDS: risperiDONE 0.5 MG TABLET PO ×2 (08:45→20:21)
[2023-04-18] MEDS: Loratadine 10 MG TABLET PO (08:45)
[2023-04-18] MEDS: Simethicone 80 MG TAB.CHEW PO ×3 (08:45→20:21)
[2023-04-18] MEDS: predniSONE 20 MG TABLET 40 MG PO (08:45)
[2023-04-18] MEDS: busPIRone HCl 5 MG TABLET PO ×3 (08:45→20:21)
[2023-04-18] MEDS: Benzonatate 100 MG CAPSULE PO ×3 (08:45→20:22)
[2023-04-18] MEDS: Lidocaine 4 % Patch ADH..PATCH 1 PATCH TRANSDERMA (08:45)
[2023-04-18] MEDS: Fluticasone Propionate 100 MCG BLST.W.DEV 2 PUFF INHALE ×2 (08:53→19:47)
[2023-04-18] MEDS: 0.9 % Sodium Chloride Flush 3 ML SYRINGE IVFLUSH ×3 (08:55→20:27)
--- NOTE | 2023-04-18 12:19 | HO.PM.IMPN ---
Subjective Subjective Date of Service: 04/19/23 Interval History: f/u on mssa bacteremia, no new complaint Physical Exam Vital Signs: Vital Signs: Last Vital Signs Temp 97.1 F 04/18/23 07:32 Pulse 86 04/18/23 08:57 Resp 20 04/18/23 08:57 BP 156/67 H 04/18/23 08:26 Pulse Ox 91 L 04/18/23 08:26 O2 Del Method Nasal Cannula 04/18/23 07:32 O2 Flow Rate 1 04/18/23 07:32 FiO2 40 04/09/23 15:06 BMI result Body Mass Index 26.6 Appearance: awake ,alert x 3,easily directable . cvs: rrr, [id number] , no murmur res: clear to auscultation ,no rhonchii or wheezing abd: no rebound or guarding ,nt, bs present. ext pulses present , no cyanosis. neuro: nonfocal Objective Data Active Medications Acetaminophen (Acetaminophen 325 Mg Tablet) 650 mg PO Q6H PRN PRN Reason: Pain, Mild (Pain Scale 1-3) Last Admin: 04/17/23 14:16 Dose: 650 mg Documented By: BETSEY Al Hydroxide/Mg Hydroxide (Magnesium Hydrox/Alum Hydrox 30 Ml Oral.Susp) 30 ml PO Q4H PRN PRN Reason: gi distress Last Admin: 04/13/23 21:48 Dose: 30 ml Documented By: GERMAIN Albuterol Sulfate (Albuterol Sulfate 90 Mcg 8 Gm Inhaler) 1 puff INHALE Q4H PRN PRN Reason: Shortness Of Breath Or Wheezing Albuterol/Ipratropium (Albuterol/Iprat 2.5/0.5mg 3 Ml Ampul.Neb) 3 ml INHALE RQ4H WHILE AWAKE PRN PRN Reason: Shortness of Breath/Wheezing Last Admin: 04/09/23 20:12 Dose: 3 ml Documented By: JOHN Artificial Tears (Artificial Tears 15 Ml Drops) 1 drop EYE-BOTH BID [facility] Last Admin: 04/18/23 08:57 Dose: Not Given Documented By: HERBIE Non-Admin Reason: Patient Refused Benzonatate (Benzonatate 100 Mg Capsule) 100 mg PO TID [facility] Last Admin: 04/18/23 08:45 Dose: 100 mg Documented By: HERBIE Buspirone HCl (Buspirone Hcl 5 Mg Tablet) 5 mg PO TID [facility] Last Admin: 04/18/23 08:45 Dose: 5 mg Documented By: HERBIE Calcium Carbonate (Calcium Carbonate 500 Mg Tablet) 500 mg PO BID [facility] Last Admin: 04/18/23 08:45 Dose: 500 mg Documented By: HERBIE Docusate Sodium (Docusate Sodium 100 Mg Capsule) 100 mg PO DAILY PRN PRN Reason: Constipation Ferrous Sulfate (Ferrous Sulfate 324 Mg Tablet.Dr) 324 mg PO BID [facility] Last Admin: 04/18/23 08:45 Dose: 324 mg Documented By: HERBIE Fluticasone Propionate (Fluticasone Propionate 100 Mcg Blst.W.Dev) 2 puff INHALE BID [facility] Last Admin: 04/18/23 08:53 Dose: 2 puff Documented By: NKECHI Guaifenesin/Dextromethorphan (Guaifenesin Dm 200/20/10 Ml 10 Ml Syrup) 10 ml PO Q4H PRN PRN Reason: Cough Last Admin: 04/17/23 14:17 Dose: 10 ml Documented By: BETSEY Heparin Sodium (Porcine) (Heparin Sodium,Porcine 5,000 Unit/Ml Vial) 5,000 unit SUBCUT Q12H [facility] Last Admin: 04/17/23 23:41 Dose: 5,000 unit Documented By: BARTOLOME Cefazolin Sodium/Dextrose (Ancef) 2 gm in 50 mls @ 100 mls/hr IV Q12H [facility] Last Infusion: 04/18/23 06:24 Dose: Infused Documented By: BARTOLOME Levothyroxine Sodium (Levothyroxine Sodium 88 Mcg Tablet) 88 mcg PO DAILY@0600 [facility] Last Admin: 04/18/23 05:53 Dose: 88 mcg Documented By: BARTOLOME Lidocaine (Lidocaine 4 % Patch Adh..Patch) 1 patch TRANSDERMA DAILY [facility]; Protocol Last Admin: 04/18/23 08:45 Dose: 1 patch Documented By: HERBIE Loratadine (Loratadine 10 Mg Tablet) 10 mg PO DAILY [facility] Last Admin: 04/18/23 08:45 Dose: 10 mg Documented By: HERBIE Magnesium Hydroxide (Milk Of Magnesia 30 Ml Oral.Susp) 30 ml PO DAILY PRN PRN Reason: Constipation Melatonin (Melatonin 3 Mg Tablet) 6 mg PO BEDTIME PRN PRN Reason: Insomnia Last Admin: 04/15/23 23:32 Dose: 6 mg Documented By: MAYRA Omeprazole (Omeprazole 20 Mg Capsule.Dr) 20 mg PO DAILY@0630 [facility] Last Admin: 04/18/23 05:53 Dose: 20 mg Documented By: BARTOLOME Ondansetron HCl (Ondansetron Hcl 4 Mg/2 Ml Vial) 4 mg IVPUSH Q8H PRN PRN Reason: Nausea and Vomiting Prednisone (Prednisone 20 Mg Tablet) 40 mg PO DAILY [facility] Last Admin: 04/18/23 08:45 Dose: 40 mg Documented By: HERBIE Risperidone (Risperidone 0.5 Mg Tablet) 0.5 mg PO BID [facility] Last Admin: 04/18/23 08:45 Dose: 0.5 mg Documented By: HERBIE Simethicone (Simethicone 80 Mg Tab.Chew) 80 mg PO TID [facility] Last Admin: 04/18/23 08:45 Dose: 80 mg Documented By: HERBIE Sodium Chloride (0.9 % Sodium Chloride Flush 3 Ml Syringe) 3 ml IVFLUSH QSHIFT [facility] Last Admin: 04/18/23 08:55 Dose: 3 ml Documented By: HERBIE Vitamin D (Cholecalciferol (Vitamin D3) 10 Mcg Tablet) 20 mcg PO DAILY [facility] Last Admin: 04/18/23 08:44 Dose: 20 mcg Documented By: HERBIE Labs 04/12/23 08:00 04/16/23 05:46 Microbiology Microbiology Results: Microbiology 04/16/23 14:55 Blood Culture - Preliminary Blood - Venous No growth after 24 hours. 04/16/23 14:55 Blood Culture - Preliminary Blood - Venous No growth after 24 hours. Assessment and Plan (1) Sepsis: Status: Acute (2) Pneumonia: Status: Acute (3) Staph infection: Status: Acute Plan 88-year-old female with a PMH significant for HTN, hypothyroidism, anemia of chronic disease, CKD 3, MDD, and with colostomy in place who presents to the ED from [facility] for evaluation of cough, SOB, and weakness. Pt was admitted for acute hypoxic respiratory failure in the setting of nosocomial acquired pneumonia with sepsis and ultimately found to have Staph bacteremia. Acute hypoxic respiratory failure in the setting of nosocomial pneumonia/staph aureus bacteremia She has made signficant improvment, however still needs oxygen continue Abx (Kefzol) for 6 weeks per ID recommendation, get echo to rule out vegetation MELLO in setting of CKD 3, Cr within baseline HTN-acceptable control on current therapies -adjust as indicated Hypothyroidism-Continue levothyroxine. DNR/DNI, Heparin need for inpatient: ongoing hospitalization:Acute hypoxic respiratory failure in the setting of nosocomial pneumonia ,staph aureus bacteremia-for IV antibiotics -increased need for supplemental O2,d/w in detail with both daughters at bedside. Quality Stroke Does the patient have a stroke diagnosis?: No VTE Prior VTE?: No VTE Risk Level:: Medical - moderate - high VTE Device Contraindication: Treatment Not Indicated VTE Drug Contraindication: N/A - Med Ordered
--- NOTE | 2023-04-18 13:00 | CA_ITS ---
Transthoracic Echocardiogram Patient (Last, First, Middle): Valentina Lockwood, Gender: Female Date of : 1935 Age: 88 Procedure Date: 04/18/2023 Procedure Type: Transthoracic Echocardiogram Location: OP Height: 170. cm Weight: 65.77 kg BSA: 1.76 m2 Heart Rate: 81 bpm BP: 156 / 67 mmHg Licensed Nuclear Control Room Operator: EMILEE Baugh MD: Luis Menon MD Pst Manager: Albert Ariza MD Symptoms: bacteremia, rule out endocarditis Study Quality: Adequate ECG Rhythm: Sinus Conclusions: - 1. Technically limited study to evaluate vegetation and this can not be entirely ruled out 2. Normal LV ejection fraction of 65-70% with moderate asymmetric septal hypertrophy with impaired relaxation filling pattern 3. Mild aortic stenosis Findings Left Ventricle Normal left ventricular size, thickness, and systolic function. The visually estimated ejection fraction is between 65-70%. Spectral Doppler is indicative of an impaired relaxation filling pattern. E/E prime ratio is between 8 and 15 consistent with indeterminate filling pressures. There is moderate septal asymmetric hypertrophy. Right Ventricle Normal right ventricular cavity size and systolic function. Atria The left atrium is mildly dilated. Interatrial shunt cannot be excluded. The right atrium is normal in size. Aortic Valve The aortic valve was not well visualized. There is mild calcification of the aortic valve. There is mild aortic valve stenosis. The peak aortic gradient is 13 mmHg.The mean gradient is 7 mmHg. The aortic valve area is 1.91 cm2. There is no aortic valve regurgitation. Mitral Valve The mitral valve was not well visualized. There is mild anterior mitral leaflet thickening. There is mild mitral annular calcification. There is trace mitral valve regurgitation. There is no mitral valve stenosis. Pulmonic Valve The pulmonic valve was not well visualized. Tricuspid Valve The tricuspid valve was not well visualized. Tricuspid regurgitation envelope is inadequate for calculation of right ventricular systolic pressure. Normal right atrial pressure. Great Vessels The aorta was not well visualized. The pulmonary artery was not well visualized. Venous The inferior vena cava is normal in size and collapses greater than 50% with inspiration. Pericardium/Pleural There is no evidence of pericardial effusion. Prior Study Comparison No prior study available for comparison. Recommendations, Care & Conclusions Consider a JARRETT if clinically appropriate. Measurements 2D Linear Measurements IVSd: 1.66 0.6-0.9/0.6-1.0 cm LVIDd: 2.92 3.9-5.3/4.2-5.9 cm LVIDd Index: 1.66 2.4-3.2/2.2-3.1 cm/m2 LVIDs: 1.73 2.0-3.6 cm LVPWd: 1.07 0.7-1.1 cm LA Diam: 4.10 2.7-3.8/3.0-4.0 cm LAIDs Index: 2.33 1.5-2.3 cm/m2 LV Mass: 161.68 67-162/88-224 g LV Mass Index: 91.87 43-95/49-115 g/m2 LVOT Diam: 1.80 3.0+(-)1.3 cm 2D Systolic Function EF 4C: 74.50 >55% EF 2C: 66.60 >55% EF BiP: 69.40 >55% Mitral Valve MV Pk E: 0.63 MV PK A: 0.77 MV Decel Time: 275.00 E/A: 0.80 E'Lateral: 8.05 E'Medial: 5.77 E/E' Med: 10.90 E/E' Lat: 7.80 PHT: 81.00 MVA PHT: 2.72 Decel [place]oke: 2.29 Aortic Valve AoV Pk Pb: 1.83 AoV Mn Pb: 1.22 AoV VTI: 0.34 AoV Pk Grad: 13.00 Aov Mn Grad: 7.00 CHRISTINA Cont.VTI: 1.91 LVOT LVOT Pk Pb: 1.08 LVOT Mn Pb: 0.77 LVOT VTI: 0.26 LVOT Pk Grad: 5.00 LVOT Mn Grad: 3.00 LVOT Diam: 1.80 LVOT Area: 2.54 Diastolic Function MV Pk E: 0.63 MV Pk A: 0.77 E/A: 0.80 E'Medial: 5.77 E/E' Med: 10.90 E' Laterial: 8.05 E/E' Lat: 7.80 Right Ventricle TAPSE (mm): 13.90 TVS' Pb: 9.57 Great Vessels Aorta Sinus of Valsalva: 2.90 2.0-3.5 cm Ao Asc: 2.60 2.1-3.4 cm Pulmonary Valve PV Pk Pb: 1.47 Peak PV Grad: 9.00 Updated in Other Vendor System with Status of Final Albert Ariza MD electronically signed on 04/19/2023 3:20:13 PM with status of Final
[2023-04-18] MEDS: Heparin Sodium,Porcine 5,000 UNIT/ML VIAL 5000 UNIT SUBCUT ×2 (14:30→23:41)
--- NOTE | 2023-04-18 17:02 | HO.OSTOMY ---
Wound Consult: Initial 88yr old?F admitted to [facility] on 04/07/23 - See progress notes and H&P for detailed history.? Ostomy consult placed for Ostomy pouch supplies.? Patient agreeable to assessment and photo documentation.? Arrival to bed side - patient was agreeable to assessment she reports pouch was leaking last night and was changed and has since not leaked. Pouch was assessed and remains intact - stoma appears red and moist through pouch assessment however the opening appears to be cut too big for her stoma. She was agreeable to pouch change. Pouch removed and skin and pouch assessed - there was a silent leak noted circumferential to the cut opening. The peristomal skin is intact light purple blue pigmentation - remains blanchable - suspect etiology to be chronic moisture VS varices. There was no acute bleeding to note and patient reports she does not bleed from the stoma or peristomal skin often. Lab values reviewed and no abnormal liver enzymes noted. TT to Dr. Lundberg with observation but no topical intervention is needed at this time. Colopast Sensura albert cut to fit 1 piece was applied cut to approximately 30mm round - template left at bedside. No ring or paste used at this time - she may benefit from paste or ring to seal out leaking. Direct care team will monitor for frequent leaking. Recommendations: 1. Empty pouch when 1/3 to 1/2 full. 2. Change pouch every 3-5 days or when leaking. Re-consult wound care Nurse for wound deterioration or wound changes.
[2023-04-18] MEDS: guaiFENesin DM 200/20/10 ML 10 ML SYRUP PO (20:20)
[2023-04-18] MEDS: Melatonin 3 MG TABLET 6 MG PO (20:21)
[2023-04-19] VITALS (7 sets, daily range): BP systolic 136–151; BP diastolic 59–70; PULSE 69–81; RESP 12–18; TEMP 35.8–36.1; O2SAT 95–98
[2023-04-19] MEDS: Acetaminophen 325 MG TABLET 650 MG PO ×3 (05:29→19:55)
[2023-04-19] MEDS: ceFAZolin Sodium/Dextrose,Iso 2 GM/50 ML PIGGYBACK IV ×2 (05:30→17:23)
[2023-04-19] MEDS: Omeprazole 20 MG CAPSULE.DR PO (05:30)
[2023-04-19] MEDS: Levothyroxine Sodium 88 MCG TABLET PO (05:30)
[2023-04-19] MEDS: Fluticasone Propionate 100 MCG BLST.W.DEV 2 PUFF INHALE ×2 (08:25→19:59)
--- NOTE | 2023-04-19 09:59 | HO.PICC ---
PICC Line Insertion NPICC Diagnosis: bacteremia Indication: 6wks ABT Pertinent Labs: Reviewed Technique: Following informed consent including risks, benefits and alternatives and using sterile technique including cap and mask, sterile gown, glove and drape, the right arm was prepped and draped in the usual sterile fashion of full barrier technique with CHG. Following completion of Pitkin Protocol the skin and soft tissues were anesthetized with 1% Lidocaine plain. Using ultrasound guidance, right basilic vein access was obtained. Over an 0.018 wire through peel-away sheath, a 4fr single lumen PASV PICC line was positioned. Catheter length is 33cm internal length, 0cm external length, for a total trimmed length of 33cm. The procedure was performed in rm 272. Tip verification was performed by Manny Srinivasan with Sherlock 3CG. Tip located in SVC. Ultrasound was used to document vein patency and for needle entry. A formal ultrasound picture and cardiac rhythm strip was recorded. Vascular Bacteriology Professor has released the line for use and it is currently dressed with a StatLock, Tegaderm, and CHG disc. Verification has been performed for blood return and line patency. Arm Circumference: 29cm Equipment: [employer] PowerNar[employer] SOLO with Sherlock 3CG Tip Catheter Type: 4FR single lumen PASV PICC catheter Lot #: [id number]
[2023-04-19] MEDS: busPIRone HCl 5 MG TABLET PO ×3 (10:15→19:56)
[2023-04-19] MEDS: risperiDONE 0.5 MG TABLET PO ×2 (10:15→19:56)
[2023-04-19] MEDS: Lidocaine 4 % Patch ADH..PATCH 1 PATCH TRANSDERMA (10:15)
[2023-04-19] MEDS: predniSONE 20 MG TABLET 40 MG PO (10:15)
[2023-04-19] MEDS: Simethicone 80 MG TAB.CHEW PO ×3 (10:15→19:55)
[2023-04-19] MEDS: Cholecalciferol (Vitamin D3) 10 MCG TABLET 20 MCG PO (10:16)
[2023-04-19] MEDS: Loratadine 10 MG TABLET PO (10:16)
[2023-04-19] MEDS: Ferrous Sulfate 324 MG TABLET.DR PO ×2 (10:16→19:56)
[2023-04-19] MEDS: Benzonatate 100 MG CAPSULE PO ×3 (10:16→19:55)
--- NOTE | 2023-04-19 10:39 | MHC.CM.PN ---
IMM 03/21/23 Per MD rounds discharge is anticipated tomorrow. The PICC line has been inserted. A clinical update has been sent to Aldair Redding. DP to Aldair Redding via BLS 03/22/23.
--- NOTE | 2023-04-19 11:05 | P.PNIM_ITS ---
Subjective Subjective Date of Service: 04/19/23 Interval History: f/u on mssa bacteremia, no new complaint. Blood noted in ostomy bag today Physical Exam 2 Vital Signs: Vital Signs: Last Vital Signs Temp 96.9 F 04/19/23 07:11 Pulse 69 04/19/23 08:28 Resp 16 04/19/23 08:28 BP 140/65 H 04/19/23 07:11 Pulse Ox 95 04/19/23 07:11 O2 Del Method Nasal Cannula 04/19/23 07:11 O2 Flow Rate 1 04/19/23 07:11 FiO2 40 04/09/23 15:06 BMI result Body Mass Index 26.6 Appearance: awake ,alert x 3,easily directable . cvs: rrr, [id number] , no murmur res: clear to auscultation ,no rhonchii or wheezing abd: no rebound or guarding ,nt, bs present. blood noted in ostomy bag ext pulses present , no cyanosis. neuro: nonfocal Objective Data Active Medications Acetaminophen (Acetaminophen 325 Mg Tablet) 650 mg PO Q6H PRN PRN Reason: Pain, Mild (Pain Scale 1-3) Last Admin: 04/19/23 05:29 Dose: 650 mg Documented By: FLORENCIA Al Hydroxide/Mg Hydroxide (Magnesium Hydrox/Alum Hydrox 30 Ml Oral.Susp) 30 ml PO Q4H PRN PRN Reason: gi distress Last Admin: 04/13/23 21:48 Dose: 30 ml Documented By: GERMAIN Albuterol Sulfate (Albuterol Sulfate 90 Mcg 8 Gm Inhaler) 1 puff INHALE Q4H PRN PRN Reason: Shortness Of Breath Or Wheezing Albuterol/Ipratropium (Albuterol/Iprat 2.5/0.5mg 3 Ml Ampul.Neb) 3 ml INHALE RQ4H WHILE AWAKE PRN PRN Reason: Shortness of Breath/Wheezing Last Admin: 04/09/23 20:12 Dose: 3 ml Documented By: JOHN Artificial Tears (Artificial Tears 15 Ml Drops) 1 drop EYE-BOTH BID [facility] Last Admin: 04/19/23 06:56 Dose: Not Given Documented By: HERBIE Non-Admin Reason: Patient Refused Benzonatate (Benzonatate 100 Mg Capsule) 100 mg PO TID [facility] Last Admin: 04/19/23 10:16 Dose: 100 mg Documented By: ELIZABETH Buspirone HCl (Buspirone Hcl 5 Mg Tablet) 5 mg PO TID [facility] Last Admin: 04/19/23 10:15 Dose: 5 mg Documented By: ELIZABETH Calcium Carbonate (Calcium Carbonate 500 Mg Tablet) 500 mg PO BID [facility] Last Admin: 04/19/23 10:15 Dose: 500 mg Documented By: ELIZABETH Docusate Sodium (Docusate Sodium 100 Mg Capsule) 100 mg PO DAILY PRN PRN Reason: Constipation Ferrous Sulfate (Ferrous Sulfate 324 Mg Tablet.Dr) 324 mg PO BID [facility] Last Admin: 04/19/23 10:16 Dose: 324 mg Documented By: ELIZABETH Fluticasone Propionate (Fluticasone Propionate 100 Mcg Blst.W.Dev) 2 puff INHALE BID [facility] Last Admin: 04/19/23 08:25 Dose: 2 puff Documented By: WENDI Guaifenesin/Dextromethorphan (Guaifenesin Dm 200/20/10 Ml 10 Ml Syrup) 10 ml PO Q4H PRN PRN Reason: Cough Last Admin: 04/18/23 20:20 Dose: 10 ml Documented By: MAXIM Comments: pt c/o cough and requested cough syrup Heparin Sodium (Porcine) (Heparin Sodium,Porcine 5,000 Unit/Ml Vial) 5,000 unit SUBCUT Q12H [facility] Last Admin: 04/18/23 23:41 Dose: 5,000 unit Documented By: FLORENCIA Cefazolin Sodium/Dextrose (Ancef) 2 gm in 50 mls @ 100 mls/hr IV Q12H [facility] Last Infusion: 04/19/23 06:00 Dose: Infused Documented By: FLORENCIA Levothyroxine Sodium (Levothyroxine Sodium 88 Mcg Tablet) 88 mcg PO DAILY@0600 [facility] Last Admin: 04/19/23 05:30 Dose: 88 mcg Documented By: FLORENCIA Lidocaine (Lidocaine 4 % Patch Adh..Patch) 1 patch TRANSDERMA DAILY [facility]; Protocol Last Admin: 04/19/23 10:15 Dose: 1 patch Documented By: ELIZABETH Loratadine (Loratadine 10 Mg Tablet) 10 mg PO DAILY [facility] Last Admin: 04/19/23 10:16 Dose: 10 mg Documented By: ELIZABETH Magnesium Hydroxide (Milk Of Magnesia 30 Ml Oral.Susp) 30 ml PO DAILY PRN PRN Reason: Constipation Melatonin (Melatonin 3 Mg Tablet) 6 mg PO BEDTIME PRN PRN Reason: Insomnia Last Admin: 04/18/23 20:21 Dose: 6 mg Documented By: MAXIM Comments: pt requested melatonin for sleep. Omeprazole (Omeprazole 20 Mg Capsule.) 20 mg PO DAILY@0630 [facility] Last Admin: 04/19/23 05:30 Dose: 20 mg Documented By: FLORENCIA Ondansetron HCl (Ondansetron Hcl 4 Mg/2 Ml Vial) 4 mg IVPUSH Q8H PRN PRN Reason: Nausea and Vomiting Prednisone (Prednisone 20 Mg Tablet) 40 mg PO DAILY [facility] Last Admin: 04/19/23 10:15 Dose: 40 mg Documented By: ELIZABETH Risperidone (Risperidone 0.5 Mg Tablet) 0.5 mg PO BID [facility] Last Admin: 04/19/23 10:15 Dose: 0.5 mg Documented By: ELIZABETH Simethicone (Simethicone 80 Mg Tab.Chew) 80 mg PO TID [facility] Last Admin: 04/19/23 10:15 Dose: 80 mg Documented By: ELIZABETH Sodium Chloride (0.9 % Sodium Chloride Flush 3 Ml Syringe) 3 ml IVFLUSH QSHIFT [facility] Last Admin: 04/19/23 10:29 Dose: Not Given Documented By: ELIZABETH Non-Admin Reason: off unit Vitamin D (Cholecalciferol (Vitamin D3) 10 Mcg Tablet) 20 mcg PO DAILY [facility] Last Admin: 04/19/23 10:16 Dose: 20 mcg Documented By: ELIZABETH Labs 04/12/23 08:00 04/16/23 05:46 Microbiology Microbiology Results: Microbiology 04/16/23 14:55 Blood Culture - Preliminary Blood - Venous No growth after 48 hours. 04/16/23 14:55 Blood Culture - Preliminary Blood - Venous No growth after 48 hours. Assessment and Plan (1) Sepsis: Status: Acute (2) Pneumonia: Status: Acute (3) Staph infection: Status: Acute Plan 88-year-old female with a PMH significant for HTN, hypothyroidism, anemia of chronic disease, CKD 3, MDD, and with colostomy in place who presents to the ED from [facility] for evaluation of cough, SOB, and weakness. Pt was admitted for acute hypoxic respiratory failure in the setting of nosocomial acquired pneumonia with sepsis and ultimately found to have Staph bacteremia. Acute hypoxic respiratory failure in the setting of nosocomial pneumonia/staph aureus bacteremia She has made signficant improvment, however still needs oxygen continue Abx (Kefzol) for 6 weeks per ID recommendation, get echo to rule out vegetation, PICC line inserted 04/18 MELLO in setting of CKD 3, Cr within baseline HTN-acceptable control on current therapies -adjust as indicated Hypothyroidism-Continue levothyroxine. GIB-blood noted in ostomy bag, replace bag and reassess, check H/H DNR/DNI, Heparin need for inpt: bacteremia, getting IV Abx, and likely dc tomorrow Quality Stroke Does the patient have a stroke diagnosis?: No VTE Prior VTE?: No VTE Risk Level:: Medical - moderate - high VTE Device Contraindication: Treatment Not Indicated VTE Drug Contraindication: N/A - Med Ordered
[2023-04-19 12:13] LABS: Hematocrit 29.9 % (37.0-47.0); Hemoglobin 9.6 g/dl (12.0-16.0); Mean Corpuscular HGB Conc 32.1 g/dl (31.0-35.0); Mean Corpuscular Hemoglobin 33.4 pg (27.0-33.0); Mean Corpuscular Volume 104.2 fL (80.0-98.0); PLT CLUMP 1; Red Blood Count 2.87 X10*6/uL (4.20-5.50); Red Cell Distribution Width 18.8 % (11.0-16.0)
[2023-04-19 12:14] LABS: White Blood Count 8.7 X10*3/uL (4.8-10.8)
--- NOTE | 2023-04-19 13:27 | PC.NURSE ---
Addendum entered by Miguel Colbert 04/19/23 18:11: Blood collected from stoma since bag was changed @11. MD Menon notified. notfied general surgeon lisa who will be up to the floor to assess. Original Note: This RN and MD Menon were at bedside and noticed new red blood in colostomy bag. @11 changed colostomy bag to assess site. No blood noted at circumfrence of stoma. Noted small 1mm laceration producing minimal blood on the stoma. notified, Heparin currently held. Cont to monitor. Unable to obtain photo which laceration was visible d/t size/lighting.
[2023-04-19 14:13] LABS: Mean Platelet Volume 13.3 fL (9.4-12.3); Platelet Count 76 X10*3/uL (160-400)
[2023-04-19] MEDS: Heparin Sodium,Porcine Flush 50 UNITS, 0.9 % Sodium Chloride Flush 5 ML IVFLUSH ×2 (15:53→23:27)
[2023-04-19] MEDS: guaiFENesin DM 200/20/10 ML 10 ML SYRUP PO (19:55)
[2023-04-19] MEDS: Melatonin 3 MG TABLET 6 MG PO (19:56)
--- NOTE | 2023-04-19 23:20 | P.CONGS_ITS ---
History of Present Illness Consult details Consult date: 04/19/23 Requesting physician: Luis Menon Narrative: 88 year old female patient with a right lower quadrant colostomy in place found to have bleeding from the edge since yesterday. Patient is unsure why or where the colostomy was performed. 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 sitter Patient Tobacco Use Status: Never used Tobacco Advance Directives Date on File: 07/20/22 service: No Meds Allergies Allergy/AdvReac Type Severity Reaction Status Date / Time Sulfa (Sulfonamide Allergy Severe UNKNOWN Verified 04/07/23 17:09 Antibiotics) [SULFA (SULFONAMIDE ANTIBIOTICS)] Active Medications: Current Medications Acetaminophen (Acetaminophen 325 Mg Tablet) 650 mg PO Q6H PRN PRN Reason: Pain, Mild (Pain Scale 1-3) Last Admin: 04/19/23 19:55 Dose: 650 mg Al Hydroxide/Mg Hydroxide (Magnesium Hydrox/Alum Hydrox 30 Ml Oral.Susp) 30 ml PO Q4H PRN PRN Reason: gi distress Last Admin: 04/13/23 21:48 Dose: 30 ml Albuterol Sulfate (Albuterol Sulfate 90 Mcg 8 Gm Inhaler) 1 puff INHALE Q4H PRN PRN Reason: Shortness Of Breath Or Wheezing Albuterol/Ipratropium (Albuterol/Iprat 2.5/0.5mg 3 Ml Ampul.Neb) 3 ml INHALE RQ4H WHILE AWAKE PRN PRN Reason: Shortness of Breath/Wheezing Last Admin: 04/09/23 20:12 Dose: 3 ml Artificial Tears (Artificial Tears 15 Ml Drops) 1 drop EYE-BOTH BID [facility] Last Admin: 04/19/23 19:56 Dose: Not Given Benzonatate (Benzonatate 100 Mg Capsule) 100 mg PO TID [facility] Last Admin: 04/19/23 19:55 Dose: 100 mg Buspirone HCl (Buspirone Hcl 5 Mg Tablet) 5 mg PO TID [facility] Last Admin: 04/19/23 19:56 Dose: 5 mg Calcium Carbonate (Calcium Carbonate 500 Mg Tablet) 500 mg PO BID [facility] Last Admin: 04/19/23 19:55 Dose: 500 mg Heparin Sodium (Porcine) 50 (units/ Sodium Chloride 5 ml) 0 units IVFLUSH QSHIFT [facility] Last Admin: 04/19/23 15:53 Dose: 50 unit Docusate Sodium (Docusate Sodium 100 Mg Capsule) 100 mg PO DAILY PRN PRN Reason: Constipation Ferrous Sulfate (Ferrous Sulfate 324 Mg Tablet.Dr) 324 mg PO BID [facility] Last Admin: 04/19/23 19:56 Dose: 324 mg Fluticasone Propionate (Fluticasone Propionate 100 Mcg Blst.W.Dev) 2 puff INHALE BID [facility] Last Admin: 04/19/23 19:59 Dose: 2 puff Guaifenesin/Dextromethorphan (Guaifenesin Dm 200/20/10 Ml 10 Ml Syrup) 10 ml PO Q4H PRN PRN Reason: Cough Last Admin: 04/19/23 19:55 Dose: 10 ml Heparin Sodium (Porcine) (Heparin Sodium,Porcine 5,000 Unit/Ml Vial) 5,000 unit SUBCUT Q12H [facility] Last Admin: 04/19/23 11:26 Dose: Not Given Cefazolin Sodium/Dextrose (Ancef) 2 gm in 50 mls @ 100 mls/hr IV Q12H [facility] Last Infusion: 04/19/23 18:08 Dose: Infused Levothyroxine Sodium (Levothyroxine Sodium 88 Mcg Tablet) 88 mcg PO DAILY@0600 [facility] Last Admin: 04/19/23 05:30 Dose: 88 mcg Lidocaine (Lidocaine 4 % Patch Adh..Patch) 1 patch TRANSDERMA DAILY [facility]; Protocol Last Admin: 04/19/23 10:15 Dose: 1 patch Loratadine (Loratadine 10 Mg Tablet) 10 mg PO DAILY [facility] Last Admin: 04/19/23 10:16 Dose: 10 mg Magnesium Hydroxide (Milk Of Magnesia 30 Ml Oral.Susp) 30 ml PO DAILY PRN PRN Reason: Constipation Melatonin (Melatonin 3 Mg Tablet) 6 mg PO BEDTIME PRN PRN Reason: Insomnia Last Admin: 04/19/23 19:56 Dose: 6 mg Omeprazole (Omeprazole 20 Mg Capsule.Dr) 20 mg PO DAILY@0630 [facility] Last Admin: 04/19/23 05:30 Dose: 20 mg Ondansetron HCl (Ondansetron Hcl 4 Mg/2 Ml Vial) 4 mg IVPUSH Q8H PRN PRN Reason: Nausea and Vomiting Prednisone (Prednisone 20 Mg Tablet) 40 mg PO DAILY [facility] Last Admin: 04/19/23 10:15 Dose: 40 mg Risperidone (Risperidone 0.5 Mg Tablet) 0.5 mg PO BID [facility] Last Admin: 04/19/23 19:56 Dose: 0.5 mg Simethicone (Simethicone 80 Mg Tab.Chew) 80 mg PO TID [facility] Last Admin: 04/19/23 19:55 Dose: 80 mg Sodium Chloride (0.9 % Sodium Chloride Flush 3 Ml Syringe) 3 ml IVFLUSH QSHIFT [facility] Last Admin: 04/19/23 21:03 Dose: Not Given Vitamin D (Cholecalciferol (Vitamin D3) 10 Mcg Tablet) 20 mcg PO DAILY [facility] Last Admin: 04/19/23 10:16 Dose: 20 mcg Home Medications Medication Instructions Recorded Confirmed Last Taken Type acetaminophen 325 mg tablet 650 mg PO Q4H PRN temp/pain 04/07/23 04/07/23 Unknown History albuterol sulfate 90 mcg/actuation 1 inh inhalation Q4H PRN Shortness 04/07/23 04/07/23 Unknown History aerosol inhaler Of Breath Or Wheezing aluminum-mag hydroxide-simethicone 30 ml PO Q4H PRN gi distress 04/07/23 04/07/23 Unknown History 200 mg-200 mg-20 mg/5 mL oral susp (Mintox) amlodipine 2.5 mg tablet 2.5 mg PO DAILY 04/07/23 04/07/23 Unknown History buspirone 5 mg tablet 5 mg PO TID 04/07/23 04/07/23 Unknown History calcium carbonate 500 mg calcium 500 mg PO BID 04/07/23 04/07/23 Unknown History (1,250 mg) chewable tablet (Calcium 500) cholecalciferol (vitamin D3) 10 20 mcg PO DAILY 04/07/23 04/07/23 Unknown History mcg (400 unit) tablet erythromycin 5 mg/gram (0.5 %) eye 0.25 inch ophthalmic (eye) DAILY 04/07/23 04/07/23 Unknown History ointment PRN affected eyelids ferrous sulfate 325 mg (65 mg 325 mg PO BID 04/07/23 04/07/23 Unknown History iron) tablet,delayed release fluticasone propionate 110 2 puff inhalation BID 04/07/23 04/07/23 Unknown History mcg/actuation HFA aerosol inhaler guaifenesin 100 mg/5 mL oral liquid 200 mg PO Q4H PRN Cough 04/07/23 04/07/23 Unknown History levothyroxine 88 mcg tablet 88 mcg PO DAILY@0600 04/07/23 04/07/23 Unknown History loratadine 10 mg tablet 10 mg PO DAILY 04/07/23 04/07/23 Unknown History magnesium hydroxide 400 mg/5 mL 30 ml PO DAILY PRN Constipation 04/07/23 04/07/23 Unknown History oral suspension (Milk of Magnesia) omeprazole 20 mg capsule,delayed 20 mg PO DAILY@0630 04/07/23 04/07/23 Unknown History release polyvinyl alcohol 1.4 % eye drops 1 drp ophthalmic (eye) BID 04/07/23 04/07/23 Unknown History (Artificial Tears (polyvinyl alcohol)) risperidone 0.5 mg tablet 0.5 mg PO BID 04/07/23 04/07/23 Unknown History simethicone 125 mg chewable tablet 125 mg PO TID 04/07/23 04/07/23 Unknown History Physical Exam 2 Vital Signs: Vital Signs: Last Vital Signs Temp 96.6 F L 04/19/23 19:11 Pulse 81 04/19/23 20:01 Resp 16 04/19/23 20:01 BP 136/59 L 04/19/23 19:11 Pulse Ox 97 04/19/23 19:11 O2 Del Method Nasal Cannula 04/19/23 19:11 O2 Flow Rate 1 04/19/23 19:11 FiO2 40 04/09/23 15:06 BMI result Body Mass Index 26.6 Const: General: comfortable and confusion Nutritional Appearance: well nourished Orientation/consciousness: confusion HEENT: Head: Yes normocephalic and Yes atraumatic Resp: Effort & Inspection: tachypneic GI: Other: soft, nondistended, non-tender. Ostomy in the right lower quadrant, with bleeding noted in the 2-3 o'clock location at the margin with seperating of the mucosa from the skin. Venous bleeding noted. Abdomen image: 1. Skin: Other: warm, dry, no rash Neuro: General: confusion Results Labs 04/19/23 11:58 04/16/23 05:46 Labs: Abnormal lab results 04/19/23 Range/Units 11:58 RBC 2.87 L (4.20-5.50) X10*6/uL Hgb 9.6 L (12.0-16.0) g/dl Hct 29.9 L (37.0-47.0) % MCV 104.2 H (80.0-98.0) fL MCH 33.4 H (27.0-33.0) pg RDW 18.8 H (11.0-16.0) % Plt Count 76 L D (160-400) X10*3/uL MPV 13.3 H (9.4-12.3) fL Short CBC 04/19/23 Range/Units 11:58 WBC 8.7 (4.8-10.8) X10*3/uL Hgb 9.6 L (12.0-16.0) g/dl Hct 29.9 L (37.0-47.0) % Plt Count 76 L D (160-400) X10*3/uL Urine 04/07/23 Range/Units 11:12 Urine Color Dark Yellow Urine Appearance Turbid Urine pH 5.5 (5.0-9.0) Ur Specific [place] 1.015 (1.005-1.025) Urine Protein 100 (2+) H (Neg-Trace) mg/dL Urine Glucose (UA) Negative (Negative) mg/dL All other labs normal. Assessment and Plan (1) Complication of colostomy: Status: Acute Plan Patient with bleeding from the colostomy at the margin. Attempted to control bleeding with silver nitrate without success. To control the bleeding, a suture of 3-0 Polysorb was placed between the mucosa and skin. The wound was then covered with Surgicel. The colostomy appliance was then replaced. Patient tolerated this very well. Good control noted. Procedures Date of Service Date of Service: 04/19/23
[2023-04-20 04:00] VITALS: BP 141/63; PULSE 76; RESP 16; TEMP 36; O2SAT 97
[2023-04-20] MEDS: Omeprazole 20 MG CAPSULE.DR PO (05:36)
[2023-04-20] MEDS: Levothyroxine Sodium 88 MCG TABLET PO (05:36)
[2023-04-20] MEDS: guaiFENesin DM 200/20/10 ML 10 ML SYRUP PO ×2 (05:38→19:35)
[2023-04-20] MEDS: ceFAZolin Sodium/Dextrose,Iso 2 GM/50 ML PIGGYBACK IV ×2 (05:40→17:47)
[2023-04-20 07:14] VITALS: BP 153/67; PULSE 77; RESP 12; TEMP 36.1; O2SAT 95
[2023-04-20] MEDS: Ferrous Sulfate 324 MG TABLET.DR PO ×2 (08:21→19:35)
[2023-04-20] MEDS: busPIRone HCl 5 MG TABLET PO ×3 (08:21→19:35)
[2023-04-20] MEDS: Benzonatate 100 MG CAPSULE PO ×2 (08:21→15:19)
[2023-04-20] MEDS: Cholecalciferol (Vitamin D3) 10 MCG TABLET 20 MCG PO (08:21)
[2023-04-20] MEDS: Loratadine 10 MG TABLET PO (08:21)
[2023-04-20] MEDS: risperiDONE 0.5 MG TABLET PO ×2 (08:21→19:36)
[2023-04-20] MEDS: Simethicone 80 MG TAB.CHEW PO ×3 (08:21→19:36)
[2023-04-20] MEDS: Heparin Sodium,Porcine Flush 50 UNITS, 0.9 % Sodium Chloride Flush 5 ML IVFLUSH ×3 (08:22→23:26)
[2023-04-20] MEDS: predniSONE 20 MG TABLET 40 MG PO (08:22)
[2023-04-20] MEDS: 0.9 % Sodium Chloride Flush 3 ML SYRINGE IVFLUSH ×2 (08:22→19:32)
--- NOTE | 2023-04-20 09:28 | PM.PNGS ---
Subjective Subjective Date of Service: 04/20/23 Interval history: Patient denies any new symptoms, does not remember the events last night. Physical Exam Vital Signs: Vital Signs: Last Vital Signs Temp 97 F 04/20/23 07:14 Pulse 77 04/20/23 07:14 Resp 12 04/20/23 07:14 BP 153/67 H 04/20/23 07:14 Pulse Ox 95 04/20/23 07:14 O2 Del Method Nasal Cannula 04/20/23 07:14 O2 Flow Rate 1 04/20/23 07:14 FiO2 40 04/09/23 15:06 BMI result Body Mass Index 26.6 Const: General: comfortable and no acute distress Resp: Effort & Inspection: normal respiratory effort GI: Other: Ostomy site clean with no further bleeding identified. Large amount of stool within the bag. Inspection: Yes abdominal wall ecchymosis Objective Data Active Medications Acetaminophen (Acetaminophen 325 Mg Tablet) 650 mg PO Q6H PRN PRN Reason: Pain, Mild (Pain Scale 1-3) Last Admin: 04/19/23 19:55 Dose: 650 mg Documented By: MAXIM Al Hydroxide/Mg Hydroxide (Magnesium Hydrox/Alum Hydrox 30 Ml Oral.Susp) 30 ml PO Q4H PRN PRN Reason: gi distress Last Admin: 04/13/23 21:48 Dose: 30 ml Documented By: GERMAIN Albuterol Sulfate (Albuterol Sulfate 90 Mcg 8 Gm Inhaler) 1 puff INHALE Q4H PRN PRN Reason: Shortness Of Breath Or Wheezing Albuterol/Ipratropium (Albuterol/Iprat 2.5/0.5mg 3 Ml Ampul.Neb) 3 ml INHALE RQ4H WHILE AWAKE PRN PRN Reason: Shortness of Breath/Wheezing Last Admin: 04/09/23 20:12 Dose: 3 ml Documented By: JOHN Artificial Tears (Artificial Tears 15 Ml Drops) 1 drop EYE-BOTH BID [facility] Last Admin: 04/20/23 08:23 Dose: Not Given Documented By: BEKA Non-Admin Reason: Patient Refused Benzonatate (Benzonatate 100 Mg Capsule) 100 mg PO TID [facility] Last Admin: 04/20/23 08:21 Dose: 100 mg Documented By: BEKA Buspirone HCl (Buspirone Hcl 5 Mg Tablet) 5 mg PO TID [facility] Last Admin: 04/20/23 08:21 Dose: 5 mg Documented By: BEKA Calcium Carbonate (Calcium Carbonate 500 Mg Tablet) 500 mg PO BID [facility] Last Admin: 04/20/23 08:21 Dose: 500 mg Documented By: BEKA Heparin Sodium (Porcine) 50 (units/ Sodium Chloride 5 ml) 0 units IVFLUSH QSHIFT [facility] Last Admin: 04/20/23 08:22 Dose: 50 unit Documented By: BEKA Docusate Sodium (Docusate Sodium 100 Mg Capsule) 100 mg PO DAILY PRN PRN Reason: Constipation Ferrous Sulfate (Ferrous Sulfate 324 Mg Tablet.Dr) 324 mg PO BID [facility] Last Admin: 04/20/23 08:21 Dose: 324 mg Documented By: BEKA Fluticasone Propionate (Fluticasone Propionate 100 Mcg Blst.W.Dev) 2 puff INHALE BID [facility] Last Admin: 04/20/23 08:00 Dose: Not Given Documented By: DANILO Non-Admin Reason: Patient Asleep Guaifenesin/Dextromethorphan (Guaifenesin Dm 200/20/10 Ml 10 Ml Syrup) 10 ml PO Q4H PRN PRN Reason: Cough Last Admin: 04/20/23 05:38 Dose: 10 ml Documented By: MAXIM Comments: pt c/o a cough and requesting cough syrup. Heparin Sodium (Porcine) (Heparin Sodium,Porcine 5,000 Unit/Ml Vial) 5,000 unit SUBCUT Q12H [facility] Last Admin: 04/19/23 11:26 Dose: Not Given Documented By: HERBIE Non-Admin Reason: Physician Held Med Cefazolin Sodium/Dextrose (Ancef) 2 gm in 50 mls @ 100 mls/hr IV Q12H [facility] Last Infusion: 04/20/23 06:10 Dose: Infused Documented By: MAXIM Levothyroxine Sodium (Levothyroxine Sodium 88 Mcg Tablet) 88 mcg PO DAILY@0600 [facility] Last Admin: 04/20/23 05:36 Dose: 88 mcg Documented By: MAXIM Lidocaine (Lidocaine 4 % Patch Adh..Patch) 1 patch TRANSDERMA DAILY [facility]; Protocol Last Admin: 04/19/23 10:15 Dose: 1 patch Documented By: ELIZABETH Loratadine (Loratadine 10 Mg Tablet) 10 mg PO DAILY [facility] Last Admin: 04/20/23 08:21 Dose: 10 mg Documented By: BEKA Magnesium Hydroxide (Milk Of Magnesia 30 Ml Oral.Susp) 30 ml PO DAILY PRN PRN Reason: Constipation Melatonin (Melatonin 3 Mg Tablet) 6 mg PO BEDTIME PRN PRN Reason: Insomnia Last Admin: 04/19/23 19:56 Dose: 6 mg Documented By: MAXIM Omeprazole (Omeprazole 20 Mg Capsule.Dr) 20 mg PO DAILY@0630 [facility] Last Admin: 04/20/23 05:36 Dose: 20 mg Documented By: MAXIM Ondansetron HCl (Ondansetron Hcl 4 Mg/2 Ml Vial) 4 mg IVPUSH Q8H PRN PRN Reason: Nausea and Vomiting Prednisone (Prednisone 20 Mg Tablet) 40 mg PO DAILY [facility] Last Admin: 04/20/23 08:22 Dose: 40 mg Documented By: BEKA Risperidone (Risperidone 0.5 Mg Tablet) 0.5 mg PO BID [facility] Last Admin: 04/20/23 08:21 Dose: 0.5 mg Documented By: BEKA Simethicone (Simethicone 80 Mg Tab.Chew) 80 mg PO TID [facility] Last Admin: 04/20/23 08:21 Dose: 80 mg Documented By: BEKA Sodium Chloride (0.9 % Sodium Chloride Flush 3 Ml Syringe) 3 ml IVFLUSH QSHIFT [facility] Last Admin: 04/20/23 08:22 Dose: 3 ml Documented By: BEKA Vitamin D (Cholecalciferol (Vitamin D3) 10 Mcg Tablet) 20 mcg PO DAILY [facility] Last Admin: 04/20/23 08:21 Dose: 20 mcg Documented By: BEKA Labs 04/19/23 11:58 04/16/23 05:46 Labs: Laboratory Results - last 24 hr 04/19/23 11:58 MCV 104.2 H MCH 33.4 H MCHC 32.1 RDW 18.8 H Plt Count 76 L D MPV 13.3 H Absolute Nucleated RBC 0.000 Nucleated RBC % (auto) 0.0 Blood Type A Positive Antibody Screen NEGATIVE Procedures Date of Service Date of Service: 04/20/23 Progress Note: A&P Assessment and plan (1) Complication of colostomy: Status: Acute Plan 88-year-old female patient status post right-sided colostomy, developed bleeding yesterday. Ostomy was sutured now with good hemostasis. No further intervention required at this time. Please call for any further issues. Time Spent With Patient Time: Total time managing care of this patient today ____ minutes. Quality Stroke Does the patient have a stroke diagnosis?: No VTE Prior VTE?: No VTE Risk Level:: Medical - moderate - high VTE Device Contraindication: Treatment Not Indicated VTE Drug Contraindication: N/A - Med Ordered
[2023-04-20] MEDS: Lidocaine 4 % Patch ADH..PATCH 1 PATCH TRANSDERMA (10:47)
--- NOTE | 2023-04-20 11:12 | P.DS_ITS ---
DS: Providers Provider Date of Service: 04/22/23 Date of admission: 04/07/23 12:06 Primary care physician: Unknown Physician Consults: 04/07/23 16:56 Consult to Wound Care Routine Reason for consultation: skin tare left arm, bilateral groin fungal rash, left arm bruise Has provider been notified: Yes 04/11/23 16:32 Consult to Psychiatry Routine Consulting Provider: Psych Covering Reason for consultation: delirum Has provider been notified: No 04/11/23 16:47 Consult to Infectious Diseases Routine Consulting Provider: [facility] [place] Infectious Disease Reason for consultation: bacteremia Has provider been notified: No 04/18/23 07:08 Consult to Wound Care Routine Reason for consultation: colostomy care and supplies please, changed [id number], skin pink [id number] positi Has provider been notified: No 04/19/23 17:49 Consult to General Surgery Routine Consulting Provider: [facility] General Surgeons Reason for consultation: bleeding from ostomy DS: Diagnosis Discharge Diagnosis (1) Complication of colostomy: Status: Acute DS: Summary Hospital Course Hospital Course: admission hpi Attending physician on admission: Chung Schwartz Chief Complaint: SOB, fatigue Pt is an 88-year-old female with a PMH significant for HTN, hypothyroidism, anemia of chronic disease, CKD 3, MDD, and with colostomy in place who presents to the ED from [facility] for evaluation of cough, SOB, and we akness. Pt is confused at baseline and unaware of her PMH and thus not a great historian. Pt tested positive influenza on 03/01/2023 and treated with Tamiflu. Unclear when patient is symptoms started, but she currently complains of shortness of breath, difficulty breathing, weakness, and nonproductive cough. She does not carry a diagnosis of COPD or asthma, and is not on home O2. Admits to smoking in her 30s, but quit over 50 years ago. Denies chest pain/pressure, palpitations. No fever or chills. Denies nausea, vomiting, diarrhea, abdominal pain. Patient states she does not ambulate on her own, but gets around the facility in a wheelchair at baseline. In the ED pt was tachycardic up to 104, tachypnic up to 24 during exam, had soft BP 130/1, and was satting as low as 85% on RA. Labs were significant for bandemia of 19%, H&H of 10.1/32.0, BUN 50, creatinine 2.82, at albumin 2.9. UA positive for UTI. Tested negative for influenza type a and B, RSV, COVID. CXR showed focal radial opacity involving right upper lobes suggesting infectious/inflammatory etiology with bronchial thickening. EKG demonstrated sinus tachycardia of 101 with premature supraventricular complexes with no evidence of ST elevations or depressions. Pt was treated with IVF, ceftriaxone, and azithromycin. Pt will be admitted to the hospital for acute hypoxic respiratory failure in the setting of nosocomial acquired pneumonia with sepsis. Hospital course: The patient presented with weakness and shortness of breath, and the workup revealed a urinary tract infection (UTI) and pneumonia complicated by acute hypoxic respiratory failure and acute renal failure. He was admitted and initiated on IV antibiotics and IV fluids for renal failure. Blood cultures later grew Staphylococcus aureus (MSSA). Echocardiogram show no endocarditis. An infectious disease consultation was requested with a recommendation to treat for a total of six days. A PICC line was inserted for this purpose. Regarding pneumonia with acute hypoxic respiratory failure, the patient's shortness of breath has improved. He is now requiring 1 liter of oxygen and saturating at 95%, and he does not feel short of breath. Acute renal failure on chronic kidney disease has improved, with the initial creatinine of 2.9 improving to 1.4 then went back up to 1.9 then now back to 1.7 which is within her baseline. She also had mild hyperkalemia potassium reaching 5.4 and given Lokelma and now 5. It is noted that the patient has a colostomy and was experiencing oozing from the ostomy edges, which was sutured by surgery with good hemostasis and no significant shift in hemoglobin or hematocrit. The patient will be discharged to a rehabilitation facility to complete the course of antibiotics. Thrombocytopenia--her platletslevel has fluctuated initial platlets of 192, then dropped to 142, then to 123, 76, then went back up to 104, 90 and today 76. She is presently not having any active bleeding and heparin was discontinued. Recommend checking CBC again in 3 days Time Attestation Discharge Coordination Time (in mins): 40 Quality: Safe Use of Opioids Does Pt have an Active Cancer Diagnosis on the Problem List?: No Quality: Stroke Does the patient have a stroke diagnosis?: No Physical Exam Vital Signs: Vital Signs: Selected Entries 04/22/23 08:00 Temperature 97.5 F Pulse Rate 86 Respiratory Rate 17 Blood Pressure 159/67 H Pulse Oximetry 95 Oxygen Delivery Me thod Nasal Cannula Const: Other: General: AO X 2, no acute distress Resp: CTA bilateral CVS: S1,S2,RRR GI: +BS, NT, no distention, ostomy bag with residual blood Skin: No rash Neuro: motor grossly intact Psych: appropriate affect DS: Data Data Completed and Pending Labs on day of discharge: Laboratory Results - last 24 hr 04/19/23 11:58 WBC 8.7 RBC 2.87 L Hgb 9.6 L Hct 29.9 L MCV 104.2 H MCH 33.4 H MCHC 32.1 RDW 18.8 H Plt Count 76 L D MPV 13.3 H Absolute Nucleated RBC 0.000 Nucleated RBC % (auto) 0.0 Blood Type A Positive Antibody Screen NEGATIVE Preliminary micro results at discharge 04/16/23 14:55 Blood Culture - Preliminary Blood - Venous No growth after 48 hours. 04/16/23 14:55 Blood Culture - Preliminary Blood - Venous No growth after 48 hours. Discharge Plan Discharge Anticipated Discharge Date/Time: 04/22/23 14:42 Patient Disposition: er SNF Discharge Diagnosis: sepsis and penumonia Referrals: Aldair Redding [Outside] Physician,Unknown J [Primary Care Provider] - 1 Week Discharge Medications: New cefazolin 2 gram recon soln 2 g IV Q12H 36 Days Qty: 72 0RF Continued omeprazole 20 mg Capsule,Delayed Release(Dr/Ec) 20 mg PO DAILY@0630 fluticasone propionate [Flovent HFA] 110 mcg/actuation Hfa Aerosol Inhaler 2 puff INHALATION BID amlodipine 2.5 mg Tablet 2.5 mg PO DAILY levothyroxine 88 mcg Tablet 88 mcg PO DAILY@0600 loratadine 10 mg Tablet 10 mg PO DAILY cholecalciferol (vitamin D3) 10 mcg (400 unit) Tablet 20 mcg PO DAILY polyvinyl alcohol [Artificial Tears (polyvin alc)] 1.4 % Drops 1 drp OPHTHALMIC (EYE) BID ferrous sulfate 325 mg (65 mg iron) Tablet,Delayed Release (Dr/Ec) 325 mg PO BID risperidone 0.5 mg Tablet 0.5 mg PO BID simethicone 125 mg Tablet,Chewable 125 mg PO TID buspirone 5 mg Tablet 5 mg PO TID erythromycin 5 mg/gram (0.5 %) Ointment 0.25 inch ophthalmic (eye) DAILY PRN (Reason: affected eyelids) Rx Instructions: 1/4 inch calcium carbonate [Calcium 500] 500 mg calcium (1,250 mg) Tablet,Chewable 500 mg PO BID acetaminophen 325 mg Tablet 650 mg PO Q4H PRN (Reason: temp/pain ) guaifenesin 100 mg/5 mL Liquid 200 mg PO Q4H PRN (Reason: Cough) magnesium hydroxide [Milk of Magnesia] 400 mg/5 mL Suspension 30 ml PO DAILY PRN (Reason: Constipation) alum-mag hydroxide-simeth [Mintox] 200-200-20 mg/5 mL Suspension 30 ml PO Q4H PRN (Reason: gi distress) Rx Instructions: administer between meals and at bedtime albuterol sulfate 90 mcg/actuation Hfa Aerosol Inhaler 1 inh INHALATION Q4H PRN (Reason: Shortness Of Breath Or Wheezing) Discharge Orders: Discharge Order (Routine); Ordered 04/22/23 Ordered By: Luis Menon Diet: Advance to usual diet Activity on Discharge: As tolerated Stand Alone Forms: Patient Portal Discharge page Care Plan Goals: Patient was admitted for Acute hypoxic respiratory failure ,toxic metabolic ence phalopathy and sepsis secondary to pneumonia and found to have Staph Aureus (MSSA) bactermia: Started on IV antibiotics, blood cultures sent: Patient seems to be improved significantly, blood culture positive for staph aureus.. Goal is halfway antibiotics to eradicate Staph Health Concerns: Sepsis, Staph aureus bacteremia, pneumonia Plan of Treatment: IV cefazolin for 6 weeks via a PICC line, until May 26, 2023 Check CBC and BMP weekly (on monday) while on antibiotics Assessment: See above Patient Instructions: Pneumonia (DC)
--- NOTE | 2023-04-20 11:30 | HO.PM.IMPN ---
Subjective Subjective Date of Service: 04/20/23 Interval History: f/u on mssa bacteremia, no new complaint. Blood noted in ostomy bag yesterday, area of oozing was sutured Physical Exam Vital Signs: Vital Signs: Last Vital Signs Temp 97 F 04/20/23 07:14 Pulse 77 04/20/23 07:14 Resp 12 04/20/23 07:14 BP 153/67 H 04/20/23 07:14 Pulse Ox 95 04/20/23 07:14 O2 Del Method Nasal Cannula 04/20/23 07:14 O2 Flow Rate 1 04/20/23 07:14 FiO2 40 04/09/23 15:06 BMI result Body Mass Index 26.6 Const: Other: General: AO X 3, no acute distress Resp: CTA bilateral CVS: S1,S2,RRR GI: +BS, NT, no distention, ostomy bag with residual blood Skin: No rash Neuro: motor grossly intact Psych: appropriate affect Objective Data Active Medications Acetaminophen (Acetaminophen 325 Mg Tablet) 650 mg PO Q6H PRN PRN Reason: Pain, Mild (Pain Scale 1-3) Last Admin: 04/19/23 19:55 Dose: 650 mg Documented By: MAXIM Al Hydroxide/Mg Hydroxide (Magnesium Hydrox/Alum Hydrox 30 Ml Oral.Susp) 30 ml PO Q4H PRN PRN Reason: gi distress Last Admin: 04/13/23 21:48 Dose: 30 ml Documented By: GERMAIN Albuterol Sulfate (Albuterol Sulfate 90 Mcg 8 Gm Inhaler) 1 puff INHALE Q4H PRN PRN Reason: Shortness Of Breath Or Wheezing Albuterol/Ipratropium (Albuterol/Iprat 2.5/0.5mg 3 Ml Ampul.Neb) 3 ml INHALE RQ4H WHILE AWAKE PRN PRN Reason: Shortness of Breath/Wheezing Last Admin: 04/09/23 20:12 Dose: 3 ml Documented By: JOHN Artificial Tears (Artificial Tears 15 Ml Drops) 1 drop EYE-BOTH BID [facility] Last Admin: 04/20/23 08:23 Dose: Not Given Documented By: BEKA Non-Admin Reason: Patient Refused Benzonatate (Benzonatate 100 Mg Capsule) 100 mg PO TID [facility] Last Admin: 04/20/23 08:21 Dose: 100 mg Documented By: BEKA Buspirone HCl (Buspirone Hcl 5 Mg Tablet) 5 mg PO TID [facility] Last Admin: 04/20/23 08:21 Dose: 5 mg Documented By: BEKA Calcium Carbonate (Calcium Carbonate 500 Mg Tablet) 500 mg PO BID [facility] Last Admin: 04/20/23 08:21 Dose: 500 mg Documented By: BEKA Heparin Sodium (Porcine) 50 (units/ Sodium Chloride 5 ml) 0 units IVFLUSH QSHIFT [facility] Last Admin: 04/20/23 08:22 Dose: 50 unit Documented By: BEKA Docusate Sodium (Docusate Sodium 100 Mg Capsule) 100 mg PO DAILY PRN PRN Reason: Constipation Ferrous Sulfate (Ferrous Sulfate 324 Mg Tablet.Dr) 324 mg PO BID [facility] Last Admin: 04/20/23 08:21 Dose: 324 mg Documented By: BEKA Fluticasone Propionate (Fluticasone Propionate 100 Mcg Blst.W.Dev) 2 puff INHALE BID [facility] Last Admin: 04/20/23 08:00 Dose: Not Given Documented By: DANILO Non-Admin Reason: Patient Asleep Guaifenesin/Dextromethorphan (Guaifenesin Dm 200/20/10 Ml 10 Ml Syrup) 10 ml PO Q4H PRN PRN Reason: Cough Last Admin: 04/20/23 05:38 Dose: 10 ml Documented By: MAXIM Comments: pt c/o a cough and requesting cough syrup. Cefazolin Sodium/Dextrose (Ancef) 2 gm in 50 mls @ 100 mls/hr IV Q12H [facility] Last Infusion: 04/20/23 06:10 Dose: Infused Documented By: MAXIM Levothyroxine Sodium (Levothyroxine Sodium 88 Mcg Tablet) 88 mcg PO DAILY@0600 [facility] Last Admin: 04/20/23 05:36 Dose: 88 mcg Documented By: MAXIM Lidocaine (Lidocaine 4 % Patch Adh..Patch) 1 patch TRANSDERMA DAILY [facility]; Protocol Last Admin: 04/20/23 10:47 Dose: 1 patch Documented By: BEKA Loratadine (Loratadine 10 Mg Tablet) 10 mg PO DAILY [facility] Last Admin: 04/20/23 08:21 Dose: 10 mg Documented By: BEKA Magnesium Hydroxide (Milk Of Magnesia 30 Ml Oral.Susp) 30 ml PO DAILY PRN PRN Reason: Constipation Melatonin (Melatonin 3 Mg Tablet) 6 mg PO BEDTIME PRN PRN Reason: Insomnia Last Admin: 04/19/23 19:56 Dose: 6 mg Documented By: MAXIM Omeprazole (Omeprazole 20 Mg Capsule.Dr) 20 mg PO DAILY@0630 [facility] Last Admin: 04/20/23 05:36 Dose: 20 mg Documented By: MAXIM Ondansetron HCl (Ondansetron Hcl 4 Mg/2 Ml Vial) 4 mg IVPUSH Q8H PRN PRN Reason: Nausea and Vomiting Prednisone (Prednisone 20 Mg Tablet) 40 mg PO DAILY [facility] Last Admin: 04/20/23 08:22 Dose: 40 mg Documented By: BEKA Risperidone (Risperidone 0.5 Mg Tablet) 0.5 mg PO BID [facility] Last Admin: 04/20/23 08:21 Dose: 0.5 mg Documented By: BEKA Simethicone (Simethicone 80 Mg Tab.Chew) 80 mg PO TID [facility] Last Admin: 04/20/23 08:21 Dose: 80 mg Documented By: BEKA Sodium Chloride (0.9 % Sodium Chloride Flush 3 Ml Syringe) 3 ml IVFLUSH QSHIFT [facility] Last Admin: 04/20/23 08:22 Dose: 3 ml Documented By: BEKA Vitamin D (Cholecalciferol (Vitamin D3) 10 Mcg Tablet) 20 mcg PO DAILY [facility] Last Admin: 04/20/23 08:21 Dose: 20 mcg Documented By: BEKA Labs 04/19/23 11:58 04/16/23 05:46 Labs: Laboratory Results - last 24 hr 04/19/23 11:58 MCV 104.2 H MCH 33.4 H MCHC 32.1 RDW 18.8 H Plt Count 76 L D MPV 13.3 H Absolute Nucleated RBC 0.000 Nucleated RBC % (auto) 0.0 Blood Type A Positive Antibody Screen NEGATIVE Assessment and Plan (1) Sepsis: Status: Acute (2) Pneumonia: Status: Acute (3) Staph infection: Status: Acute Plan 88-year-old female with a PMH significant for HTN, hypothyroidism, anemia of chronic disease, CKD 3, MDD, and with colostomy in place who presents to the ED from [facility] for evaluation of cough, SOB, and weakness. Pt was admitted for acute hypoxic respiratory failure in the setting of nosocomial acquired pneumonia with sepsis and ultimately found to have Staph bacteremia. Acute hypoxic respiratory failure in the setting of nosocomial pneumonia/staph aureus bacteremia She has made signficant improvment, however still needs oxygen continue Abx (Kefzol) for 6 weeks per ID recommendation, get echo to rule out vegetation, PICC line inserted 04/18 UTI-completed treatment MELLO in setting of CKD 3, Cr within baseline, repeat lab tody HTN-acceptable control on current therapies -adjust as indicated Hypothyroidism-Continue levothyroxine. Blood in colostomy bag from a bleeding vessel at the edge of ostomy, sutured, H/H has been stable, repeat Drop in Platlet--? related to heparin, holding heparin, repeat platlets today DNR/DNI, Heparin need for inpt: bacteremia, getting IV Abx, and likely if no continuous issues with bleeding as above Quality Stroke Does the patient have a stroke diagnosis?: No VTE Prior VTE?: No VTE Risk Level:: Medical - moderate - high VTE Device Contraindication: Treatment Not Indicated VTE Drug Contraindication: N/A - Med Ordered
[2023-04-20 12:51] LABS: Hematocrit 27.3 % (37.0-47.0); Hemoglobin 8.9 g/dl (12.0-16.0); Mean Corpuscular HGB Conc 32.6 g/dl (31.0-35.0); Mean Corpuscular Hemoglobin 33.2 pg (27.0-33.0); Mean Corpuscular Volume 101.9 fL (80.0-98.0); Mean Platelet Volume 12.6 fL (9.4-12.3); NRBC Pct Auto 0.2 /100WBC (0.0-0.2); Platelet Count 104 X10*3/uL (160-400); Red Blood Count 2.68 X10*6/uL (4.20-5.50); White Blood Count 10.8 X10*3/uL (4.8-10.8)
[2023-04-20 13:03] LABS: Anion Gap 12 (12-20); Blood Urea Nitrogen 57 mg/dL (9-16); Calcium 10.3 mg/dL (8.4-10.2); Carbon Dioxide 20 mmol/L (22-29); Chloride 107 mmol/L (96-108); Creatinine Clr Calc Pharmacy 20.8; Estimated Glomerular Filt Rate 29; Glucose Random 165 mg/dL (60-115); Potassium 5.4 mmol/L (3.3-5.1); Sodium 134 mmol/L (135-145)
--- NOTE | 2023-04-20 14:34 | MHC.CM.PN ---
IMM 04/19/23 DP on hold today due to elevated K+ and decreased h/h. Aldair Levi Patients family has been notified as well.lat[place] have been notified.
[2023-04-20 15:10] VITALS: BP 130/58; PULSE 76; RESP 14; TEMP 36.4; O2SAT 99
[2023-04-20] MEDS: Sodium Zirconium Cyclosilicate 10 GM POWD.PACK PO (15:19)
[2023-04-20 19:11] VITALS: BP 137/63; PULSE 77; RESP 16; TEMP 36.7; O2SAT 95
[2023-04-20] MEDS: Fluticasone Propionate 100 MCG BLST.W.DEV 2 PUFF INHALE (19:33)
[2023-04-20 19:34] VITALS: PULSE 77; RESP 16; O2SAT 95
[2023-04-20] MEDS: Melatonin 3 MG TABLET 6 MG PO (19:36)
[2023-04-21 04:00] VITALS: BP 150/62; PULSE 84; RESP 16; TEMP 36.4; O2SAT 92
[2023-04-21] MEDS: Magnesium Hydrox/Alum Hydrox 30 ML ORAL.SUSP PO (04:23)
[2023-04-21] MEDS: Omeprazole 20 MG CAPSULE.DR PO (05:43)
[2023-04-21] MEDS: ceFAZolin Sodium/Dextrose,Iso 2 GM/50 ML PIGGYBACK IV ×2 (05:43→17:41)
[2023-04-21] MEDS: Levothyroxine Sodium 88 MCG TABLET PO (05:44)
[2023-04-21 07:25] VITALS: BP 123/56; PULSE 77; RESP 12; TEMP 36; O2SAT 96
[2023-04-21 07:33] VITALS: PULSE 77; RESP 12; O2SAT 93
[2023-04-21] MEDS: Fluticasone Propionate 100 MCG BLST.W.DEV 2 PUFF INHALE (07:33)
[2023-04-21] MEDS: Heparin Sodium,Porcine Flush 50 UNITS, 0.9 % Sodium Chloride Flush 5 ML IVFLUSH ×2 (08:27→18:07)
[2023-04-21] MEDS: Cholecalciferol (Vitamin D3) 10 MCG TABLET 20 MCG PO (08:30)
[2023-04-21] MEDS: Loratadine 10 MG TABLET PO (08:31)
[2023-04-21] MEDS: Ferrous Sulfate 324 MG TABLET.DR PO ×2 (08:31→20:00)
[2023-04-21] MEDS: Simethicone 80 MG TAB.CHEW PO ×3 (08:31→20:00)
[2023-04-21] MEDS: risperiDONE 0.5 MG TABLET PO ×2 (08:31→20:00)
[2023-04-21] MEDS: predniSONE 20 MG TABLET 40 MG PO (08:31)
[2023-04-21] MEDS: Lidocaine 4 % Patch ADH..PATCH 1 PATCH TRANSDERMA (08:31)
[2023-04-21] MEDS: busPIRone HCl 5 MG TABLET PO ×3 (08:31→20:00)
[2023-04-21 08:50] LABS: Hematocrit 25.6 % (37.0-47.0); Hemoglobin 8.2 g/dl (12.0-16.0); Mean Corpuscular Hemoglobin 32.9 pg (27.0-33.0); Mean Corpuscular Volume 102.8 fL (80.0-98.0); Mean Platelet Volume 12.5 fL (9.4-12.3); Platelet Count 90 X10*3/uL (160-400); Red Blood Count 2.49 X10*6/uL (4.20-5.50); Red Cell Distribution Width 19.1 % (11.0-16.0); White Blood Count 10.2 X10*3/uL (4.8-10.8)
[2023-04-21 09:01] LABS: Anion Gap 11 (12-20); Blood Urea Nitrogen 66 mg/dL (9-16); Calcium 9.9 mg/dL (8.4-10.2); Carbon Dioxide 20 mmol/L (22-29); Chloride 107 mmol/L (96-108); Estimated Glomerular Filt Rate 24; Glucose Random 156 mg/dL (60-115); Potassium 5.2 mmol/L (3.3-5.1); Sodium 133 mmol/L (135-145)
[2023-04-21] MEDS: 0.9 % Sodium Chloride Flush 3 ML SYRINGE IVFLUSH ×3 (09:05→20:05)
[2023-04-21] MEDS: Sodium Zirconium Cyclosilicate 10 GM POWD.PACK PO (12:13)
--- NOTE | 2023-04-21 12:25 | PC.NURSE ---
Pt tolerated medications crushed in pudding, ostomy bag emptied no blood noted, Pt denies pain or SOB, Pt up OOB to chair for lunch, remains on 1L o2 via NC, o2 saturation 96%, respirations even and unlabored, call darby within reach.
[2023-04-21 14:20] VITALS: PULSE 77
[2023-04-21] MEDS: guaiFENesin DM 200/20/10 ML 10 ML SYRUP PO (14:20)
[2023-04-21 15:23] VITALS: BP 154/68; PULSE 81; RESP 20; TEMP 36; O2SAT 96
--- NOTE | 2023-04-21 15:25 | HO.PM.IMPN ---
Subjective Subjective Date of Service: 04/21/23 Interval History: f/u on mssa bacteremia, no new complaint. No further blood in the ostomy bag, K is slightly high but better and renal function is sligtly up Physical Exam Vital Signs: Vital Signs: Last Vital Signs Temp 96.8 F 04/21/23 15:23 Pulse 81 04/21/23 15:23 Resp 20 04/21/23 15:23 BP 154/68 H 04/21/23 15:23 Pulse Ox 96 04/21/23 15:23 O2 Del Method Nasal Cannula 04/21/23 15:23 O2 Flow Rate 1.0 04/21/23 15:23 FiO2 40 04/09/23 15:06 BMI result Body Mass Index 26.6 Const: Other: General: AO X 3, no acute distress Resp: CTA bilateral CVS: S1,S2,RRR GI: +BS, NT, no distention, ostomy bag with residual blood Skin: No rash Neuro: motor grossly intact Psych: appropriate affect Objective Data Active Medications Acetaminophen (Acetaminophen 325 Mg Tablet) 650 mg PO Q6H PRN PRN Reason: Pain, Mild (Pain Scale 1-3) Last Admin: 04/19/23 19:55 Dose: 650 mg Documented By: MAXIM Al Hydroxide/Mg Hydroxide (Magnesium Hydrox/Alum Hydrox 30 Ml Oral.Susp) 30 ml PO Q4H PRN PRN Reason: gi distress Last Admin: 04/21/23 04:23 Dose: 30 ml Documented By: JULIAILNorbert Albuterol Sulfate (Albuterol Sulfate 90 Mcg 8 Gm Inhaler) 1 puff INHALE Q4H PRN PRN Reason: Shortness Of Breath Or Wheezing Artificial Tears (Artificial Tears 15 Ml Drops) 1 drop EYE-BOTH BID [facility] Last Admin: 04/21/23 08:50 Dose: Not Given Documented By: EBONIE Non-Admin Reason: Patient Refused Benzonatate (Benzonatate 100 Mg Capsule) 100 mg PO TID [facility] Last Admin: 04/21/23 14:08 Dose: Not Given Documented By: MAYNOR Non-Admin Reason: mneds crushed Buspirone HCl (Buspirone Hcl 5 Mg Tablet) 5 mg PO TID [facility] Last Admin: 04/21/23 14:14 Dose: 5 mg Documented By: MAYNOR Calcium Carbonate (Calcium Carbonate 500 Mg Tablet) 500 mg PO BID [facility] Last Admin: 04/21/23 08:31 Dose: 500 mg Documented By: EBONIE Heparin Sodium (Porcine) 50 (units/ Sodium Chloride 5 ml) 0 units IVFLUSH QSHIFT [facility] Last Admin: 04/21/23 08:27 Dose: 50 unit Documented By: EBONIE Docusate Sodium (Docusate Sodium 100 Mg Capsule) 100 mg PO DAILY PRN PRN Reason: Constipation Ferrous Sulfate (Ferrous Sulfate 324 Mg Tablet.Dr) 324 mg PO BID [facility] Last Admin: 04/21/23 08:31 Dose: 324 mg Documented By: EBONIE Fluticasone Propionate (Fluticasone Propionate 100 Mcg Blst.W.Dev) 2 puff INHALE BID [facility] Last Admin: 04/21/23 07:33 Dose: 2 puff Documented By: DANILO Guaifenesin/Dextromethorphan (Guaifenesin Dm 200/20/10 Ml 10 Ml Syrup) 10 ml PO Q4H PRN PRN Reason: Cough Last Admin: 04/21/23 14:20 Dose: 10 ml Documented By: MAYNOR Cefazolin Sodium/Dextrose (Ancef) 2 gm in 50 mls @ 100 mls/hr IV Q12H [facility] Last Infusion: 04/21/23 06:17 Dose: Infused Documented By: MEL Levothyroxine Sodium (Levothyroxine Sodium 88 Mcg Tablet) 88 mcg PO DAILY@0600 [facility] Last Admin: 04/21/23 05:44 Dose: 88 mcg Documented By: MEL Lidocaine (Lidocaine 4 % Patch Adh..Patch) 1 patch TRANSDERMA DAILY [facility]; Protocol Last Admin: 04/21/23 08:31 Dose: 1 patch Documented By: EBONIE Loratadine (Loratadine 10 Mg Tablet) 10 mg PO DAILY [facility] Last Admin: 04/21/23 08:31 Dose: 10 mg Documented By: EBONIE Magnesium Hydroxide (Milk Of Magnesia 30 Ml Oral.Susp) 30 ml PO DAILY PRN PRN Reason: Constipation Melatonin (Melatonin 3 Mg Tablet) 6 mg PO BEDTIME PRN PRN Reason: Insomnia Last Admin: 03/14/24 19:36 Dose: 6 mg Documented By: MEL Omeprazole (Omeprazole 20 Mg Capsule.) 20 mg PO DAILY@0630 [facility] Last Admin: 04/21/23 05:43 Dose: 20 mg Documented By: MEL Ondansetron HCl (Ondansetron Hcl 4 Mg/2 Ml Vial) 4 mg IVPUSH Q8H PRN PRN Reason: Nausea and Vomiting Prednisone (Prednisone 20 Mg Tablet) 40 mg PO DAILY [facility] Last Admin: 04/21/23 08:31 Dose: 40 mg Documented By: EBONIE Risperidone (Risperidone 0.5 Mg Tablet) 0.5 mg PO BID [facility] Last Admin: 04/21/23 08:31 Dose: 0.5 mg Documented By: EBONIE Simethicone (Simethicone 80 Mg Tab.Chew) 80 mg PO TID [facility] Last Admin: 04/21/23 14:14 Dose: 80 mg Documented By: MAYNOR Sodium Chloride (0.9 % Sodium Chloride Flush 3 Ml Syringe) 3 ml IVFLUSH QSHIFT [facility] Last Admin: 04/21/23 09:05 Dose: 3 ml Documented By: MAYNOR Vitamin D (Cholecalciferol (Vitamin D3) 10 Mcg Tablet) 20 mcg PO DAILY [facility] Last Admin: 04/21/23 08:30 Dose: 20 mcg Documented By: EBONIE Labs 04/21/23 08:24 04/21/23 08:24 Labs: Laboratory Results - last 24 hr 04/21/23 08:24 MCV 102.8 H MCH 32.9 MCHC 32.0 RDW 19.1 H Plt Count 90 L MPV 12.5 H Absolute Nucleated RBC 0.000 Nucleated RBC % (auto) 0.0 Anion Gap 11 L Estim Creat Clear Calc 18.0 Estimated GFR 24 Random Glucose 156 H Calcium 9.9 Assessment and Plan (1) Sepsis: Status: Acute (2) Pneumonia: Status: Acute (3) Staph infection: Status: Acute Plan 88-year-old female with a PMH significant for HTN, hypothyroidism, anemia of chronic disease, CKD 3, MDD, and with colostomy in place who presents to the ED from [facility] for evaluation of cough, SOB, and weakness. Pt was admitted for acute hypoxic respiratory failure in the setting of nosocomial acquired pneumonia with sepsis and ultimately found to have Staph bacteremia. Acute hypoxic respiratory failure in the setting of nosocomial pneumonia/staph aureus bacteremia She has made signficant improvment, however still needs oxygen continue Abx (Kefzol) for 6 weeks per ID recommendation, get echo to rule out vegetation, PICC line inserted 04/18 UTI-completed treatment MELLO in setting of CKD 3, Cr is slightly worse and associated with Hyperkalemia, given Lokelma and will repeat tomorrow, also getting bladder US to rule out obstruction, HTN-acceptable control on current therapies -adjust as indicated Hypothyroidism-Continue levothyroxine. Blood in colostomy bag from a bleeding vessel at the edge of ostomy, sutured, H/H has been stable, repeat Drop in Platlet--? related to heparin, holding heparin, plat is been up and down, will continue to hold heparin and monitor DNR/DNI, Heparin need for inpt: bacteremia, getting IV Abx, and likely if no continuous issues with bleeding as above Quality Stroke Does the patient have a stroke diagnosis?: No VTE Prior VTE?: No VTE Risk Level:: Medical - moderate - high VTE Device Contraindication: Treatment Not Indicated VTE Drug Contraindication: N/A - Med Ordered
--- NOTE | 2023-04-21 15:46 | MHC.CM.PN ---
CM RECEIVED A CALL FROM PTS DAUGHTER, THEODORA RAMIREZ ([phone]) SHE SAYS SHE WILL BE COMING TO SEE THE PT TOMORROW IF SHE IS DISCHARGED SHE WANTS TO GO TO [place] AND GET SOME OF THE PTS CLOTHES TO BRING TO THE STR PER DISCUSSION, CM WILL CONTACT HER ONCE DC STATUS IS CONFIRMED TOMORROW DCP: STR AT [facility] TRANSPORT
[2023-04-21 19:25] VITALS: BP 145/65; PULSE 78; RESP 16; TEMP 36.4; O2SAT 93
[2023-04-22] MEDS: Heparin Sodium,Porcine Flush 50 UNITS, 0.9 % Sodium Chloride Flush 5 ML IVFLUSH ×3 (00:04→15:38)
[2023-04-22 04:00] VITALS: BP 116/62; PULSE 72; RESP 16; TEMP 36.4; O2SAT 94
[2023-04-22] MEDS: ceFAZolin Sodium/Dextrose,Iso 2 GM/50 ML PIGGYBACK IV (06:05)
[2023-04-22] MEDS: Omeprazole 20 MG CAPSULE.DR PO (06:09)
[2023-04-22] MEDS: Levothyroxine Sodium 88 MCG TABLET PO (06:09)
[2023-04-22 08:00] VITALS: BP 159/67; PULSE 86; RESP 17; TEMP 36.4; O2SAT 95
[2023-04-22] MEDS: Fluticasone Propionate 100 MCG BLST.W.DEV 2 PUFF INHALE (08:21)
[2023-04-22 08:24] VITALS: PULSE 69; RESP 16; O2SAT 95
[2023-04-22 08:34] LABS: Hematocrit 24.9 % (37.0-47.0); Mean Corpuscular HGB Conc 32.1 g/dl (31.0-35.0); Mean Corpuscular Hemoglobin 32.8 pg (27.0-33.0); Mean Platelet Volume 12.7 fL (9.4-12.3); Red Blood Count 2.44 X10*6/uL (4.20-5.50); Red Cell Distribution Width 19.2 % (11.0-16.0); White Blood Count 8.1 X10*3/uL (4.8-10.8)
[2023-04-22 08:35] LABS: Anion Gap 11 (12-20); Blood Urea Nitrogen 67 mg/dL (9-16); Calcium 9.5 mg/dL (8.4-10.2); Carbon Dioxide 21 mmol/L (22-29); Chloride 109 mmol/L (96-108); Creatinine Clr Calc Pharmacy 19.7; Estimated Glomerular Filt Rate 27; Glucose Random 103 mg/dL (60-115); Platelet Count 76 X10*3/uL (160-400); Sodium 136 mmol/L (135-145)
[2023-04-22] MEDS: Lidocaine 4 % Patch ADH..PATCH 1 PATCH TRANSDERMA (09:19)
[2023-04-22] MEDS: Cholecalciferol (Vitamin D3) 10 MCG TABLET 20 MCG PO (09:21)
[2023-04-22] MEDS: predniSONE 20 MG TABLET 40 MG PO (09:21)
[2023-04-22] MEDS: Simethicone 80 MG TAB.CHEW PO ×2 (09:21→15:38)
[2023-04-22] MEDS: busPIRone HCl 5 MG TABLET PO ×2 (09:21→15:38)
[2023-04-22] MEDS: Loratadine 10 MG TABLET PO (09:21)
[2023-04-22] MEDS: risperiDONE 0.5 MG TABLET PO (09:21)
[2023-04-22] MEDS: 0.9 % Sodium Chloride Flush 3 ML SYRINGE IVFLUSH (09:37)
[2023-04-22] MEDS: guaiFENesin DM 200/20/10 ML 10 ML SYRUP PO (09:40)
--- NOTE | 2023-04-22 14:24 | MHC.CM.PN ---
Addendum entered by Chiara Santos 04/22/23 15:22: CM SPOKE TO PTS DAUGHTERSILVA WHO IS AWARE PT WILL TRANSFER TO [facility] THIS AFTERNOON SHE SAYS SHE WILL VISIT PT AT THE [facility] TOMORROW WITH SOME BELONGINGS TRANSPORT BOOKED WITH [facility] FOR 1630 HOURS Original Note: PT EXPECTED TO DC TODAY TO [facility] FOR STR CM CALLED PTS DAUGHTERSILVA [phone] AND LEFT A WITH NOTICE OF PLAN TO DC
[2023-04-22 15:26] VITALS: BP 150/65; PULSE 79; RESP 17; TEMP 36.2; O2SAT 95
== END 2023-04-22 17:06 | disposition skilled nursing facility (03) | DRG 853 ==
LOC: HO.ED 11:30 → HO.EDOVER 12:27 → HO.S3 14:46
PROVIDERS: Hospitalist; Internal Medicine; Physician Assistant; Admitting Provider Student in an Organized Health Care Education/Training Program; Emergency Provider Emergency Medicine Emergency Medical Services; Visit Provider Internal Medicine
DX: A41.9 Sepsis, unspecified organism (principal); J18.9 Pneumonia, unspecified organism; J96.01 Acute respiratory failure with hypoxia; N39.0 Urinary tract infection, site not specified; N17.9 Acute kidney failure, unspecified; K94.01 Colostomy hemorrhage; Z66 Do not resuscitate; D69.6 Thrombocytopenia, unspecified; B96.20 Unspecified Escherichia coli [E. coli] as the cause of diseases classified elsewhere; B95.61 Methicillin susceptible Staphylococcus aureus infection as the cause of diseases classified elsewhere; Y95 Nosocomial condition; I12.9 Hypertensive chronic kidney disease with stage 1 through stage 4 chronic kidney disease, or unspecified chronic kidney disease; N18.30 Chronic kidney disease, stage 3 unspecified; E03.9 Hypothyroidism, unspecified; Z20.822 Contact with and (suspected) exposure to COVID-19; Z88.2 Allergy status to sulfonamides; Z79.890 Hormone replacement therapy; Z79.899 Other long term (current) drug therapy
CPT/HCPCS: 0241U; 36415; 36573; 70450; 71045; 76770; 80048; 80053; 80202; 81001; 82565; 83605; 83735; 85007; 85025; 85027; 86850; 86900; 86901; 87040; 87077; 87086; 87088; 87186; 87205; 87633; 87640; 87641; 93005; 93306; 97110; 97116; 97162; 99285; C1751; J0456; J0690; J0696; J1642; J1644; J2543; J2930; J3370; J3371; Q9957

== ENCOUNTER → 2023-04-07 10:17 | Outpatient (BNV) | payer MEDICARE, MEDICAID, SELFPAY | PROVIDERS: Admitting Provider Student in an Organized Health Care Education/Training Program; Emergency Provider Emergency Medicine Emergency Medical Services; Visit Provider Internal Medicine | DX: R06.02 Shortness of breath (principal) | CPT/HCPCS: 93010 ==

== ENCOUNTER 2023-04-07 12:06 | Outpatient (BNV) | payer MEDICARE, MEDICAID, SELFPAY | END 2023-04-18 13:00 | PROVIDERS: Admitting Provider Student in an Organized Health Care Education/Training Program; Emergency Provider Emergency Medicine Emergency Medical Services; Visit Provider Internal Medicine Cardiovascular Disease | DX: I35.0 Nonrheumatic aortic (valve) stenosis (principal) | CPT/HCPCS: 93306 ==

== ENCOUNTER → 2023-04-07 12:06 | Outpatient (BNV) | payer MEDICARE, MEDICAID, SELFPAY | PROVIDERS: Admitting Provider Student in an Organized Health Care Education/Training Program; Emergency Provider Emergency Medicine Emergency Medical Services; Visit Provider Student in an Organized Health Care Education/Training Program | DX: K94.00 Colostomy complication, unspecified (principal) | CPT/HCPCS: 99223; 99232; 99233; 99239 ==

== ENCOUNTER → 2023-04-07 12:06 | Outpatient (BNV) | payer MEDICARE, MEDICAID, SELFPAY | PROVIDERS: Admitting Provider Student in an Organized Health Care Education/Training Program; Emergency Provider Emergency Medicine Emergency Medical Services; Visit Provider Surgery | DX: K94.00 Colostomy complication, unspecified (principal) | CPT/HCPCS: 17250; 99222; 99232 ==

== ENCOUNTER → 2023-04-07 12:06 | Outpatient (BNV) | payer MEDICARE, MEDICAID, SELFPAY | PROVIDERS: Admitting Provider Student in an Organized Health Care Education/Training Program; Emergency Provider Emergency Medicine Emergency Medical Services; Visit Provider Internal Medicine | DX: N39.0 Urinary tract infection, site not specified (principal); R09.02 Hypoxemia | CPT/HCPCS: 99222 ==

== ENCOUNTER 2023-06-03 | Outpatient (REF) | payer SELFPAY | END 2023-06-03 00:01 | disposition home or self-care (01) | LOC: HO.MMNH2L | PROVIDERS: Visit Provider Family Medicine | DX: Z13.89 Encounter for screening for other disorder (principal) ==

== ENCOUNTER 2023-08-11 22:04 | Emergency (ER) | payer MEDICARE, MEDICAID, SELFPAY ==
--- NOTE | ~2023-08-11 | CT_ITS ---
EXAMINATION: CT HEAD WITHOUT CONTRAST CT CERVICAL SPINE WITHOUT CONTRAST CLINICAL INFORMATION: Fall. Head strike. Neck pain COMPARISON: CT head April 12, 2023 TECHNIQUE: Imaging was performed from the skull base to vertex without intravenous administration of contrast. In addition, helical noncontrast CT imaging was acquired through the cervical spine and source images were reviewed along with axial reconstructions and sagittal and coronal MPRs. [This CT examination was performed using dose optimization techniques as appropriate, variously including the following: *Automated exposure control *Adjustment of mA and/or kV according to patient size (this includes techniques or standardized protocols for targeted exams where dose is matched to indication/reason for exam; i.e. extremities or head) *Use of iterative reconstruction technique] DLP: 908 mGy-cm FINDINGS: HEAD: No intracranial mass, hemorrhage, or midline shift is visualized. There is generalized global volume loss. There is marked prominence of the ventricles and the sulci . There is mild hypodensity of the periventricular white matter due to chronic small vessel ischemic disease. There are vascular calcifications of the internal carotid arteries bilaterally. No extra-axial collections are identified. The paranasal sinuses and mastoid air cells are well aerated. CERVICAL SPINE: There is no evidence of acute cervical spine fracture. Vertebral bodies remain normal in height. Cervical vertebrae have normal alignment. There is multilevel degenerative spondylosis of the cervical spine with disc height narrowing and endplate spurs and facet joint arthrosis No pre- or paravertebral soft tissue abnormality is identified. Nodular linear scarring at right lung apex. CT/CT cervical spine wo IV con IMPRESSION: 1. No acute intracranial pathology. 2. No CT evidence of acute cervical spine fracture or traumatic subluxation
[2023-08-11 22:20] VITALS: BP 132/74; PULSE 90; O2SAT 97
--- NOTE | 2023-08-11 22:27 | ED_ITS ---
HPI - Head Injury General Chief complaint: Fall Stated complaint: fall w/ head strike Time Seen by Provider: 08/11/23 22:26 Source: patient Mode of arrival: ambulatory Limitations: no limitations History of Present Illness ED Provider: jorge PERSAUD Narrative: Patient 88-year-old retirement resident came here after mechanical fall was in the bathroom toilet got up lost balance fell hitting her head to the ground no loss of consciousness patient is at her baseline no other injuries Related Data Home Medications ?Medication ?Instructions ?Recorded ?Confirmed acetaminophen 325 mg tablet 650 mg PO Q4H PRN temp/pain 04/07/23 04/07/23 albuterol sulfate 90 mcg/actuation 1 inh inhalation Q4H PRN Shortness 04/07/23 04/07/23 aerosol inhaler Of Breath Or Wheezing aluminum-mag hydroxide-simethicone 30 ml PO Q4H PRN gi distress 04/07/23 04/07/23 200 mg-200 mg-20 mg/5 mL oral susp (Mintox) amlodipine 2.5 mg tablet 2.5 mg PO DAILY 04/07/23 04/07/23 buspirone 5 mg tablet 5 mg PO TID 04/07/23 04/07/23 calcium carbonate (Calcium 500) 500 mg PO BID 04/07/23 04/07/23 cholecalciferol (vitamin D3) 10 20 mcg PO DAILY 04/07/23 04/07/23 mcg (400 unit) tablet erythromycin 5 mg/gram (0.5 %) eye 0.25 inch ophthalmic (eye) DAILY 04/07/23 04/07/23 ointment PRN affected eyelids ferrous sulfate 325 mg (65 mg 325 mg PO BID 04/07/23 04/07/23 iron) tablet,delayed release fluticasone propionate 110 2 puff inhalation BID 04/07/23 04/07/23 mcg/actuation HFA aerosol inhaler guaifenesin 100 mg/5 mL oral liquid 200 mg PO Q4H PRN Cough 04/07/23 04/07/23 levothyroxine 88 mcg tablet 88 mcg PO DAILY@0600 04/07/23 04/07/23 loratadine 10 mg tablet 10 mg PO DAILY 04/07/23 04/07/23 magnesium hydroxide 400 mg/5 mL 30 ml PO DAILY PRN Constipation 04/07/23 04/07/23 oral suspension (Milk of Magnesia) omeprazole 20 mg capsule,delayed 20 mg PO DAILY@0630 04/07/23 04/07/23 release polyvinyl alcohol 1.4 % eye drops 1 drp ophthalmic (eye) BID 04/07/23 04/07/23 (Artificial Tears (polyvinyl alcohol)) risperidone 0.5 mg tablet 0.5 mg PO BID 04/07/23 04/07/23 simethicone 125 mg chewable tablet 125 mg PO TID 04/07/23 04/07/23 Previous Rx's ?Medication ?Instructions ?Recorded cefazolin 2 gram solution for 2 g IV Q12H 36 days #72 ea 04/20/23 injection Allergies Allergy/AdvReac Type Severity Reaction Status Date / Time Sulfa (Sulfonamide Allergy Severe UNKNOWN Verified 08/11/23 23:04 Antibiotics) [SULFA (SULFONAMIDE ANTIBIOTICS)] Review of Systems Review of Systems: Yes all other systems are reviewed and are negative [facility] Past Medical History Medical History MDD (major depressive disorder) Anemia Hypothyroidism Essential (primary) hypertension CKD stage 3 due to type 1 diabetes mellitus Social History Social History Household Members: Other Do you presently have visiting nurse or other home services: Yes (Pt lives At [facility]) Alcohol intake: never Comment: 1:1 sitter Patient Tobacco Use Status: Never used Tobacco Advance Directives: Yes Advance Directives on File: Yes Advance Directives Date on File: 07/20/22 service: No Physical Exam Vital Signs: Vital Signs: Last Vital Signs Temp 97.5 F 08/11/23 23:04 Pulse 86 08/11/23 23:04 Resp 18 08/11/23 23:04 BP 159/60 H 08/11/23 23:04 Pulse Ox 97 08/11/23 23:04 O2 Del Method Room Air 08/11/23 23:04 BMI result Body Mass Index 28.9 Appearance: Alert. Oriented X3. No acute distress. Eyes: No pallor or icterus ENT: Pharynx normal. Oral Mucosa moist wall hematoma at the occipital area Neck: Normal inspection. Neck supple. CVS: Normal heart rate and rhythm. Pulses normal. Respiratory: No respiratory distress. Equal air entry bilateral, no wheezing/rales/rhonchi Abdomen: Soft and nontender. Bowel sounds are present, no mass palpable, no CVA tenderness colostomy bag in place Skin: Skin warm and dry. Normal skin color. Normal skin turgor. Extremities: No lower extremity edema. No calf tenderness pelvis stable Neuro: Oriented X 3. No motor deficit. No sensory deficit.No cerebellar signs , cranial nerves II-XII intact Medical Decision Making Medical Decision Making MDM Narrative: Patient is status post mechanical fall with stable vitals and stable sensorium no loss of consciousness CT scan negative of the head and cervical spine will discharge patient back to retirement for the mechanical fall Differential Diagnosis Differential Diagnoses: The differential diagnosis associated with the presentation includes Subdural bleed/subacromial bleed/skull fracture/cervical fracture Independent Interpretation I performed an independent interpretation of an: CT Scan Interpretation: Negative head CT and cervical spine CT Radiology Impression Discussion of test interpretation with radiology: I have reviewed the radiologist's reading. Discharge Plan Discharge Clinical Impression: Head injury Patient Disposition: Xfer SNF Transfer Details: Patient head CT and cervical spine CT negative patient is back to her baseline Instructions: Fall Prevention for Older Adults (ED) Additional Instructions: Care and cautions as advised Prescriptions: No Action omeprazole 20 mg Capsule,Delayed Release(Dr/Ec) 20 mg PO DAILY@0630 fluticasone propionate 110 mcg/actuation Hfa Aerosol Inhaler 2 puff INHALATION BID amlodipine 2.5 mg Tablet 2.5 mg PO DAILY levothyroxine 88 mcg Tablet 88 mcg PO DAILY@0600 loratadine 10 mg Tablet 10 mg PO DAILY cholecalciferol (vitamin D3) 10 mcg (400 unit) Tablet 20 mcg PO DAILY polyvinyl alcohol [Artificial Tears (polyvin alc)] 1.4 % Drops 1 drp OPHTHALMIC (EYE) BID ferrous sulfate 325 mg (65 mg iron) Tablet,Delayed Release (Dr/Ec) 325 mg PO BID risperidone 0.5 mg Tablet 0.5 mg PO BID simethicone 125 mg Tablet,Chewable 125 mg PO TID buspirone 5 mg Tablet 5 mg PO TID erythromycin 5 mg/gram (0.5 %) Ointment 0.25 inch ophthalmic (eye) DAILY PRN (Reason: affected eyelids) Rx Instructions: 1/4 inch calcium carbonate [Calcium 500] 500 mg calcium (1,250 mg) Tablet,Chewable 500 mg PO BID acetaminophen 325 mg Tablet 650 mg PO Q4H PRN (Reason: temp/pain ) guaifenesin 100 mg/5 mL Liquid 200 mg PO Q4H PRN (Reason: Cough) magnesium hydroxide [Milk of Magnesia] 400 mg/5 mL Suspension 30 ml PO DAILY PRN (Reason: Constipation) alum-mag hydroxide-simeth [Mintox] 200-200-20 mg/5 mL Suspension 30 ml PO Q4H PRN (Reason: gi distress) Rx Instructions: administer between meals and at bedtime albuterol sulfate 90 mcg/actuation Hfa Aerosol Inhaler 1 inh INHALATION Q4H PRN (Reason: Shortness Of Breath Or Wheezing) cefazolin 2 gram recon soln 2 g IV Q12H 36 Days Qty: 72 0RF Print Language: [place]i
--- NOTE | 2023-08-11 22:55 | MHC.EDTECH ---
Purewick placed on Pt and colostomy bag emptied by this tech per request of Pt. Call darby within reach.
[2023-08-11 23:04] VITALS: BP 159/60; PULSE 86; RESP 18; TEMP 36.4; O2SAT 97; BMI 28.9
[2023-08-12 01:28] VITALS: BP 137/40; PULSE 78; RESP 13; TEMP 36.3; O2SAT 98
[2023-08-12 01:42] VITALS: BP 137/40; PULSE 78; RESP 13; TEMP 36.3; O2SAT 98
== END 2023-08-12 01:54 | disposition skilled nursing facility (03) ==
PROVIDERS: Emergency Provider Internal Medicine
DX: S09.90XA Unspecified injury of head, initial encounter (principal); W18.11XA Fall from or off toilet without subsequent striking against object, initial encounter; Z91.81 History of falling; Y93.89 Activity, other specified; Y92.121 Bathroom in nursing home as the place of occurrence of the external cause; Y99.9 Unspecified external cause status
CPT/HCPCS: 70450; 72125; 99283; 99284

== ENCOUNTER 2023-10-03 20:40 | Emergency (ER) | payer MEDICARE, MEDICAID, SELFPAY ==
--- NOTE | ~2023-10-03 | XR_ITS ---
Examination: XR knee LT 4V (accession [id number]), XR foot LT min 3V (accession [id number]), XR foot RT min 3V (accession [id number]) Indication: fall Comparison: No pertinent prior studies are currently available for comparison. Technique: 4 views of the left knee with 3 views of each foot Findings: Left knee: No significant knee joint effusion. Bones are in normal anatomic alignment with no acute fracture or dislocation seen. Bones are relatively osteopenic. No cortical disruption or trabecular irregularity to suggest underlying subtle fracture. Extensive vascular calcification noted. Right foot: Bones are diffusely osteopenic. I do not appreciate any acute fracture or dislocation. Extensive vascular calcification seen. Degenerative changes more so on the first MTP joint. Left foot: Bones are normal anatomic alignment with no acute fracture or dislocation. Bones are diffusely osteopenic. Degenerative changes more so on the first MTP joint. Extensive vascular calcification. XR/XR foot LT min 3V Impression: Bones are diffusely osteopenic. I do not appreciate any acute fracture or dislocation. Degenerative changes. Extensive vascular calcification. Electronically signed by: Miguel Llanes MD 10/03/2023 09:54 PM EDT
--- NOTE | ~2023-10-03 | XR_ITS ---
Examination: XR knee LT 4V (accession [id number]), XR foot LT min 3V (accession [id number]), XR foot RT min 3V (accession [id number]) Indication: fall Comparison: No pertinent prior studies are currently available for comparison. Technique: 4 views of the left knee with 3 views of each foot Findings: Left knee: No significant knee joint effusion. Bones are in normal anatomic alignment with no acute fracture or dislocation seen. Bones are relatively osteopenic. No cortical disruption or trabecular irregularity to suggest underlying subtle fracture. Extensive vascular calcification noted. Right foot: Bones are diffusely osteopenic. I do not appreciate any acute fracture or dislocation. Extensive vascular calcification seen. Degenerative changes more so on the first MTP joint. Left foot: Bones are normal anatomic alignment with no acute fracture or dislocation. Bones are diffusely osteopenic. Degenerative changes more so on the first MTP joint. Extensive vascular calcification. XR/XR foot RT min 3V Impression: Bones are diffusely osteopenic. I do not appreciate any acute fracture or dislocation. Degenerative changes. Extensive vascular calcification. Electronically signed by: Miguel Llanes MD 10/03/2023 09:54 PM EDT
--- NOTE | ~2023-10-03 | CT_ITS ---
EXAMINATION: CT HEAD WITHOUT CONTRAST CT CERVICAL SPINE WITHOUT CONTRAST CLINICAL INFORMATION: Fall. Head and neck trauma.. COMPARISON: CT head and cervical spine from 08/11/2023. TECHNIQUE: Contiguous axial imaging was performed from the skull base to vertex without intravenous administration of contrast. Contiguous axial imaging was performed from the upper chest through the skull base without intravenous administration of contrast. Coronal and sagittal reformats were obtained at the acquisition workstation. This CT examination was performed using dose optimization techniques as appropriate, variously including the following: *Automated exposure control. *Adjustment of mA and/or kV according to patient size (this includes techniques or standardized protocols for targeted exams where dose is matched to indication/reason for exam; i.e. extremities or head). *Use of iterative reconstruction technique. DLP: 849 mGy-cm FINDINGS: Head: There is no evidence of acute intracranial hemorrhage or edematous territorial infarction. Nayak-white matter differentiation is preserved. Scattered and partially confluent hypoattenuation in the periventricular and deep white matter are consistent with moderate microangiopathy. Proportional prominence of the ventricles and sulcal spaces without evidence of obstructive hydrocephalus. No abnormal mass effect or midline shift. No extra-axial fluid collections. Calcific atherosclerotic disease of the intracranial internal carotid and vertebral arteries. No hyperdense vessels sign. No acute soft tissue or osseous abnormalities. Mild mucosal thickening of the paranasal sinuses. Moderate leftward nasal septal deviation. The mastoid air cells and middle ear cavities are clear. Bilateral lens extractions. Cervical Spine: The atlantooccipital and atlantoaxial articulations remain well aligned. Advanced degenerative arthropathy at the atlantodental articulation. Mild degenerative stepwise anterolisthesis of C4-C7. Otherwise, there is anatomic alignment of the vertebral bodies and posterior elements. No evidence of acute fracture or subluxation. The vertebral body heights are maintained. Moderate degenerative disc disease from C4-C7. Facet and uncovertebral joint arthropathy leads to osseous encroachment on the neural foramina from C3-C7. There is no prevertebral soft tissue swelling. The thyroid gland and remaining cervical soft tissues are within normal limits. The lung apices demonstrate no abnormalities. CT/CT cervical spine wo IV con IMPRESSION: 1. No evidence of acute intracranial hemorrhage or edematous territorial infarction. Moderate underlying microangiopathy and generalized cerebral volume loss. 2. No evidence of acute fracture or traumatic subluxation of the cervical spine. Moderate multilevel degenerative spondyloarthropathy of the cervical spine. Electronically signed by: Fransico England DO 10/03/2023 10:01 PM EDT RP
--- NOTE | ~2023-10-03 | XR_ITS ---
Examination: XR knee LT 4V (accession [id number]), XR foot LT min 3V (accession [id number]), XR foot RT min 3V (accession [id number]) Indication: fall Comparison: No pertinent prior studies are currently available for comparison. Technique: 4 views of the left knee with 3 views of each foot Findings: Left knee: No significant knee joint effusion. Bones are in normal anatomic alignment with no acute fracture or dislocation seen. Bones are relatively osteopenic. No cortical disruption or trabecular irregularity to suggest underlying subtle fracture. Extensive vascular calcification noted. Right foot: Bones are diffusely osteopenic. I do not appreciate any acute fracture or dislocation. Extensive vascular calcification seen. Degenerative changes more so on the first MTP joint. Left foot: Bones are normal anatomic alignment with no acute fracture or dislocation. Bones are diffusely osteopenic. Degenerative changes more so on the first MTP joint. Extensive vascular calcification. XR/XR knee LT 4V Impression: Bones are diffusely osteopenic. I do not appreciate any acute fracture or dislocation. Degenerative changes. Extensive vascular calcification. Electronically signed by: Miguel Llanes MD 10/03/2023 09:54 PM EDT
[2023-10-03 20:57] VITALS: BP 130/71; PULSE 85; O2SAT 95; BMI 22.9
[2023-10-03 21:05] VITALS: BP 177/96; PULSE 86; RESP 14; TEMP 36.5; O2SAT 100
--- NOTE | 2023-10-03 21:05 | ED.FALL ---
HPI - Fall General Chief Complaint: Fall Stated Complaint: FALL THIS AFTERNOON,FEET HURT TOO MUCH TO AMBULATE Time Seen by Provider: 10/03/23 20:59 Source: patient, EMS and old records reviewed Mode of arrival: EMS Limitations: other (poor historian) History of Present Illness ED Provider: YULY HPI Narrative: 88 yo female with PMH of GERD, hypothyroidism, HTN, asthma, anemia, MDD, colostomy, presents from [facility] with c/o tripping today and falling around 4pm no headstrike not on thinners. c/o bilateral foot pain and L knee pain. She notes it hurts to walk with her walker now. Got up no issues was not on floor for prolonged time. She came to get her feet checked out as they hurt when she walks. Denies hip or rib pain, no abdominal pain. No preceding symptoms tripped on something in the floor. MD complaint: fall Onset (ago): hour(s) (4pm) Fall from: standing Fall witnessed: no Place fall occurred: home Loss of consciousness: none Prolonged down time: no Symptoms prior to fall: none Context: tripped/slipped Location of injury - extremities: left: knee and bilateral: foot Severity: mild Quality: dull Associated symptoms (after fall): other (hurts to walk) Related Data Home Medications ?Medication ?Instructions ?Recorded ?Confirmed acetaminophen 325 mg tablet 650 mg PO Q4H PRN temp/pain 04/07/23 04/07/23 albuterol sulfate 90 mcg/actuation 1 inh inhalation Q4H PRN Shortness 04/07/23 04/07/23 aerosol inhaler Of Breath Or Wheezing aluminum-mag hydroxide-simethicone 30 ml PO Q4H PRN gi distress 04/07/23 04/07/23 200 mg-200 mg-20 mg/5 mL oral susp (Mintox) amlodipine 2.5 mg tablet 2.5 mg PO DAILY 04/07/23 04/07/23 buspirone 5 mg tablet 5 mg PO TID 04/07/23 04/07/23 calcium carbonate (Calcium 500) 500 mg PO BID 04/07/23 04/07/23 cholecalciferol (vitamin D3) 10 20 mcg PO DAILY 04/07/23 04/07/23 mcg (400 unit) tablet erythromycin 5 mg/gram (0.5 %) eye 0.25 inch ophthalmic (eye) DAILY 04/07/23 04/07/23 ointment PRN affected eyelids ferrous sulfate 325 mg (65 mg 325 mg PO BID 04/07/23 04/07/23 iron) tablet,delayed release fluticasone propionate 110 2 puff inhalation BID 04/07/23 04/07/23 mcg/actuation HFA aerosol inhaler guaifenesin 100 mg/5 mL oral liquid 200 mg PO Q4H PRN Cough 04/07/23 04/07/23 levothyroxine 88 mcg tablet 88 mcg PO DAILY@0600 04/07/23 04/07/23 loratadine 10 mg tablet 10 mg PO DAILY 04/07/23 04/07/23 magnesium hydroxide 400 mg/5 mL 30 ml PO DAILY PRN Constipation 04/07/23 04/07/23 oral suspension (Milk of Magnesia) omeprazole 20 mg capsule,delayed 20 mg PO DAILY@0630 04/07/23 04/07/23 release polyvinyl alcohol 1.4 % eye drops 1 drp ophthalmic (eye) BID 04/07/23 04/07/23 (Artificial Tears (polyvinyl alcohol)) risperidone 0.5 mg tablet 0.5 mg PO BID 04/07/23 04/07/23 simethicone 125 mg chewable tablet 125 mg PO TID 04/07/23 04/07/23 Previous Rx's ?Medication ?Instructions ?Recorded cefazolin 2 gram solution for 2 g IV Q12H 36 days #72 ea 04/20/23 injection Allergies Allergy/AdvReac Type Severity Reaction Status Date / Time Sulfa (Sulfonamide Allergy Severe UNKNOWN Verified 10/03/23 21:00 Antibiotics) [SULFA (SULFONAMIDE ANTIBIOTICS)] Review of Systems Review of Systems: Constitutional : No Fever, No Chills ENT/Mouth : No Ear Pain, No Hoarseness, No sore throat Eyes: No Eye Pain, No Swelling, No Redness, No Foreign Body Cardiovascular : No Chest Pain, No SOB Respiratory : No Cough, No Dyspnea Gastrointestinal : No Nausea, No Vomiting, No Diarrhea, No abdominal Pain Genitourinary : No Dysuria, No Hematuria Musculoskeletal : positive joint pain, No Myalgias, No Joint Swelling Skin : No Skin lacerations, No rash Neuro : No Weakness, No Numbness, No Loss of Consciousness, No Dizziness, No Headache All other systems reviewed and are negative [facility] Past Medical History Attestation statement: The following information was validated with the patient. Source: old records reviewed Medical History MDD (major depressive disorder) Anemia Hypothyroidism Essential (primary) hypertension CKD stage 3 due to type 1 diabetes mellitus Social History Social History Household Members: Other Do you presently have visiting nurse or other home services: Yes (Pt lives At [facility]) Alcohol intake: never Comment: 1:1 sitter Patient Tobacco Use Status: Never used Tobacco Advance Directives: Yes Advance Directives on File: Yes Advance Directives Date on File: 07/20/22 service: No Physical Exam Vital Signs: Vital Signs: Last Vital Signs Temp 97.7 F 10/03/23 21:05 Pulse 86 10/03/23 21:05 Resp 14 10/03/23 21:05 BP 177/96 H 10/03/23 21:05 Pulse Ox 100 10/03/23 21:05 O2 Del Method Room Air 10/03/23 21:05 BMI result Body Mass Index 22.9 Appearance: Alert. Oriented X3. No acute distress. Eyes: Pupils equal, round and reactive to light. ENT: Pharynx normal. no swelling or mass noted Neck: Normal inspection. Neck supple. no midline ttp CVS: Normal heart rate and rhythm. Pulses normal. Chest: no ttp along ribs Respiratory: No respiratory distress. Breath sounds normal. Abdomen: Soft and nontender. Skin: Skin warm and dry. Normal skin color. Normal skin turgor. Extremities: No lower extremity edema. ttp on both feet pulses intact no obvious deformity no ankle swelling, L knee ttp mild bruise noted L patella no pain with ROM of hips Neuro: Oriented X 3. No motor deficit. No sensory deficit. Medical Decision Making Medical Decision Making MDM Narrative: 88 yo female with PMH of GERD, hypothyroidism, HTN, asthma, anemia, MDD, colostomy, presents from [facility] with c/o mechanical fall today slipped denies headstrike not on thinners now notes she has pain in both feet and L knee when she walks sent in for eval - she is NV intact she is alert and oriented will obtain bilateral foot xray though no swelling noted and pulses intact, L knee xray, CT head/cspine given age. Differential Diagnosis Differential Diagnoses: The differential diagnosis associated with the presentation includes sprain, strain, contusion, head injury, fracture Admission/Observation Consideration of admission/observation: Escalation of care including admission/observation considered imaging negative stable for DC Independent Interpretation I performed an independent interpretation of an: Plain X-Ray (no fracture) and CT Scan (no trauma) Radiology Impression Discussion of test interpretation with radiology: I have reviewed the radiologist's reading. Independent Historian Clinical information obtained from an independent historian. History obtained from or confirmed by: EMS External Record Review External record reviewed: Inpatient record Discharge Plan Discharge Clinical Impression: Foot sprain Qualifiers: Encounter type: initial encounter Laterality: unspecified laterality Qualified Code(s): S93.609A - Unspecified sprain of unspecified foot, initial encounter Left knee sprain Qualifiers: Encounter type: initial encounter Involved ligament of knee: unspecified ligament Qualified Code(s): S83.92XA - Sprain of unspecified site of left knee, initial encounter Patient Disposition: Home, Self-Care Instructions: Knee Sprain (ED), Foot Sprain (ED) Additional Instructions: xrays of both feet and L knee negative CT head and cervical spine negative for trauma return for worsening pain or any other concerns Prescriptions: No Action omeprazole 20 mg Capsule,Delayed Release(Dr/Ec) 20 mg PO DAILY@0630 fluticasone propionate 110 mcg/actuation Hfa Aerosol Inhaler 2 puff INHALATION BID amlodipine 2.5 mg Tablet 2.5 mg PO DAILY levothyroxine 88 mcg Tablet 88 mcg PO DAILY@0600 loratadine 10 mg Tablet 10 mg PO DAILY cholecalciferol (vitamin D3) 10 mcg (400 unit) Tablet 20 mcg PO DAILY polyvinyl alcohol [Artificial Tears (polyvin alc)] 1.4 % Drops 1 drp OPHTHALMIC (EYE) BID ferrous sulfate 325 mg (65 mg iron) Tablet,Delayed Release (Dr/Ec) 325 mg PO BID risperidone 0.5 mg Tablet 0.5 mg PO BID simethicone 125 mg Tablet,Chewable 125 mg PO TID buspirone 5 mg Tablet 5 mg PO TID erythromycin 5 mg/gram (0.5 %) Ointment 0.25 inch ophthalmic (eye) DAILY PRN (Reason: affected eyelids) Rx Instructions: 02/09 inch calcium carbonate [Calcium 500] 500 mg calcium (1,250 mg) Tablet,Chewable 500 mg PO BID acetaminophen 325 mg Tablet 650 mg PO Q4H PRN (Reason: temp/pain ) guaifenesin 100 mg/5 mL Liquid 200 mg PO Q4H PRN (Reason: Cough) magnesium hydroxide [Milk of Magnesia] 400 mg/5 mL Suspension 30 ml PO DAILY PRN (Reason: Constipation) alum-mag hydroxide-simeth [Mintox] 200-200-20 mg/5 mL Suspension 30 ml PO Q4H PRN (Reason: gi distress) Rx Instructions: administer between meals and at bedtime albuterol sulfate 90 mcg/actuation Hfa Aerosol Inhaler 1 inh INHALATION Q4H PRN (Reason: Shortness Of Breath Or Wheezing) cefazolin 2 gram recon soln 2 g IV Q12H 36 Days Qty: 72 0RF Print Language: Tuvaluan
[2023-10-03 23:20] VITALS: BP 177/96; PULSE 86; RESP 14; TEMP 36.5; O2SAT 100
== END 2023-10-03 23:21 | disposition home or self-care (01) ==
PROVIDERS: Emergency Provider Emergency Medicine
DX: S93.609A Unspecified sprain of unspecified foot, initial encounter (principal); S83.92XA Sprain of unspecified site of left knee, initial encounter; R51.9 Headache, unspecified; M54.2 Cervicalgia; I10 Essential (primary) hypertension; W01.0XXA Fall on same level from slipping, tripping and stumbling without subsequent striking against object, initial encounter; Y93.89 Activity, other specified; Y92.89 Other specified places as the place of occurrence of the external cause; Y99.8 Other external cause status; Z79.899 Other long term (current) drug therapy
CPT/HCPCS: 70450; 72125; 73564; 73630; 99283; 99284